=== PATIENT | female | born 1940 | race Caucasian/White ===

== ENCOUNTER → 2016-04-19 | Outpatient (CLI) | payer MEDICARE ==
--- NOTE | 2016-04-19 14:54 | CT ---
EXAMINATION TYPE: CT brain wo con DATE OF EXAM: 04/19/2016 2:41 PM COMPARISON: Previous study dated 11/28/2013 HISTORY: MCCULLOUGH, TIA CT DLP: 1085 mGycm Automated exposure control for dose reduction was used. FINDINGS: There is evidence of old, bilateral occipital infarct. The left occipital infarct extends i nto the posterior parietal region. Central structures are midline. There is no evidence of hydrocephalus. No acute focal lesion, mass ef fect or midline shift is seen. I do not see evidence of intracranial blood. Visualized portions of the paranasal sinuses and mastoids are clear. No depressed skull fracture is s een. IMPRESSION: 1. OLD, BILATERAL OCCIPITAL INFARCT. 2. NO ACUTE INTRACRANIAL ABNORMALITY.
--- NOTE | 2016-04-19 15:12 | US ---
EXAMINATION TYPE: US carotid duplex BILAT DATE OF EXAM: 04/19/2016 2:53 PM COMPARISON: NONE CLINICAL HISTORY: G45.9 tia. EXAM MEASUREMENTS: RIGHT: Peak Systolic Velocity (PSV) cm/sec ----- Right CCA: 67.7 ----- Right ICA: 72.1 ----- Right ECA: 99.1 ICA/CCA ratio: 1.1 RIGHT: End Diastole cm/sec ----- Right CCA: 11.9 ----- Right ICA: 30.2 ----- Right ECA: 0.0 LEFT: Peak Systolic Velocity (PSV) cm/sec ----- Left CCA: 69.4 ----- Left ICA: 79.9 ----- Left ECA: 106.9 ICA/CCA ratio: 1.2 LEFT: End Diastole cm/sec ----- Left CCA: 15.4 ----- Left ICA: 27.6 ----- Left ECA: 0.0 VERTEBRALS (direction of flow): Right Vertebral: Antegrade Left Vertebral: Antegrade TECHNOLOGIST IMPRESSION: No significant stenosis seen, no elevated velocities, bilateral plaque note d. Intimal thickening is present. There are some scattered small plaques present. IMPRESSION: 1. Atheromatous plaquing and intimal thickening without significant flow-limiting stenosis. Criteria for Assigning % of Stenosis / Diameter reduction (Estimation based on the indirect measurements of the internal carotid artery velocities (ICA PSV). 1. Normal (no stenosis)=ICA PSV < 125 cm/s: ratio < 2.0: ICA EDV<40 cm/s. 2. Less than 50% stenosis=ICA PSV < 125 cm/s: ratio < 2.0: ICA EDV<40 cm/s. 3. 50 to 69% stenosis=ICA PSV of 125 to 230 cm/s: ration 2.0 ? 4.0: ICA EDV 40-100 cm/s. 4. Greater than 70% stenosis to near occlusion= ICA PSV > 230 cm/s: ratio > 4.0: ICA EDV > 100 cm/s. 5. Near occlusion= ICA PSV velocities may be low or undetectable: variable ratio and ICA EDV. 6. Total occlusion=unable to detect flow.
--- NOTE | 2016-04-19 19:12 | ECHOF ---
Referral Reason:R01.1 heart murmur MEASUREMENTS -------- HEIGHT: 157.5 cm WEIGHT: 83.5 kg BP: 188/80 RVIDd: 2.8 cm (< 3.3) IVSd: 1.3 cm (0.6 - 1.1) LVIDd: 4.5 cm (3.9 - 5.3) LVPWd: 1.3 cm (0.6 - 1.1) IVSs: 1.9 cm LVIDs: 2.9 cm LVPWs: 1.8 cm LA Diam: 3.8 cm (2.7 - 3.8) LAESV Index (A-L): 31.58 ml/m Ao Diam: 3.4 cm (2.0 - 3.7) AV Cusp: 2.3 cm (1.5 - 2.6) MV EXCURSION: 12.039 mm (> 18.000) MV EF SLOPE: 37 mm/s (70 - 150) EPSS: 0.4 cm MV E Luis: 1.19 m/s MV DecT: 284 ms MV A Luis: 1.33 m/s MV E/A Ratio: 0.89 AR PHT: 1040 ms RAP: 5.00 mmHg RVSP: 28.31 mmHg FINDINGS -------- Sinus rhythm. This was a technically good study. The left ventricular size is normal. There is mild concentric left ventricular hypertrophy. Overall left ventricular systolic function is normal with, an EF between 55 - 60 %. The right ventricle is normal in size and function. LA is midly dilated 29-33ml/m2. The right atrium is normal in size. There is mild to moderate aortic valve sclerosis. There is mild aortic regurgitation. The mitral valve leaflets are mildly thickened. Mild mitral annular calcification present. Mild tricuspid regurgitation present. Right ventricular systolic pressure is normal at < 35 mmHg. Trace/mild (physiologic) pulmonic regurgitation. The aortic root size is normal. Normal inferior vena cava with normal inspiratory collapse consistent with estimated right atrial pressure of 5 mmHg. There is no pericardial effusion. CONCLUSIONS -------- 1. Sinus rhythm. 2. There is mild aortic regurgitation. 3. The mitral valve leaflets are mildly thickened. 4. Mild mitral annular calcification present. 5. Mild tricuspid regurgitation present. 6. Right ventricular systolic pressure is normal at < 35 mmHg. 7. Trace/mild (physiologic) pulmonic regurgitation. 8. The aortic root size is normal. 9. Normal inferior vena cava with normal inspiratory collapse consistent with estimated right atrial pressure of 5 mmHg. 10. There is no pericardial effusion. 11. This was a technically good study. 12. The left ventricular size is normal. 13. There is mild concentric left ventricular hypertrophy. 14. Overall left ventricular systolic function is normal with, an EF between 55 - 60 %. 15. The right ventricle is normal in size and function. 16. LA is midly dilated 29-33ml/m2. 17. The right atrium is normal in size. 18. There is mild to moderate aortic valve sclerosis. VACCINE CUSTOMER REPRESENTATIVE: Natividad Falcon RDCS
== END | disposition home or self-care (01) ==
LOC: RADECHMAIN 13:41
PROVIDERS: ATTEND Family Medicine
DX: G45.9 Transient cerebral ischemic attack, unspecified (principal); R01.1 Cardiac murmur, unspecified
CPT/HCPCS: 70450; 93306; 93880

== ENCOUNTER → 2016-09-26 | Outpatient (CLI) | payer MEDICARE ==
--- NOTE | 2016-09-26 14:25 | XR ---
EXAMINATION TYPE: XR foot complete LT DATE OF EXAM: 09/26/2016 CLINICAL HISTORY: pain TECHNIQUE: Frontal, lateral and oblique images of the left foot are obtained. COMPARISON: None. FINDINGS: There is no acute fracture/dislocation evident. Moderate hallux valgus deformity at the fi rst metatarsal phalangeal joint. The overlying soft tissue appears unremarkable. IMPRESSION: There is no acute fracture or dislocation. ICD 10 NO FRACTURE, INITIAL EVALUATION
== END ==
LOC: RADXRMAIN 13:48
PROVIDERS: ATTEND Family Medicine
DX: M79.675 Pain in left toe(s) (principal)

== ENCOUNTER → 2017-05-06 | Outpatient (CLI) | payer MEDICARE ==
--- NOTE | 2017-05-06 10:15 | XR ---
EXAMINATION TYPE: XR ankle complete LT DATE OF EXAM: 05/06/2017 CLINICAL HISTORY: Left ankle pain after twisting injury with swelling. TECHNIQUE: Frontal, lateral and oblique images of the left ankle are obtained. COMPARISON: None. FINDINGS: There is no acute fracture/dislocation evident in the left ankle. The ankle mortise appea rs within normal limits. There is moderate soft tissue swelling about the ankle joint. Atheromatous c alcifications are seen of the dorsalis pedis and posterior tibial arteries. Small plantar and moderat e Achilles enthesophytes are noted. IMPRESSION: Moderate soft tissue swelling of the ankle indicative of soft tissue injury. MR could be performed to further evaluate for ligamentous and tendinous injury. No evidence of fracture or disloc ation of the left ankle.
== END | disposition home or self-care (01) ==
LOC: RADXRMAIN 08:17
PROVIDERS: ATTEND Family Medicine
DX: M79.89 Other specified soft tissue disorders (principal); M25.572 Pain in left ankle and joints of left foot

== ENCOUNTER → 2017-11-05 | Outpatient (CLI) | payer MEDICARE ==
[2017-11-05 17:34] LABS: Potassium 4.3 mmol/L (3.5-5.1)
[2017-11-06 03:48] LABS: Hemoglobin A1C 7.6 % (4.0-6.0)
== END | disposition home or self-care (01) ==
LOC: LABWHC1 16:47
PROVIDERS: ATTEND Family Medicine
DX: E11.9 Type 2 diabetes mellitus without complications (principal); I10 Essential (primary) hypertension; Z79.899 Other long term (current) drug therapy
CPT/HCPCS: 36415; 80051; 82565; 83036; 83880; 84520

== ENCOUNTER → 2018-01-19 | Outpatient (CLI) | payer MEDICARE ==
[2018-01-19 10:49] LABS: Basophils % (A) 1 %; Eosinophils # (A) 0.2 k/uL (0-0.7); Eosinophils % (A) 3 %; HCT 37.6 % (34.0-46.0); HGB 12.4 gm/dL (11.4-16.0); Lymphocytes # (A) 2.2 k/uL (1.0-4.8); Lymphocytes % (A) 31 %; MCH 31.1 pg (25.0-35.0); MCV 94.1 fL (80.0-100.0); Mean Platelet Volume 7.6; Monocytes # (A) 0.5 k/uL (0-1.0); Monocytes % (A) 8 %; Neutrophils # (A) 3.9 k/uL (1.3-7.7); Neutrophils % (A) 56 %; Platelet Count 201 k/uL (150-450); RBC 3.99 m/uL (3.80-5.40); RDW 12.9 % (11.5-15.5)
[2018-01-19 18:07] LABS: Anion Gap 9.2 mmol/L (4.00-12.00); Carbon Dioxide 30.8 mmol/L (21.6-31.8); Potassium 4.3 mmol/L (3.5-5.5)
== END | disposition home or self-care (01) ==
LOC: LABWHC1 09:42
PROVIDERS: ATTEND Family Medicine
DX: I10 Essential (primary) hypertension (principal); B89 Unspecified parasitic disease; Z79.899 Other long term (current) drug therapy
CPT/HCPCS: 36415; 80051; 80061; 82565; 84443; 84520; 85025

== ENCOUNTER 2018-03-08 12:57 | Emergency (ER) | payer MEDICARE ==
[2018-03-08 13:24] VITALS: RESP 18
[2018-03-08] MEDS ORDERED: SODIUM CHLORIDE 0.9% 1,000 ML IV STA (13:53)
[2018-03-08 14:34] LABS: Basophils % (A) 0 %; Eosinophils # (A) 0.1 k/uL (0-0.7); Eosinophils % (A) 1 %; HCT 39.6 % (34.0-46.0); HGB 13.2 gm/dL (11.4-16.0); Lymphocytes # (A) 0.8 k/uL (1.0-4.8); Lymphocytes % (A) 5 %; MCH 30.9 pg (25.0-35.0); MCHC 33.3 g/dL (31.0-37.0); MCV 92.7 fL (80.0-100.0); Mean Platelet Volume 7.8; Monocytes # (A) 0.6 k/uL (0-1.0); Monocytes % (A) 4 %; Neutrophils # (A) 13.3 k/uL (1.3-7.7); Neutrophils % (A) 89 %; Platelet Count 205 k/uL (150-450); RBC 4.27 m/uL (3.80-5.40); RDW 12.9 % (11.5-15.5)
[2018-03-08 14:42] LABS: Albumin 4.2 g/dL (3.5-5.0); Calcium 9.7 mg/dL (8.4-10.2); Potassium 4.3 mmol/L (3.5-5.1); Total Bilirubin 0.5 mg/dL (0.2-1.3)
--- NOTE | 2018-03-08 15:26 | ED ---
Abdominal Pain HPI - General Chief Complaint: Urogenital Stated Complaint: Hematuria Time Seen by Provider: 03/08/18 13:52 Source: patient, RN notes reviewed, old records reviewed Mode of arrival: ambulatory Limitations: no limitations - History of Present Illness Initial Comments: This is a 78-year-old female the ER for evaluation. States she is presenting for evaluation regards to abdominal pain. Right flank pain. Patient also had hematuria symptoms episodic intermittent 3 days. No prior history of similar complaint no time is no urge incontinence no fever no burning with urination. No prior history of kidney stones currently. Patient denies any other complaints no current abdominal pain. No bowel issues MD Complaint: abdominal pain, flank pain (Right) -: days(s) (3) Location: suprapubic Radiation: RLQ, R flank Migration to: epigastric Severity: moderate Severity scale (1-10): 6 Quality: stabbing Consistency: constant Improves With: nothing Worsens With: nothing Associated Symptoms: denies other symptoms, nausea - Related Data Home Medications Medication Instructions Recorded Confirmed Aspirin 81 mg PO DAILY 11/29/13 03/08/18 Furosemide [Lasix] 40 mg PO DAILY 11/29/13 03/08/18 Simvastatin [Zocor] 80 mg PO HS 11/29/13 03/08/18 Carvedilol [Coreg] 6.25 mg PO BID 03/08/18 03/08/18 Cholecalciferol [Vitamin D3] 1,000 unit PO DAILY 03/08/18 03/08/18 Linagliptin [Tradjenta] 5 mg PO HS 03/08/18 03/08/18 Magnesium 200 mg PO DAILY 03/08/18 03/08/18 Multivitamins, Thera [Multivitamin 1 tab PO DAILY 03/08/18 03/08/18 (formulary)] Repaglinide 0.5 mg PO BID-W/MEALS 03/08/18 03/08/18 predniSONE 10 mg PO DAILY 03/08/18 03/08/18 Allergies Allergy/AdvReac Type Severity Reaction Status Date / Time No Known Allergies Allergy Verified 03/08/18 13:58 Review of Systems ROS Statement: Those systems with pertinent positive or pertinent negative responses have been documented in the HPI. ROS Other: All systems not noted in ROS Statement are negative. Past Medical History Past Medical History: Diabetes Mellitus, Hyperlipidemia, Hypertension History of Any Multi-Drug Resistant Organisms: None Reported Past Surgical History: Hysterectomy, Tonsillectomy Additional Past Surgical History / Comment(s): right leg brittney stripping Past Anesthesia/Blood Transfusion Reactions: No Reported Reaction Past Psychological History: No Psychological Hx Reported Smoking Status: Former smoker Past Alcohol Use History: None Reported Past Drug Use History: None Reported - Past Family History Father Family Medical History: No Reported History Mother Family Medical History: No Reported History General Exam Limitations: no limitations General appearance: alert, in no apparent distress Head exam: Present: atraumatic, normocephalic, normal inspection Eye exam: Present: normal appearance, PERRL, EOMI. Absent: scleral icterus, conjunctival injection, periorbital swelling ENT exam: Present: normal exam, mucous membranes moist Neck exam: Present: normal inspection. Absent: tenderness, meningismus, lymphadenopathy Respiratory exam: Present: normal lung sounds bilaterally. Absent: respiratory distress, wheezes, rales, rhonchi, stridor Cardiovascular Exam: Present: regular rate, normal rhythm, normal heart sounds. Absent: systolic murmur, diastolic murmur, rubs, gallop, clicks GI/Abdominal exam: Present: soft, normal bowel sounds. Absent: distended, tenderness, guarding, rebound, rigid Extremities exam: Present: normal inspection, full ROM, normal capillary refill. Absent: tenderness, pedal edema, joint swelling, calf tenderness Back exam: Present: normal inspection Neurological exam: Present: alert, oriented X3, CN II-XII intact Psychiatric exam: Present: normal affect, normal mood Skin exam: Present: warm, dry, intact, normal color. Absent: rash Course Vital Signs 03/08/18 13:22 Temperature 98.5 F Pulse Rate 97 Respiratory 18 Rate Blood Pressure 106/57 O2 Sat by Pulse 97 Oximetry - Reevaluation(s) Reevaluation #1: 03/08/18 17:43 Medical record is reviewed A she is without significant complaint able to urinate without difficulty, Reevaluation #2: 03/08/18 18:13 Patient did have prevoid greater than 500 post void less than 200 Medical Decision Making - Medical Decision Making 78 female the ER with flank pain that section recently passed kidney stone. No blood in the urine no urinary check infection we'll culture urine, patient can be discharged home - Lab Data Result diagrams: 03/08/18 14:15 12/30/18 14:15 Lab Results 03/08/18 03/08/18 03/08/18 Range/Units 14:15 14:15 15:20 WBC 15.0 H (3.8-10.6) k/uL RBC 4.27 (3.80-5.40) m/uL Hgb 13.2 (11.4-16.0) gm/dL Hct 39.6 (34.0-46.0) % MCV 92.7 (80.0-100.0) fL MCH 30.9 (25.0-35.0) pg MCHC 33.3 (31.0-37.0) g/dL RDW 12.9 (11.5-15.5) % Plt Count 205 (150-450) k/uL Neutrophils % 89 % Lymphocytes % 5 % Monocytes % 4 % Eosinophils % 1 % Basophils % 0 % Neutrophils # 13.3 H (1.3-7.7) k/uL Lymphocytes # 0.8 L (1.0-4.8) k/uL Monocytes # 0.6 (0-1.0) k/uL Eosinophils # 0.1 (0-0.7) k/uL Basophils # 0.0 (0-0.2) k/uL Sodium 144 (137-145) mmol/L Potassium 4.3 (3.5-5.1) mmol/L Chloride 106 (98-107) mmol/L Carbon Dioxide 30 (22-30) mmol/L Anion Gap 8 mmol/L BUN 33 H (7-17) mg/dL Creatinine 1.53 H (0.52-1.04) mg/dL Est GFR (CKD-EPI)AfAm 38 (>60 ml/min/1.73 sqM) Est GFR (CKD-EPI)NonAf 33 (>60 ml/min/1.73 sqM) Glucose 164 H (74-99) mg/dL Calcium 9.7 (8.4-10.2) mg/dL Total Bilirubin 0.5 (0.2-1.3) mg/dL AST 20 (14-36) U/L ALT 25 (9-52) U/L Alkaline Phosphatase 68 (38-126) U/L Total Protein 7.0 (6.3-8.2) g/dL Albumin 4.2 (3.5-5.0) g/dL Amylase 87 (30-110) U/L Lipase 434 H (23-300) U/L Urine Color Light Yellow Urine Appearance Clear (Clear) Urine pH 7.0 (5.0-8.0) Ur Specific [place] 1.005 (1.001-1.035) Urine Protein Negative (Negative) Urine Glucose (UA) Negative (Negative) Urine Ketones Negative (Negative) Urine Blood Negative (Negative) Urine Nitrite Negative (Negative) Urine Bilirubin Negative (Negative) Urine Urobilinogen <2.0 (<2.0) mg/dL Ur Leukocyte Esterase Negative (Negative) - Radiology Data Radiology results: report reviewed (CT head and pelvis is negative for significant acute disease), image reviewed Disposition Clinical Impression: Right flank pain Disposition: HOME SELF-CARE Condition: Good Instructions: Flank Pain (ED) Is patient prescribed a controlled substance at d/c from ED?: No Referrals: Tu Coon MD [Primary Care Provider] - 1-2 days
[2018-03-08 15:43] LABS: Appearance,Urine Clear (Clear); Bilirubin,Urine Negative (Negative); Blood,Urine Negative (Negative); Color,Urine Light Yellow; Glucose,Urine (UA) Negative (Negative); Ketones,Urine Negative (Negative); Leukocyte Esterase,Urine Negative (Negative); Nitrite,Urine Negative (Negative); Protein,Urine Negative (Negative); Specific Gravity,Urine 1.005 (1.001-1.035); Urobilinogen,Urine <2.0 mg/dL (<2.0)
--- NOTE | 2018-03-08 16:36 | CT ---
EXAMINATION TYPE: CT abdomen pelvis wo con DATE OF EXAM: 03/08/2018 COMPARISON: 03/04/2012 HISTORY: hematuria CT DLP: 692.5 mGycm Automated exposure control for dose reduction was used. TECHNIQUE: Helical acquisition of images was performed from the lung bases through the pelvis. FINDINGS: There is some mild atelectasis at the lung bases. There is no pleural effusion. Liver shows no focal defect. There are numerous calcified gallstones. Bile ducts are not dilated. There is no evidence of a pancreatic mass. Spleen has normal size and contour. There is no adrenal mass. There is slight prominence of the left ureter but no ureteral stones seen. Bladder distends smoothly. There is no free fluid in the pelvis. I see no renal calculus. There is va scular calcification. There is no retroperitoneal adenopathy. There is no ascites. There are a few sigmoid diverticula. There is no sign of diverticulitis. There i s no inguinal hernia. Appendix appears normal. There is no sign of a bowel obstruction. There are spo ndylotic changes in the lumbar spine. I see no focal bone destruction. There is no evidence of free a ir. IMPRESSION: THERE IS VERY MILD ENLARGEMENT OF THE LEFT URETER AND TO LESSER EXTENT THE RIGHT URETER COMPARED TO O LD EXAM WITHOUT A STONE SEEN. NO RENAL CALCULUS SEEN. I DO NOT SUSPECT RENAL OBSTRUCTION. THERE IS CLEARING OF THE INFLAMMATORY CHANGES OF THE DESCENDING COLON COMPARED TO OLD EXAM. THERE IS CLEARING OF THE DILATED SMALL BOWEL COMPARED TO OLD EXAM. NUMEROUS CALCIFIED GALLSTONES. I DO NOT SEE A CAUSE FOR HEMATURIA.
[2018-03-08 18:12] VITALS: BP 148/70; PULSE 95; TEMP 98.1
== END 2018-03-08 18:10 | disposition home or self-care (01) ==
LOC: EC 12:57
DX: R10.31 Right lower quadrant pain (principal); R10.13 Epigastric pain; R11.0 Nausea; E11.9 Type 2 diabetes mellitus without complications; E78.5 Hyperlipidemia, unspecified; I10 Essential (primary) hypertension; Z87.891 Personal history of nicotine dependence; Z79.82 Long term (current) use of aspirin; Z79.52 Long term (current) use of systemic steroids; Z79.899 Other long term (current) drug therapy
CPT/HCPCS: 36415; 74176; 80053; 81003; 82150; 83690; 85025; 96360; 99284

== ENCOUNTER → 2018-04-14 | Outpatient (CLI) | payer MEDICARE ==
[2018-04-14 16:44] LABS: Anion Gap 8.1 mmol/L (4.00-12.00); Carbon Dioxide 34.9 mmol/L (21.6-31.8); Potassium 4.3 mmol/L (3.5-5.5)
== END | disposition home or self-care (01) ==
LOC: LABWHC1 08:38
PROVIDERS: ATTEND Family Medicine
DX: I10 Essential (primary) hypertension (principal); E11.9 Type 2 diabetes mellitus without complications
CPT/HCPCS: 36415; 80051; 82150; 82565; 83690; 84520

== ENCOUNTER → 2018-06-22 | Outpatient (CLI) | payer MEDICARE ==
[2018-06-22 16:52] LABS: Anion Gap 9.1 mmol/L (4.00-12.00); Carbon Dioxide 30.9 mmol/L (21.6-31.8); LDL Cholesterol,Calculated 115.4 mg/dL (0.0-131.0); Potassium 4.2 mmol/L (3.5-5.5); VLDL Calculation 44.6 mg/dL (5.00-40.00)
[2018-06-22 20:23] LABS: Hemoglobin A1C 9.4 % (4.0-6.0)
== END | disposition home or self-care (01) ==
LOC: LABWHC1 08:44
PROVIDERS: ATTEND Family Medicine
DX: E11.9 Type 2 diabetes mellitus without complications (principal)
CPT/HCPCS: 36415; 80051; 80061; 82043; 82565; 82570; 83036; 84520

== ENCOUNTER → 2018-07-03 | Outpatient (CLI) | payer MEDICARE ==
[2018-07-03 13:15] LABS: Basophils % (A) 0 %; Eosinophils # (A) 0.2 k/uL (0-0.7); Eosinophils % (A) 1 %; HCT 39.4 % (34.0-46.0); HGB 13.2 gm/dL (11.4-16.0); Lymphocytes # (A) 1.3 k/uL (1.0-4.8); Lymphocytes % (A) 12 %; MCH 30.9 pg (25.0-35.0); MCHC 33.4 g/dL (31.0-37.0); MCV 92.7 fL (80.0-100.0); Mean Platelet Volume 8.3; Monocytes # (A) 0.4 k/uL (0-1.0); Monocytes % (A) 4 %; Neutrophils % (A) 81 %; Platelet Count 214 k/uL (150-450); RBC 4.25 m/uL (3.80-5.40); RDW 13.6 % (11.5-15.5); WBC 11.1 k/uL (3.8-10.6)
== END | disposition home or self-care (01) ==
LOC: LABWHC1 12:10
PROVIDERS: ATTEND Family Medicine
DX: B89 Unspecified parasitic disease (principal)
CPT/HCPCS: 36415; 85025

== ENCOUNTER 2018-08-12 10:03 | Emergency (ER) | payer MEDICARE ==
[2018-08-12 10:10] VITALS: RESP 18
[2018-08-12] MEDS ORDERED: SODIUM CHLORIDE 0.9% 500 ML 500 ML IV STA (10:34)
[2018-08-12] MEDS ORDERED: MECLIZINE 12.5 MG TAB PO STA (10:35)
--- NOTE | 2018-08-12 11:00 | ED ---
General Adult HPI - General Chief complaint: Dizziness Stated complaint: fall, dizziness Time Seen by Provider: 08/12/18 10:15 Source: patient, RN notes reviewed Mode of arrival: ambulatory Limitations: no limitations - History of Present Illness Initial comments: 78-year-old female with a past medical history of hyperlipidemia, hypertension, diabetes mellitus presents to the emergency department for a chief complaint of weakness. Patient states that she got up from her bed to urinate several times throughout the night and had no difficulties. However when she got up today she felt a little dizzy and had some generalized weakness. States her arms and legs bilaterally did not want to work properly. Patient does state that she has had this dizziness for years and it comes and goes. States she fell and hit her head against a china cabinet. Patient also fell on her right hip. States it is painful but she is able to ambulate on it. Patient denies loss of consciousness. She does admit to taking Plavix. Patient states she has a big "goose egg" on her head, denies any significant headaches. Denies any neck or back pain. Denies any fevers or chills. Denies cough or dysuria.Patient has no other complaints at this time including shortness of breath, chest pain, abdominal pain, nausea or vomiting, headache, or visual changes. - Related Data Home Medications Medication Instructions Recorded Confirmed Aspirin 81 mg PO DAILY 11/29/13 08/12/18 Furosemide [Lasix] 40 mg PO DAILY 11/29/13 08/12/18 Simvastatin [Zocor] 80 mg PO HS 11/29/13 08/12/18 Magnesium 200 mg PO DAILY 03/08/18 08/12/18 Multivitamins, Thera [Multivitamin 1 tab PO DAILY 03/08/18 08/12/18 (formulary)] Repaglinide 0.5 mg PO BID-W/MEALS 03/08/18 08/12/18 predniSONE 10 mg PO DAILY 03/08/18 08/12/18 Carvedilol [Coreg] 12.5 mg PO BID 08/12/18 08/12/18 Clopidogrel [Plavix] 75 mg PO DAILY 08/12/18 08/12/18 Ferrous Sulfate [Feosol] 325 mg PO DAILY 08/12/18 08/12/18 Previous Rx's Medication Instructions Recorded Cephalexin [Keflex] 500 mg PO Q6HR 7 Days cap 08/12/18 Allergies Allergy/AdvReac Type Severity Reaction Status Date / Time No Known Allergies Allergy Verified 08/12/18 10:15 Review of Systems ROS Statement: Those systems with pertinent positive or pertinent negative responses have been documented in the HPI. ROS Other: All systems not noted in ROS Statement are negative. Past Medical History Past Medical History: Diabetes Mellitus, Hyperlipidemia, Hypertension History of Any Multi-Drug Resistant Organisms: None Reported Past Surgical History: Hysterectomy, Tonsillectomy Additional Past Surgical History / Comment(s): right leg brittney stripping Past Anesthesia/Blood Transfusion Reactions: No Reported Reaction Past Psychological History: No Psychological Hx Reported Smoking Status: Former smoker Past Alcohol Use History: None Reported Past Drug Use History: None Reported - Past Family History Father Family Medical History: No Reported History Mother Family Medical History: No Reported History General Exam Limitations: no limitations General appearance: alert, in no apparent distress Head exam: Present: normocephalic. Absent: atraumatic (patient has a large 5 cm x 5 cm hematoma noted over the right parietal scalp) Eye exam: Present: normal appearance, PERRL, EOMI. Absent: scleral icterus, conjunctival injection, periorbital swelling, periorbital tenderness (neg raccoon sign) ENT exam: Present: normal exam, normal oropharynx, mucous membranes moist, TM's normal bilaterally (neg hemotympanum), normal external ear exam Neck exam: Present: normal inspection, full ROM. Absent: tenderness, meningismus, lymphadenopathy Respiratory exam: Present: normal lung sounds bilaterally. Absent: respiratory distress, wheezes, rales, rhonchi, stridor Cardiovascular Exam: Present: regular rate, normal rhythm, normal heart sounds. Absent: systolic murmur, diastolic murmur, rubs, gallop, clicks GI/Abdominal exam: Present: soft, normal bowel sounds. Absent: distended, tenderness, guarding, rebound, rigid Extremities exam: Present: full ROM (Full ROM of the right hip), normal capillary refill (Capillary refill less than 2 seconds, DP pulse 2+ in the right lower extremity). Absent: tenderness (No tenderness noted in the right hip), calf tenderness (Tenderness, negative Homans sign) Back exam: Absent: vertebral tenderness (No tenderness noted of the cervical thoracic or lumbar spine) Neurological exam: Present: alert, oriented X3, CN II-XII intact, other (GCS 15) Expanded Patient oriented to: Present: person, place, time Speech: Present: fluid speech Cranial nerves: EOM's Intact: Normal, Tongue Deviation: Normal, Nystagmus: Normal, Facial Sensation: Normal Cerebellar function: Finger to Nose: Normal Upper motor neuron: Pronator Drift: Normal Sensory exam: Upper Extremity Light Touch: Normal, Upper Extremity Pin Prick: Normal, Lower Extremity Light Touch: Normal, Lower Extremity Pin Prick: Normal Motor strength exam: RUE: 5, LUE: 5, RLE: 5, LLE: 5 Eye Response: (4) open spontaneously Motor Response: (6) obeys commands Verbal Response: (5) oriented Evaristo Total: 15 Psychiatric exam: Present: normal affect, normal mood Course Vital Signs 08/12/18 08/12/18 10:06 11:38 Temperature 97.8 F 98.3 F Pulse Rate 61 60 Respiratory 18 18 Rate Blood Pressure 165/77 178/84 O2 Sat by Pulse 98 95 Oximetry Medical Decision Making - Medical Decision Making 78-year-old female presents to the emergency department for a chief complaint of weakness. States that she got up from her bed to urinate several times at the night but had no difficulty. However when she got up today she felt a little dizzy and had some generalized weakness. States that she has had this dizziness for years and comes and goes. Denies dizziness at this time. On exam patient does not have any abdominal or CVA tenderness. She is well-appearing. Complaining of right hip pain. However is ambulatory with minimal assistance. Neurovasc status intact in the right lower leg. No thoracic or lumbar spine tenderness. CBC unremarkable. CMP does show a creatinine of 1.47, near patient's baseline. Troponin less than 0.012. CT brain shows no acute intracranial hemorrhage or midline shift. No significant change from prior. CT C-spine shows no acute fracture or dislocation. No acute fracture or dislocation noted in the right hip or pelvis. Chest x-ray shows cardiomegaly and chronic parenchymal changes without acute pulmonary process. No suspicious focal airspace opacity. High riding humeral head noted with possible rotator cuff tears bilaterally however patient denying any acute pain at this time. Patient does have an acute urinary tract infection noted. Likely cause of p atient's symptoms. Patient will be given Rocephin IV here in the emergency department. Discussed with family and they're comfortable taking patient home. Patient lives with daughter who can assist her. Patient ambulatory in the ER,feeling much better than this morning. Patient will be given Keflex outpatient. However did discuss following up with primary care in 1-2 days and returning here if patient has any worsening symptoms or develops fevers. - Lab Data Result diagrams: 08/12/18 11:20 08/12/18 11:20 Lab Results 08/12/18 08/12/18 08/12/18 Range/Units 11:20 11:20 11:20 WBC 11.5 H (3.8-10.6) k/uL RBC 4.10 (3.80-5.40) m/uL Hgb 12.3 (11.4-16.0) gm/dL Hct 36.6 (34.0-46.0) % MCV 89.2 (80.0-100.0) fL MCH 29.9 (25.0-35.0) pg MCHC 33.5 (31.0-37.0) g/dL RDW 13.8 (11.5-15.5) % Plt Count 278 (150-450) k/uL Neutrophils % 78 % Lymphocytes % 12 % Monocytes % 6 % Eosinophils % 2 % Basophils % 0 % Neutrophils # 8.9 H (1.3-7.7) k/uL Lymphocytes # 1.4 (1.0-4.8) k/uL Monocytes # 0.7 (0-1.0) k/uL Eosinophils # 0.3 (0-0.7) k/uL Basophils # 0.0 (0-0.2) k/uL PT (9.0-12.0) sec INR (<1.2) APTT (22.0-30.0) sec Sodium 144 (137-145) mmol/L Potassium 3.8 (3.5-5.1) mmol/L Chloride 104 (98-107) mmol/L Carbon Dioxide 32 H (22-30) mmol/L Anion Gap 8 mmol/L BUN 31 H (7-17) mg/dL Creatinine 1.47 H (0.52-1.04) mg/dL Est GFR (CKD-EPI)AfAm 39 (>60 ml/min/1.73 sqM) Est GFR (CKD-EPI)NonAf 34 (>60 ml/min/1.73 sqM) Glucose 65 L (74-99) mg/dL Calcium 9.3 (8.4-10.2) mg/dL Magnesium 2.5 H (1.6-2.3) mg/dL Total Bilirubin 0.6 (0.2-1.3) mg/dL AST 34 (14-36) U/L ALT 25 (9-52) U/L Alkaline Phosphatase 68 (38-126) U/L Troponin I (0.000-0.034) ng/mL NT-Pro-B Natriuret Pep 376 pg/mL Total Protein 6.6 (6.3-8.2) g/dL Albumin 4.1 (3.5-5.0) g/dL Urine Color Urine Appearance (Clear) Urine pH (5.0-8.0) Ur Specific [place] (1.001-1.035) Urine Protein (Negative) Urine Glucose (UA) (Negative) Urine Ketones (Negative) Urine Blood (Negative) Urine Nitrite (Negative) Urine Bilirubin (Negative) Urine Urobilinogen (<2.0) mg/dL Ur Leukocyte Esterase (Negative) Urine RBC (0-5) /hpf Urine WBC (0-5) /hpf Urine WBC Clumps (None) /hpf Ur Squamous Epith Cells (0-4) /hpf Urine Bacteria (None) /hpf 08/12/18 08/12/18 08/12/18 Range/Units 11:20 11:20 11:20 WBC (3.8-10.6) k/uL RBC (3.80-5.40) m/uL Hgb (11.4-16.0) gm/dL Hct (34.0-46.0) % MCV (80.0-100.0) fL MCH (25.0-35.0) pg MCHC (31.0-37.0) g/dL RDW (11.5-15.5) % Plt Count (150-450) k/uL Neutrophils % % Lymphocytes % % Monocytes % % Eosinophils % % Basophils % % Neutrophils # (1.3-7.7) k/uL Lymphocytes # (1.0-4.8) k/uL Monocytes # (0-1.0) k/uL Eosinophils # (0-0.7) k/uL Basophils # (0-0.2) k/uL PT 10.3 (9.0-12.0) sec INR 1.0 (<1.2) APTT 22.2 (22.0-30.0) sec Sodium (137-145) mmol/L Potassium (3.5-5.1) mmol/L Chloride (98-107) mmol/L Carbon Dioxide (22-30) mmol/L Anion Gap mmol/L BUN (7-17) mg/dL Creatinine (0.52-1.04) mg/dL Est GFR (CKD-EPI)AfAm (>60 ml/min/1.73 sqM) Est GFR (CKD-EPI)NonAf (>60 ml/min/1.73 sqM) Glucose (74-99) mg/dL Calcium (8.4-10.2) mg/dL Magnesium (1.6-2.3) mg/dL Total Bilirubin (0.2-1.3) mg/dL AST (14-36) U/L ALT (9-52) U/L Alkaline Phosphatase (38-126) U/L Troponin I <0.012 (0.000-0.034) ng/mL NT-Pro-B Natriuret Pep pg/mL Total Protein (6.3-8.2) g/dL Albumin (3.5-5.0) g/dL Urine Color Yellow Urine Appearance Cloudy H (Clear) Urine pH 7.5 (5.0-8.0) Ur Specific [place] 1.010 (1.001-1.035) Urine Protein Trace H (Negative) Urine Glucose (UA) Negative (Negative) Urine Ketones Negative (Negative) Urine Blood Moderate H (Negative) Urine Nitrite Positive H (Negative) Urine Bilirubin Negative (Negative) Urine Urobilinogen <2.0 (<2.0) mg/dL Ur Leukocyte Esterase Large H (Negative) Urine RBC 9 H (0-5) /hpf Urine WBC >182 H (0-5) /hpf Urine WBC Clumps Many H (None) /hpf Ur Squamous Epith Cells 1 (0-4) /hpf Urine Bacteria Rare H (None) /hpf Disposition Clinical Impression: Urinary tract infection, Fall, Head injury Disposition: HOME SELF-CARE Condition: Good Instructions (If sedation given, give patient instructions): Urinary Tract Infection in Women (ED), Head Injury (ED) Additional Instructions: Please take antibiotic as directed. Please follow-up with primary care in 1-2 days. If you're having any worsening symptoms such as fever or concern for additional falls return here to the emergency department. Prescriptions: Cephalexin [Keflex] 500 mg PO Q6HR 7 Days cap Is patient prescribed a controlled substance at d/c from ED?: No Referrals: Tu Coon MD [Primary Care Provider] - 1-2 days Time of Disposition: 12:39
--- NOTE | 2018-08-12 11:05 | CT ---
EXAMINATION TYPE: CT brain cspine wo con DATE OF EXAM: 08/12/2018 COMPARISON: CT brain April 19, 2016. HISTORY: headache and neck pain post fall with blow to head. CT DLP: 1294.3 mGycm. Automated Exposure Control for Dose Reduction was Utilized. TECHNIQUE: CT scan of the head and cervical spine are performed without contrast. FINDINGS: There is no acute intracranial hemorrhage or midline shift identified. There is ventricul ar and sulcal prominence. 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 The globe s are intact and the visualized sinuses are clear. The calvarium is intact. Moderate calcified plaque distal internal carotid arteries is present bilaterally. Cervical spine is visualized in its entirety from C1 through upper thoracic levels and demonstrates s atisfactory alignment without evidence of acute fracture or dislocation. Prevertebral soft tissue ap pears within normal limits. The C1-C2 articulation is within normal limits on the coronal images. V ertebral body heights are maintained. There is moderate multilevel disc space narrowing and spurring C3-C4 through C5-C6 levels. Posterior spur disc complexes are effacing anterior thecal sac at C4-C5 a nd C5-C6 levels on sagittal images. Review of axial images shows multilevel uncovertebral facet degen erative changes contributing to multilevel bilateral neural foraminal narrowing. Left thyroid lobe is small in size. Visualized lung apices show emphysematous change and moderate pleural/parenchymal sca rring posteriorly. There is mild to moderate calcified plaque centered near bilateral carotid bulbs. IMPRESSION: 1. There is no acute fracture or dislocation evident in the cervical spine. 2. No acute intracranial hemorrhage or midline shift is seen. No significant change from prior.
--- NOTE | 2018-08-12 11:06 | XR ---
EXAMINATION TYPE: XR chest 2V DATE OF EXAM: 08/12/2018 COMPARISON: Chest x-ray November 28, 2013 HISTORY: History of COPD with weakness. TECHNIQUE: Frontal and lateral views of the chest are obtained. FINDINGS: There is chronic emphysematous change without suspicious focal air space opacity, pleural effusion, or pneumothorax seen. The cardiac silhouette size remains enlarged with atherosclerotic ch keeley in the aortic knob. Multilevel spurring in the thoracic spine is present. High riding humeral he ads suggest chronic rotator cuff tears bilaterally IMPRESSION: Cardiomegaly and chronic parenchymal change without acute pulmonary process.
--- NOTE | 2018-08-12 11:11 | XR ---
EXAMINATION TYPE: XR Hip RT and AP Pelvis DATE OF EXAM: 08/12/2018 COMPARISON: CT abdomen pelvis March 08, 2018. HISTORY: Pelvic and right hip pain after falling tree today. TECHNIQUE: A single AP view of the pelvis is obtained. Two views of the right hip are obtained. FINDINGS: There is no acute fracture/dislocation evident in the pelvis. The sacroiliac joints appea r symmetric and unremarkable. Mild to moderate axial joint space loss and acetabular spurring in bot h hips is redemonstrated. Vascular calcification bilateral groin region is seen. Two views of right hip show no acute fracture or dislocation. There is redemonstration of well-define d ossific fragment from the greater trochanter superior aspect. No focal lytic or sclerotic lesion se en in the proximal right femur. Right groin vascular calcification noted. IMPRESSION: There is no acute fracture or dislocation in the pelvis or right hip.
[2018-08-12 11:34] LABS: Basophils % (A) 0 %; Eosinophils # (A) 0.3 k/uL (0-0.7); Eosinophils % (A) 2 %; HCT 36.6 % (34.0-46.0); HGB 12.3 gm/dL (11.4-16.0); Lymphocytes # (A) 1.4 k/uL (1.0-4.8); Lymphocytes % (A) 12 %; MCH 29.9 pg (25.0-35.0); MCHC 33.5 g/dL (31.0-37.0); MCV 89.2 fL (80.0-100.0); Mean Platelet Volume 7.7; Monocytes # (A) 0.7 k/uL (0-1.0); Monocytes % (A) 6 %; Neutrophils # (A) 8.9 k/uL (1.3-7.7); Neutrophils % (A) 78 %; Platelet Count 278 k/uL (150-450); RDW 13.8 % (11.5-15.5); WBC 11.5 k/uL (3.8-10.6)
[2018-08-12 11:42] VITALS: TEMP 98.3
[2018-08-12 11:42] LABS: Albumin 4.1 g/dL (3.5-5.0); Calcium 9.3 mg/dL (8.4-10.2); Magnesium 2.5 mg/dL (1.6-2.3); Potassium 3.8 mmol/L (3.5-5.1); Total Bilirubin 0.6 mg/dL (0.2-1.3); Total Protein 6.6 g/dL (6.3-8.2)
[2018-08-12 11:49] LABS: Partial Thromboplastin Time 22.2 sec (22.0-30.0); Prothrombin Time 10.3 sec (9.0-12.0)
[2018-08-12 11:51] LABS: Appearance,Urine Cloudy (Clear); Bacteria,Urine Rare /hpf; Bilirubin,Urine Negative (Negative); Blood,Urine Moderate (Negative); Color,Urine Yellow; Glucose,Urine (UA) Negative (Negative); Ketones,Urine Negative (Negative); Leukocyte Esterase,Urine Large (Negative); Nitrite,Urine Positive (Negative); PH, Urine 7.5 (5.0-8.0); Protein,Urine Trace (Negative); RBC,Urine 9 /hpf (0-5); Squamous Epithelial Cell,Urine 1 /hpf (0-4); Urobilinogen,Urine <2.0 mg/dL (<2.0); WBC,Urine >182 /hpf (0-5)
[2018-08-12] MEDS ORDERED: cefTRIAXone IN SWFI 1,000 MG/10 ML SYRINGE IVP STA (12:01)
[2018-08-12 12:51] VITALS: BP 165/78; PULSE 78
== END 2018-08-12 13:00 | disposition home or self-care (01) ==
LOC: EC 10:03
DX: S09.90XA Unspecified injury of head, initial encounter (principal); N39.0 Urinary tract infection, site not specified; M25.551 Pain in right hip; I51.7 Cardiomegaly; E11.9 Type 2 diabetes mellitus without complications; I10 Essential (primary) hypertension; E78.5 Hyperlipidemia, unspecified; Z79.02 Long term (current) use of antithrombotics/antiplatelets; Z79.82 Long term (current) use of aspirin; Z79.84 Long term (current) use of oral hypoglycemic drugs; Z79.51 Long term (current) use of inhaled steroids; Z79.899 Other long term (current) drug therapy; Z87.891 Personal history of nicotine dependence; W18.09XA Striking against other object with subsequent fall, initial encounter; Y92.009 Unspecified place in unspecified non-institutional (private) residence as the place of occurrence of the external cause
CPT/HCPCS: 36415; 93005; 83880; 80053; 83735; 84484; 85025; 85610; 85730; 81001; 87040; 87086; 73502; 71046; 72125; 70450; 99284; 96374; 96361; J0696

== ENCOUNTER → 2018-11-02 | Outpatient (CLI) | payer MEDICARE ==
[2018-11-02 18:43] LABS: African American GFR (CKD) 38.5 (60.0-200.0); Anion Gap 9.9 mmol/L (4.00-12.00); Carbon Dioxide 32.1 mmol/L (21.6-31.8); Magnesium 2.4 mg/dL (1.5-2.4); Potassium 4.3 mmol/L (3.5-5.5)
== END | disposition home or self-care (01) ==
LOC: LABWHC1 08:46
PROVIDERS: ATTEND Family Medicine
DX: I10 Essential (primary) hypertension (principal); E11.9 Type 2 diabetes mellitus without complications; Z79.899 Other long term (current) drug therapy
CPT/HCPCS: 36415; 80051; 82565; 82607; 83735; 84520

== ENCOUNTER 2018-12-01 16:05 | Inpatient (IN) | payer MEDICARE ==
[2018-12-01 16:53] VITALS: BMI 73.0
[2018-12-01 17:31] LABS: Glucose,Whole Blood 184 mg/dL (75-99)
[2018-12-01 18:17] LABS: Basophils % (A) 0 %; Eosinophils # (A) 0.1 k/uL (0-0.7); Eosinophils % (A) 1 %; HCT 36.1 % (34.0-46.0); HGB 11.9 gm/dL (11.4-16.0); Lymphocytes # (A) 1.2 k/uL (1.0-4.8); Lymphocytes % (A) 13 %; MCH 30.7 pg (25.0-35.0); MCHC 32.9 g/dL (31.0-37.0); MCV 93.3 fL (80.0-100.0); Mean Platelet Volume 8.4; Monocytes # (A) 0.4 k/uL (0-1.0); Monocytes % (A) 5 %; Neutrophils # (A) 7.1 k/uL (1.3-7.7); Neutrophils % (A) 80 %; Platelet Count 193 k/uL (150-450); RBC 3.87 m/uL (3.80-5.40); RDW 13.1 % (11.5-15.5); WBC 8.8 k/uL (3.8-10.6)
[2018-12-01 18:24] LABS: Calcium 9.1 mg/dL (8.4-10.2); Potassium 3.4 mmol/L (3.5-5.1)
[2018-12-01 19:54] LABS: Amorphous Sediment,Urine Rare /hpf; Appearance,Urine Clear (Clear); Bacteria,Urine Occasional /hpf; Bilirubin,Urine Negative (Negative); Blood,Urine Negative (Negative); Color,Urine Light Yellow; Glucose,Urine (UA) Negative (Negative); Ketones,Urine Negative (Negative); Leukocyte Esterase,Urine Trace (Negative); Nitrite,Urine Negative (Negative); PH, Urine 7.5 (5.0-8.0); Protein,Urine Negative (Negative); RBC,Urine <1 /hpf (0-5); Specific Gravity,Urine 1.009 (1.001-1.035); Squamous Epithelial Cell,Urine 1 /hpf (0-4); Urobilinogen,Urine <2.0 mg/dL (<2.0); WBC,Urine 6 /hpf (0-5)
[2018-12-01] MEDS: GABAPENTIN 400 MG CAP PO SCH (21:46)
[2018-12-01] MEDS: ATORVASTATIN 40 MG TAB PO SCH (21:47)
[2018-12-01] MEDS: MAGNESIUM OXIDE 400 MG TAB PO SCH (21:52)
[2018-12-01] MEDS: FUROSEMIDE 10 MG/ML 2 ML VIAL IV SCH (22:12)
--- NOTE | 2018-12-01 22:21 | XR ---
EXAMINATION: XR chest 2V DATE AND TIME: 12/01/2018 6:09 PM CLINICAL INDICATION: PHH; SOB TECHNIQUE: Departmental protocol COMPARISON: 08/12/2018 FINDINGS: EKG leads. The lungs are clear. The pleural spaces are negative. The moderately-enlarged cardiac silhouette is redemonstrated. The skeletal structures and soft tissues are negative for acute findings. IMPRESSION: NO DEFINITE ACUTE PROCESS.
[2018-12-01 22:55] LABS: Glucose,Whole Blood 201 mg/dL (75-99)
[2018-12-01] MEDS ORDERED: INSULIN ASPART (NovoLOG) 100 UNIT/ML VIAL SQ SCH (23:06)
[2018-12-01] MEDS: INSULIN ASPART (NovoLOG) 100 UNIT/ML VIAL SQ SCH (23:17)
[2018-12-02 06:58] LABS: Glucose,Whole Blood 101 mg/dL (75-99)
[2018-12-02] MEDS: INSULIN ASPART (NovoLOG) 100 UNIT/ML VIAL SQ SCH ×4 (07:06→22:13)
[2018-12-02] MEDS ORDERED: INSULIN ASPART (NovoLOG) 100 UNIT/ML VIAL SQ SCH (07:30)
[2018-12-02] MEDS: predniSONE 10 MG TAB PO SCH (07:54)
[2018-12-02] MEDS: ASPIRIN 81 MG PO SCH (07:54)
[2018-12-02] MEDS: GABAPENTIN 400 MG CAP PO SCH ×3 (07:54→22:13)
[2018-12-02] MEDS: CHOLECALCIFEROL 400 UNIT TAB PO SCH (07:54)
[2018-12-02] MEDS: REPAGLINIDE 1 MG TAB PO SCH ×2 (07:54→18:25)
[2018-12-02] MEDS: CARVEDILOL 12.5 MG TAB PO SCH ×2 (07:54→18:15)
[2018-12-02] MEDS: MULTIVITAMINS, THERA 1 EACH TAB PO SCH (07:54)
[2018-12-02] MEDS: FUROSEMIDE 10 MG/ML 2 ML VIAL IV SCH ×2 (07:55→22:13)
[2018-12-02] MEDS: MAGNESIUM OXIDE 400 MG TAB PO SCH ×2 (07:55→22:13)
--- NOTE | 2018-12-02 08:29 | HP ---
HISTORY AND PHYSICAL CHIEF COMPLAINT: A 78-year-old white female with acute diastolic CHF with shortness of breath with any exertion, severe leg edema and swelling and some altered mental status changes. She cannot feel anything in bilateral legs at this time. She has severe pain in her legs and neuropathy all the way from her lower calf bone down to her legs and severe swelling in her lower extremities. She is admitted for IV Lasix and for possible lumbar epidural and neurologic workup for possible altered mental status. MEDICATIONS: Please see list. SURGERY: See list. She is a diabetic, COPD, diastolic heart failure, dyslipidemia, 7 disk disease and neuropathy. PHYSICAL EXAMINATION: Temp 97.8, pulse is 50 to 54, blood pressure is 100/50s to 60s, she is 94% on room air. CARDIOVASCULAR: S1, S2. LUNGS: Show mild wheeze x4. NEUROLOGIC: She is giving appropriate answers. Alert and oriented x2. GI: Distended, obesity. HEMATOLOGIC: Shows 3+ pedal edema bilaterally. Pulses 1+ dorsalis pedis, posterior radial pulse. Positive straight leg raising test. ASSESSMENT: Lumbar neuritis, lymphedema type changes, suspect diastolic congestive heart failure. IV Lasix will be given. Epidural shot will be given in the lumbar spine. Lyrica will be discontinued for possible edema in the legs. Neurontin will be started PT, OT. Further orders. Possibly Cardiology consult for an echo and for bradycardia. MMODL / IJN: [id number] /
[2018-12-02] MEDS ORDERED: CLOPIDOGREL 75 MG TAB PO SCH (09:00)
--- NOTE | 2018-12-02 09:52 | US ---
EXAMINATION TYPE: US venous doppler duplex LE DATE OF EXAM: 12/02/2018 7:56 AM COMPARISON: NONE CLINICAL HISTORY: edema. Bilateral leg pain and edema SIDE PERFORMED: Bilateral TECHNIQUE: The lower extremity deep venous system is examined utilizing real time linear array sonog julia with graded compression, doppler sonography and color-flow sonography. VESSELS IMAGED: External Iliac Vein (EIV) Common Femoral Vein Deep Femoral Vein Greater Saphenous Vein * Femoral Vein Popliteal Vein Small Saphenous Vein * Proximal Calf Veins (* superficial vessels) There is normal flow, compressibility, vascular waveforms. Right Leg: Appears negative for DVT Left Leg: Appears negative for DVT IMPRESSION: No evident deep venous arthrosis at or above the knees.
--- NOTE | 2018-12-02 10:27 | CT ---
EXAMINATION TYPE: CT lumbar spine wo con DATE OF EXAM: 12/02/2018 COMPARISON: CT abdomen 03/08/2018 HISTORY: neuropathy CT DLP: 1348 mGycm Automated exposure control for dose reduction was used. An unenhanced CT of the lumbar spine was performed. Bone and soft tissue window settings are submitt ed as well as coronal and sagittal reconstructions. FINDINGS: Alignment is stable, patient had listhesis grade 1 L4-5. Loss of disc height at the intervertebral le vels present especially at L4-5 with associated multilevel spondylosis compatible degenerative disc d isease. There is calcification along the disc at L5-S1, L2-3, L1-2 as on prior. Lumbar vertebral bodi es show preserved height and bone mineralization. L1-L2: Posterior broad-based disc bulge causes mild anterior mass effect on the thecal sac. There is facet arthropathy change. No significant central stenosis or foraminal encroachment. L2-L3: Circumferential posterior disc bulge contacts anterior thecal sac. There is facet arthropathy change. No significant central stenosis or foraminal encroachment. L3-L4: Circumferential posterior disc bulge causes mild anterior mass effect on the thecal sac. Facet arthropathy with hypertrophy ligamentum flavum causes some posterior lateral mass effect on the thec al sac. There is moderate central stenosis. Circumferential extension endplate disc complex results i n some bilateral foraminal encroachment. L4-L5: Marked central stenosis is present due to patient's hypertrophic facet arthropathy change, the listhesis contributes to cause a trefoil appearance of the thecal sac, circumferential extension of disc and the listhesis contributes to bilateral foraminal encroachment. L5-S1: Posterior extension of endplate disc complex is present causing anterior mass effect on the th ecal sac somewhat eccentric towards the left, hypertrophic facet change encroaches somewhat on the la teral recesses, circumferential extension of endplate disc complex results in bilateral foraminal enc roachment. No significant central stenosis. IMPRESSION: Spinal stenosis greatest at L4-5 similar to prior exam. Marked facet arthropathy, degenerative disc d isease, multilevel foraminal encroachment, additional findings above.
--- NOTE | 2018-12-02 10:37 | P.CNNES ---
History of Present Illness Consult date: 12/02/18 Requesting physician: Tu Coon Reason for Consult: BLE numbness Chief complaint: Legs painful and numb History of Present Illness: This is a 78 RH female h/o peripheral neuropathy attributed to DM. Patient states that her BS had been under good control under 100 in general, but lately it has gone up to the 200s. Her pain is in the feet but shoots all the way up to the tailbones. Denies saddle anesthesia or bowel/bladder incontinence. She would like to be more physically active, but her pain limits her mobility. She walks with a cane. Her PCP noted significant BLE edema on Lyrica, so switched her to gabapentin instead. She has had CT L-spine and venous dopplers of the BLE, and neurology was asked to evaluate her BLE numbness. Review of Systems I have performed a 14-point organ ROS with patient; pertinents are as per HPI. Past Medical History Past Medical History: Diabetes Mellitus, Hyperlipidemia, Hypertension, Memory Impairment History of Any Multi-Drug Resistant Organisms: None Reported Past Surgical History: Hysterectomy, Tonsillectomy Additional Past Surgical History / Comment(s): right leg vein stripping Past Anesthesia/Blood Transfusion Reactions: No Reported Reaction Past Psychological History: No Psychological Hx Reported Smoking Status: Former smoker Past Alcohol Use History: None Reported Past Drug Use History: None Reported - Past Family History Father Family Medical History: No Reported History Mother Family Medical History: No Reported History Medications and Allergies Home Medications Medication Instructions Recorded Confirmed Type Aspirin 81 mg PO DAILY 11/29/13 12/01/18 History Furosemide [Lasix] 40 mg PO DAILY 11/29/13 12/01/18 History Simvastatin [Zocor] 80 mg PO HS 11/29/13 12/01/18 History Magnesium 200 mg PO BID 03/08/18 12/01/18 History Multivitamins, Thera [Multivitamin 1 tab PO DAILY 03/08/18 12/01/18 History (formulary)] Repaglinide 0.5 mg PO BID-W/MEALS 03/08/18 12/01/18 History predniSONE 10 mg PO DAILY 03/08/18 12/01/18 History Carvedilol [Coreg] 12.5 mg PO BID 08/12/18 12/01/18 History Clopidogrel [Plavix] 75 mg PO DAILY 08/12/18 12/01/18 History Cholecalciferol [Vitamin D3] 400 unit PO DAILY 12/01/18 12/01/18 History Furosemide [Lasix] 20 mg PO HS 12/01/18 12/01/18 History Allergies Allergy/AdvReac Type Severity Reaction Status Date / Time No Known Allergies Allergy Verified 12/01/18 19:35 Physical Examination - Vital Signs Vital Signs: Vital Signs Temp Pulse Resp BP Pulse Ox 12/02/18 07:00 97.7 F 52 L 16 131/65 91 L 12/02/18 01:42 98.0 F 50 L 18 118/63 94 L 12/01/18 21:20 97.8 F 54 L 14 104/54 92 L Intake and Output 12/01/18 12/02/18 12/02/18 22:59 06:59 14:59 Output Total 400 Balance -400 Output: Urine 400 Other: Voiding Method Toilet Toilet Weight 82.1 kg Gen NAD Pleasant and cooperative HEENT NCAT Sclera without icterus O/P clear Neck Supple No carotid bruit Cor RRR no m/r/g Lungs CTAB Abd Soft NTND +BS Ext Warm to touch No edema Neuro MS A+Ox4 Normal fluency Able to follow all commands CN PERRL VFF no APD EOMI no nystagmus or SANDRA No facial asymmetry Masseter's sy mmetric Hearing intact to normal voice bilaterally Speech not dysarthric Equal elevation of palate Tongue midline Sym shrug and SCM bilaterally Motor Normal bulk/tone No pronator or tremors Strength 5/5 sym throughout Sens Diminished to temp up to mid-tillman in BLE Coord No dysmetria on FTN bilaterally She has a sensory ataxia in the BLE on HTS DTRs 2+/4 sym in BUE 1+/4 in bilateral patella and 0/4 in bilateral achilles Toes downgoing bilaterally No clonus at achilles Gait Wide-based with cane Results - Laboratory Findings CBC and BMP: 12/01/18 17:57 12/01/18 17:57 Abnormal Lab Findings: Abnormal Labs 12/01/18 12/01/18 12/01/18 17:09 17:57 19:40 Potassium 3.4 L Carbon Dioxide 34 H BUN 36 H Creatinine 1.45 H Glucose 168 H POC Glucose (mg/dL) 184 H Ur Leukocyte Esterase Trace H Urine WBC 6 H Amorphous Sediment Rare H Urine Bacteria Occasional H 12/01/18 12/02/18 22:53 06:53 Potassium Carbon Dioxide BUN Creatinine Glucose POC Glucose (mg/dL) 201 H 101 H Ur Leukocyte Esterase Urine WBC Amorphous Sediment Urine Bacteria - Diagnostic Findings Additional findings: CT L-spine wo rafy 12/02/18. Spinal stenosis greatest at L4 to L5, stable. Mar ket facet arthropathy, degenerative disc disease, multilevel foraminal encroachment at L3-L4, L4-L5 and L5-S1. I have reviewed neuroimages myself. Assessment and Plan Assessment: BLE numbness and pain- she likely does have a peripheral neuropathy, but her BLE sensory symptoms may also be confounded by lumbar radiculopathies and stenosis. The most common etiology of PN is DM, will send additional PN labs as well Plan: -TSH normal. Send B12, TPPA, SPEP, EMELYN, RF -Discussed different neuropathic pain meds. PCP has switched her Lyrica to gabapentin, which can also cause leg swelling. TCAs are used but would need to be careful in the elderly. Oxcarbazepine is another option. Would recommend outpatient neuro follow-up. -Would recommend outpatient EMG/NCS to delineate PN and r/o lumbar radiculopathy, if not already done (patient does not recall) -d/w patient in detail. All questions answered. -No further inpatient neuro recs at this time. Will revisit patient prn. Please call with new ?. Thank you for this consultation. Time with Patient: Greater than 30 (Time spent in direct patient care, greater than 50% of which was spent in [id number] counseling and coordination of care: 70 minutes)
--- NOTE | 2018-12-02 10:40 | ECHOF ---
Referral Reason:diastolic chf MEASUREMENTS -------- HEIGHT: 157.5 cm WEIGHT: 82.1 kg BP: 118/63 RVIDd: 2.9 cm (< 3.3) IVSd: 1.5 cm (0.6 - 1.1) LVIDd: 4.5 cm (3.9 - 5.3) LVPWd: 1.2 cm (0.6 - 1.1) IVSs: 2.4 cm LVIDs: 2.9 cm LVPWs: 1.7 cm LAESV Index (A-L): 42.89 ml/m Ao Diam: 2.9 cm (2.0 - 3.7) AV Cusp: 2.1 cm (1.5 - 2.6) LA Diam: 3.9 cm (2.7 - 3.8) EPSS: 0.3 cm MV E Luis: 1.28 m/s MV DecT: 338 ms MV A Luis: 1.23 m/s MV E/A Ratio: 1.04 AR PHT: 575 ms RAP: 5.00 mmHg RVSP: 36.09 mmHg MV EF SLOPE: 84.56 mm/s (70 - 150) MV EXCURSION: 2.02 cm (> 18.000) FINDINGS -------- Sinus rhythm. This was a technically adequate study. The left ventricular size is normal. There is moderate concentric left ventricular hypertrophy. O verall left ventricular systolic function is normal with, an EF between 55 - 60 %. The right ventricle is normal in size. Left atrium is severely dilated by volume. The right atrial size is normal. Interatrial and interventricular septum intact. There is moderate aortic valve sclerosis. There is mild aortic regurgitation. Mild mitral annular calcification present. Mild mitral regurgitation is present. Mild tricuspid regurgitation present. There is mild pulmonary hypertension. The right ventricular systolic pressure, as measured by Doppler, is 36.09mmHg. There is no pulmonic regurgitation present. The aortic root size is normal. The inferior vena cava was not well visualized. There is no pericardial effusion. CONCLUSIONS -------- 1. Sinus rhythm. 2. The left ventricular size is normal. 3. There is moderate concentric left ventricular hypertrophy. 4. Overall left ventricular systolic function is normal with, an EF between 55 - 60 %. 5. 6. Left atrium is severely dilated by volume. 7. There is moderate aortic valve sclerosis. 8. There is mild aortic regurgitation. 9. Mild mitral annular calcification present. 10. Mild mitral regurgitation is present. 11. Mild tricuspid regurgitation present. 12. There is mild pulmonary hypertension. 13. There is no pulmonic regurgitation present. 14. The aortic root size is normal. 15. The inferior vena cava was not well visualized. 16. There is no pericardial effusion. RN BIRTHING: Bibi De RDCS
--- NOTE | 2018-12-02 11:16 | P.CRDCN ---
History of Present Illness History of present illness: This is a pleasant 78-year-old female past medical history significant for hypertension, dyslipidemia, diabetes mellitus, CVA and former nicotine dependence. She denies history of coronary artery disease and does not follow with a bleach maker for any reason. We have been asked to see her in consultation secondary to lower extremity edema and bradycardia. The patient presented to the hospital with symptoms of bilateral lower extremity discomfort that has been ongoing for the previous 3 months. She states the pain radiates from her buttocks and lower back down both legs. Approximately one week ago she noticed lower extremity edema. She denies symptoms of shortness of breath, exertional dyspnea, chest pain, palpitations or dizziness. EKG obtained on admission revealed sinus bradycardia heart rate of 49, repeat today again showed sinus bradycardia heart rate in the 50s. Chest x-ray is negative for an acute cardiopulmonary process. Lower extremity Doppler is negative for DVT. Echocardiogram reveals preserved LV systolic function with ejection fraction 55-60%, mild mitral regurgitation, moderate aortic sclerosis, mild aortic regurgitation, mild tricuspid regurgitation and mild pulmonary hypertension with an RVSP of [address] reveals spinal stenosis at L4 and L5, market facet atrophy, degenerative disc disease, multilevel foraminal encroac hment. Laboratory data reviewed, CBC unremarkable, sodium 143, potassium 3.4, creatinine 1.45 with a GFR 35, cardiac enzymes negative 1, proBNP 685 and TSH 0.531. Current cardiac medications include aspirin 81 mg daily, Plavix 75 mg daily secondary to CVA, carvedilol 12.5 mg twice a day, Lasix 40 mg in the morning and 20 mg at bedtime and simvastatin 80 mg daily. At the time of my exam: CONSTITUTIONAL: Denies fever. Denies chills. EYES: Denies blurred vision. Denies vision changes. Denies eye pain. EARS, NOSE, MOUTH & THROAT: Denies headache. Denies sore throat. Denies ear pain. CARDIOVASCULAR: Denies chest pain. Denies shortness of breath. Denies orthopnea. Denies PND. Denies palpitations. RESPIRATORY: Denies cough. GASTROINTESTINAL: Denies abdominal pain. Denies diarrhea. Denies constipation. Denies nausea. Denies vomiting. MUSCULOSKELETAL: Complains of bilateral lower extremity pain radiating from the buttock and lower back. INTEGUMENTARY: Denies pruitis. Denies rash. NEUROLOGIC: Denies numbness. Denies tingling. Denies weakness. PSYCHIATRIC: Denies anxiety. Denies depression. ENDOCRINE: Denies fatigue. Denies weight change. Denies polydipsia. Denies polyurina. GENITOURINARY: Denies burning, hematuria or urgency with micturation. HEMATOLOGIC: Denies history of anemia. Denies bleeding. Blood pressure 131/65 heart rate 52 afebrile maintaining oxygen saturation on room air GENERAL: This is a 78-year-old occasion female in no apparent distress at the time of my examination. HEENT: Head is atraumatic, normocephalic. Pupils are equal, round. Sclerae anicteric. Conjunctivae are clear. Mucous membranes of the mouth are moist. Neck is supple. There is no jugular venous distention. No carotid bruit is heard. LUNGS: Clear to auscultation no wheezes, rales or rhonchi. No chest wall tenderness is noted on palpation or with deep breathing. HEART: Regular rate and rhythm with systolic ejection murmur at the left sternal border, no rubs or gallops. S1 and S2 heard. ABDOMEN: Soft, nontender. Bowel sounds are heard. No organomegaly noted. EXTREMITIES: Trace bilateral lower extremity nonpitting edema and no calf tenderness noted. VASCULAR: Radial and dorsalis pedis pulses palpated, no evidence of clubbing. NEUROLOGIC: Patient is awake, alert and oriented x3. ASSESSMENT Bilateral lower extremity pain radiating from the lower back suggestive of possible radiculopathy Sinus bradycardia, asymptomatic Hypertension Dyslipidemia Diabetes mellitus History of CVA Former nicotine dependence, quit 6 years ago PLAN Clinically the patient is euvolemic with no evidence to suggest heart failure, systolic or diastolic. Lower extremity edema of unclear etiology however not related to heart failure. Likely secondary to becoming more sedentary recently due to the lower extremity pain. Recommend HARRY linares. Discontinuation of Plavix considering her CVA was/years ago. Related to bradycardia this is a sinus bradycardia that is asymptomatic. The patient is currently on beta balwinder secondary to hypertension and if she does become symptomatic they should be weaned appropriately. Ongoing medical management and evaluation per neurology service and primary care team. We will continue to follow as needed. Thank you kindly for this consultation. Nurse Practitioner note has been reviewed, I agree with a documented findings and plan of care. Patient was seen and examined. Past Medical History Past Medical History: Diabetes Mellitus, Hyperlipidemia, Hypertension, Memory Impairment History of Any Multi-Drug Resistant Organisms: None Reported Past Surgical History: Hysterectomy, Tonsillectomy Additional Past Surgical History / Comment(s): right leg vein stripping Past Anesthesia/Blood Transfusion Reactions: No Reported Reaction Past Psychological History: No Psychological Hx Reported Smoking Status: Former smoker Past Alcohol Use History: None Reported Past Drug Use History: None Reported - Past Family History Father Family Medical History: No Reported History Mother Family Medical History: No Reported History Medications and Allergies Home Medications Medication Instructions Recorded Confirmed Type Aspirin 81 mg PO DAILY 11/29/13 12/01/18 History Furosemide [Lasix] 40 mg PO DAILY 11/29/13 12/01/18 History Simvastatin [Zocor] 80 mg PO HS 11/29/13 12/01/18 History Magnesium 200 mg PO BID 03/08/18 12/01/18 History Multivitamins, Thera [Multivitamin 1 tab PO DAILY 03/08/18 12/01/18 History (formulary)] Repaglinide 0.5 mg PO BID-W/MEALS 03/08/18 12/01/18 History predniSONE 10 mg PO DAILY 03/08/18 12/01/18 History Carvedilol [Coreg] 12.5 mg PO BID 08/12/18 12/01/18 History Clopidogrel [Plavix] 75 mg PO DAILY 08/12/18 12/01/18 History Cholecalciferol [Vitamin D3] 400 unit PO DAILY 12/01/18 12/01/18 History Furosemide [Lasix] 20 mg PO HS 12/01/18 12/01/18 History Allergies Allergy/AdvReac Type Severity Reaction Status Date / Time No Known Allergies Allergy Verified 12/01/18 19:35 Physical Exam Vitals: Vital Signs Temp Pulse Resp BP Pulse Ox 12/02/18 07:00 97.7 F 52 L 16 131/65 91 L 12/02/18 01:42 98.0 F 50 L 18 118/63 94 L 12/01/18 21:20 97.8 F 54 L 14 104/54 92 L Intake and Output 12/01/18 12/02/18 12/02/18 22:59 06:59 14:59 Output Total 400 Balance -400 Output: Urine 400 Other: Voiding Method Toilet Toilet Weight 82.1 kg Results 12/01/18 17:57 12/01/18 17:57 Cardiac Enzymes 12/01/18 Range/Units 17:57 Troponin I <0.012 (0.000-0.034) ng/mL CBC 12/01/18 Range/Units 17:57 WBC 8.8 (3.8-10.6) k/uL RBC 3.87 (3.80-5.40) m/uL Hgb 11.9 (11.4-16.0) gm/dL Hct 36.1 (34.0-46.0) % Plt Count 193 (150-450) k/uL Comprehensive Metabolic Panel 12/01/18 Range/Units 17:57 Sodium 143 (137-145) mmol/L Potassium 3.4 L (3.5-5.1) mmol/L Chloride 102 (98-107) mmol/L Carbon Dioxide 34 H (22-30) mmol/L BUN 36 H (7-17) mg/dL Creatinine 1.45 H (0.52-1.04) mg/dL Glucose 168 H (74-99) mg/dL Calcium 9.1 (8.4-10.2) mg/dL Current Medications Generic Name Dose Route Start Last Admin Trade Name Freq PRN Reason Stop Dose Admin Aspirin 81 mg 12/02/18 09:00 12/02/18 07:54 Aspirin PO 81 mg DAILY JENNY Administration Atorvastatin Calcium 40 mg 12/01/18 21:30 12/01/18 21:47 Lipitor PO 40 mg HS JENNY Administration Carvedilol 12.5 mg 12/02/18 07:30 12/02/18 07:54 Coreg PO 12.5 mg BID-W/MEALS JENNY Administration Cholecalciferol 400 unit 12/02/18 09:00 12/02/18 07:54 Vitamin D3 PO 400 unit DAILY JENNY Administration Clopidogrel Bisulfate 75 mg 12/02/18 09:00 12/02/18 07:54 Plavix PO 75 mg DAILY JENNY Administration Furosemide 20 mg 12/01/18 21:00 12/02/18 07:55 Lasix IV 20 mg Q12HR JENNY Administration Gabapentin 800 mg 12/01/18 22:00 12/02/18 07:54 Neurontin PO 800 mg TID JENNY Administration Insulin Aspart 0 unit 12/01/18 23:15 12/02/18 07:06 Novolog SQ Not Given ACHS JENNY Protocol Magnesium Oxide 200 mg 12/01/18 21:30 12/02/18 07:55 Mag-Ox PO 200 mg BID JENNY Administration Multivitamins 1 each 12/02/18 09:00 12/02/18 07:54 Theragran PO 1 each DAILY JENNY Administration Prednisone 10 mg 12/02/18 09:00 12/02/18 07:54 PO 10 mg DAILY EJNNY Administration Repaglinide 0.5 mg 12/02/18 07:30 12/02/18 07:54 Prandin PO 0.5 mg BID-W/MEALS JENNY Administration Intake and Output 12/01/18 12/02/18 12/02/18 22:59 06:59 14:59 Output Total 400 Balance -400 Output: Urine 400 Other: Voiding Method Toilet Toilet Weight 82.1 kg 12/01/18 17:57 12/01/18 17:57
[2018-12-02 11:54] LABS: Glucose,Whole Blood 249 mg/dL (75-99)
--- NOTE | 2018-12-02 15:00 | P.PAINCN ---
History of Present Illness - Reason for Consult Consult date: 12/02/18 Requesting physician: Tu Coon - Chief Complaint Bilateral lower extremity pain - History of Present Illness This is a 78-year-old patient referred by Dr. Coon for chronic pain in lower back radiating to bilateral lower extremities. She states that her pain began 3 months ago, after a fall. She reports pain from her tailbone to bilateral lower extremities, in a non-radicular fashion. She does endorse bilateral stocking- like lower extremity numbness. She endorses subjective weakness in bilateral lower extremities as well. Patient has been taking medications from primary care physician including Lyrica and was recently switched to gabapentin. She was admitted to the hospital for memory loss/altered mental status. Of note she is on Plavix for history of stroke, last dose was yesterday, 12/01/2018. Pain management was consulted to see if it was possible to do a lumbar epidural steroid injection. In addition to above, 13-point review of systems is also negative for chest pain, shortness of breath, changes in vision, changes in hearing, new onset weakness, abdominal pain, diarrhea, extreme fatigue, malaise, fever, skin ch anges, homicidal or suicidal ideation, or bowel or bladder incontinence. Past Medical History Past Medical History: Diabetes Mellitus, Hyperlipidemia, Hypertension, Memory Impairment History of Any Multi-Drug Resistant Organisms: None Reported Past Surgical History: Hysterectomy, Tonsillectomy Additional Past Surgical History / Comment(s): right leg vein stripping Past Anesthesia/Blood Transfusion Reactions: No Reported Reaction Past Psychological History: No Psychological Hx Reported Smoking Status: Former smoker Past Alcohol Use History: None Reported Past Drug Use History: None Reported - Past Family History Father Family Medical History: No Reported History Mother Family Medical History: No Reported History Medications and Allergies Home Medications Medication Instructions Recorded Confirmed Type Aspirin 81 mg PO DAILY 11/29/13 12/01/18 History Furosemide [Lasix] 40 mg PO DAILY 11/29/13 12/01/18 History Simvastatin [Zocor] 80 mg PO HS 11/29/13 12/01/18 History Magnesium 200 mg PO BID 03/08/18 12/01/18 History Multivitamins, Thera [Multivitamin 1 tab PO DAILY 03/08/18 12/01/18 History (formulary)] Repaglinide 0.5 mg PO BID-W/MEALS 03/08/18 12/01/18 History predniSONE 10 mg PO DAILY 03/08/18 12/01/18 History Carvedilol [Coreg] 12.5 mg PO BID 08/12/18 12/01/18 History Clopidogrel [Plavix] 75 mg PO DAILY 08/12/18 12/01/18 History Cholecalciferol [Vitamin D3] 400 unit PO DAILY 12/01/18 12/01/18 History Furosemide [Lasix] 20 mg PO HS 12/01/18 12/01/18 History Allergies Allergy/AdvReac Type Severity Reaction Status Date / Time No Known Allergies Allergy Verified 12/01/18 19:35 Physical Exam Vitals: Vital Signs Temp Pulse Resp BP Pulse Ox 12/02/18 07:00 97.7 F 52 L 16 131/65 91 L 12/02/18 01:42 98.0 F 50 L 18 118/63 94 L 12/01/18 21:20 97.8 F 54 L 14 104/54 92 L Intake and Output 12/01/18 12/02/18 12/02/18 22:59 06:59 14:59 Output Total 400 Balance -400 Output: Urine 400 Other: Voiding Method Toilet Toilet Weight 82.1 kg Physical exam: Vital Signs: Reviewed in EMR GENERAL: Well appearing, in no acute distress PSYCH: Mood and affect is appropriate. Awake, alert, and oriented SKIN: Skin color, texture, turgor normal, no rashes or lesions HEENT: Normocephalic, atraumatic. EOM intact CV: 1+ bilateral pedal edema RESP: Respirations are unlabored, no audible wheezing GI: Abdomen non-distended MUSCULOSKELETAL: Bilateral lower extremity strength is grossly 4 out of 5 symmetric. No atrophy or tone abnormalities are noted. Lumbar spine: Straight leg raising in the sitting position is negative for radicular pain. Tenderness to palpation over the lumbar spine and paraspinous muscles bilaterally. Extremities: Peripheral joint ROM is full and pain free without obvious instability or laxity in all four extremities. No edema or skin discolorations n oted. NEUR: Bilateral lower extremity coordination and muscle stretch reflexes are physiologic and symmetric. Negative clonus. Reduced sensation in bilateral lower extremities noted in a stocking distribution. Cranial nerves are grossly intact. Results Results: MRI lumbar spine done at [facility] on 12/02/2018 shows spinal stenosis greatest at L4-5 with multilevel degenerative disc disease, foraminal encroach ment. CBC & Chem 7: 12/01/18 17:57 12/01/18 17:57 Labs: Abnormal Lab Results - Last 24 Hours (Table) 12/01/18 12/01/18 12/01/18 Range/Units 17:09 17:57 19:40 Potassium 3.4 L (3.5-5.1) mmol/L Carbon Dioxide 34 H (22-30) mmol/L BUN 36 H (7-17) mg/dL Creatinine 1.45 H (0.52-1.04) mg/dL Glucose 168 H (74-99) mg/dL POC Glucose (mg/dL) 184 H (75-99) mg/dL Ur Leukocyte Esterase Trace H (Negative) Urine WBC 6 H (0-5) /hpf Amorphous Sediment Rare H (None) /hpf Urine Bacteria Occasional H (None) /hpf 12/01/18 12/02/18 Range/Units 22:53 06:53 Potassium (3.5-5.1) mmol/L Carbon Dioxide (22-30) mmol/L BUN (7-17) mg/dL Creatinine (0.52-1.04) mg/dL Glucose (74-99) mg/dL POC Glucose (mg/dL) 201 H 101 H (75-99) mg/dL Ur Leukocyte Esterase (Negative) Urine WBC (0-5) /hpf Amorphous Sediment (None) /hpf Urine Bacteria (None) /hpf Microbiology - Last 24 Hours (Table) 12/01/18 19:40 Urine Culture - Preliminary Urine,Voided Assessment and Plan Plan: Assessment: 1. Lumbar radiculopathy 2. Lumbar spondylosis 3. Lumbar degenerative disc disease Plan: 1. Procedures: Unfortunately, patient is not a candidate for lumbar epidural steroid injection at this time as she is on Plavix, last dose yesterday. In the future, if patient can be off Plavix for 5-7 days, she would likely benefit from a lumbar epidural steroid injection. Encouraged patient to discuss referral to [facility] pain clinic with the primary care physician. We can see her as outpatient. 2. Investigations: MRI lumbar spine reviewed 3. Medications: Per primary team 8. Disposition: At pain clinic following discharge to discuss possible procedures PQRS Measure Charge Sheet PQRS Narrative: Smoking Status Former smoker Do You Want the Pneumonia Vaccine Up to Date Vaccine AT THIS TIME? Blood Pressure [Left Arm] 131/65 Pain Intensity [Bilateral Leg] 5 Scale Used Numeric (1 - 10) Home Medications: Ambulatory Orders Aspirin 81 mg PO DAILY 11/29/13 Furosemide [Lasix] 40 mg PO DAILY 11/29/13 Simvastatin [Zocor] 80 mg PO HS 11/29/13 Magnesium 200 mg PO BID 03/08/18 Multivitamins, Thera [Multivitamin (formulary)] 1 tab PO DAILY 03/08/18 Repaglinide 0.5 mg PO BID-W/MEALS 03/08/18 predniSONE 10 mg PO DAILY 03/08/18 Carvedilol [Coreg] 12.5 mg PO BID 08/12/18 Clopidogrel [Plavix] 75 mg PO DAILY 08/12/18 Cholecalciferol [Vitamin D3] 400 unit PO DAILY 12/01/18 Furosemide [Lasix] 20 mg PO HS 12/01/18
[2018-12-02 16:56] LABS: Glucose,Whole Blood 289 mg/dL (75-99)
[2018-12-02 19:57] LABS: Glucose,Whole Blood 297 mg/dL (75-99)
[2018-12-02] MEDS ORDERED: INSULIN DETEMIR (LEVEMIR) 100 UNIT/ML SYR SQ ONE (20:30)
[2018-12-02 22:08] LABS: Glucose,Whole Blood 210 mg/dL (75-99)
[2018-12-02] MEDS: ATORVASTATIN 40 MG TAB PO SCH (22:13)
[2018-12-02 23:28] LABS: Rheumatoid Factor 5 IU/mL (0-15)
[2018-12-03 06:49] LABS: Glucose,Whole Blood 90 mg/dL (75-99)
[2018-12-03 08:22] VITALS: RESP 15
[2018-12-03] MEDS: CARVEDILOL 12.5 MG TAB PO SCH (09:03)
[2018-12-03] MEDS: INSULIN ASPART (NovoLOG) 100 UNIT/ML VIAL SQ SCH ×2 (09:03→12:24)
[2018-12-03] MEDS: REPAGLINIDE 1 MG TAB PO SCH (09:03)
[2018-12-03] MEDS: predniSONE 10 MG TAB PO SCH (09:04)
[2018-12-03] MEDS: MULTIVITAMINS, THERA 1 EACH TAB PO SCH (09:04)
[2018-12-03] MEDS: MAGNESIUM OXIDE 400 MG TAB PO SCH (09:04)
[2018-12-03] MEDS: FUROSEMIDE 10 MG/ML 2 ML VIAL IV SCH (09:04)
[2018-12-03] MEDS: ASPIRIN 81 MG PO SCH (09:04)
[2018-12-03] MEDS: CHOLECALCIFEROL 400 UNIT TAB PO SCH (09:04)
[2018-12-03] MEDS: GABAPENTIN 400 MG CAP PO SCH (09:04)
[2018-12-03 10:51] LABS: Protein, Total 5.8 g/dL (6.2-8.2)
[2018-12-03 11:48] LABS: Glucose,Whole Blood 122 mg/dL (75-99)
[2018-12-03 12:45] LABS: Gamma Globulin 0.56 g/dL (0.70-1.50)
[2018-12-03 14:47] VITALS: BP 136/81; PULSE 80; TEMP 97.6
[2018-12-03 17:10] LABS: Hemoglobin A1C 7.7 % (4.0-6.0)
--- NOTE | 2018-12-03 20:35 | P.DS ---
Providers Date of admission: 12/01/18 16:14 Expected date of discharge: 12/03/18 Attending physician: Tu Coon Consults: 12/02/18 07:48 Consult Physician Routine Consulting Provider: Vadim Beltran Consult Reason/Comments: lumbar epidural Do you want consulting provider notified?: Yes 12/02/18 07:56 Consult Physician Routine Consulting Provider: Myles Miller Consult Reason/Comments: diastolic chf/bradycardia Do you want consulting provider notified?: Yes 12/02/18 07:58 Consult Physician Routine Consulting Provider: Xavier Burkett Consult Reason/Comments: leg numbness Do you want consulting provider notified?: Yes Primary care physician: [facility] Course: Final Diagnoses: -Lower extremity edema-etiology unclear .Acute diastolic CHF ruled out as per cardiology, possibly medication induced, sedentary lifestyle. Lyrica switched to gabapentin. CT spine reporting stable stenosis greatest at L4 to L5, market facet arthropathy, degenerative disc disease, multilevel foraminal encroachment at L3-L4, L4-L5 and L5-S1. and venous Dopplers of the bilateral lower extremities reported negative for DVTs. -Peripheral neuropathy, lumbar radiculopathy, lumbar spondylosis, lumbar degenerative disc disease -Sinus bradycardia, asymptomatic -Acute metabolic encephalopathy, multifactorial, secondary to the above, resolved. Sensorium improved -History of nicotine dependence -Diabetes mellitus, uncontrolled, hyperglycemic, now controlled -Hypertension -Hyperlipidemia -History of CVA years ago, Plavix discontinued as per cardiology. -Gait dysfunction, uses a cane -Pulmonary hypertension -Moderate aortic valve sclerosis This is a 78-year-old female admitted with acute diastolic CHF, and multiple other medical issues. Lyrica discontinued, Neurontin initiated secondary to leg edema. Diuresed well on Lasix IV push. Echo reported normal LV function, EF 55-60%, moderate concentric left ventricular hypertrophy, severely dilated LA , moderate aortic cell sclerosis, mild pulmonary hypertension .Evaluated by pain management services, patient is not a candidate for epidural injection at this time secondary to being on anticoagulation. Evaluated by both cardiology and neurology. Neurology workup completed with outpatient EMG/NCS recommended. Significant clinical improvement. Cleared by all consults for discharge. Patient is being discharged home in a stable condition with guarded prognosis. EXAM: GENERAL: Alert and oriented 3, no acute distress CARDIOVASCULAR: S1, S2 regular. Positive systolic murmur. RESPIRATION: Breath sounds diminished in the bases. No rhonchi or crackles. No bronchial breathing. ABDOMEN: Soft, nontender . No guarding. no masses palpable. Bowel sounds heard. NERVOUS SYSTEM: No focal deficits. The impression and plan of care has been dictated as directed. : I performed a history and examination of this patient, discussed the same with the dictator. I agree with the dictator's note ,documented as a scribe. Any additional findings or plans will be noted. Patient Condition at Discharge: Stable Plan - Discharge Summary Discharge Rx Participant: Yes New Discharge Prescriptions: New Gabapentin [Neurontin] 800 mg PO TID #18 cap Continue Furosemide [Lasix] 40 mg PO DAILY Simvastatin [Zocor] 80 mg PO HS Aspirin 81 mg PO DAILY Multivitamins, Thera [Multivitamin (formulary)] 1 tab PO DAILY Repaglinide 0.5 mg PO BID-W/MEALS Magnesium 200 mg PO BID predniSONE 10 mg PO DAILY Carvedilol [Coreg] 12.5 mg PO BID Cholecalciferol [Vitamin D3] 400 unit PO DAILY Furosemide [Lasix] 20 mg PO HS Discharge Medication List Aspirin 81 mg PO DAILY 11/29/13 [History] Furosemide [Lasix] 40 mg PO DAILY 11/29/13 [History] Simvastatin [Zocor] 80 mg PO HS 11/29/13 [History] Magnesium 200 mg PO BID 03/08/18 [History] Multivitamins, Thera [Multivitamin (formulary)] 1 tab PO DAILY 03/08/18 [History] Repaglinide 0.5 mg PO BID-W/MEALS 03/08/18 [History] predniSONE 10 mg PO DAILY 03/08/18 [History] Carvedilol [Coreg] 12.5 mg PO BID 08/12/18 [History] Cholecalciferol [Vitamin D3] 400 unit PO DAILY 12/01/18 [History] Furosemide [Lasix] 20 mg PO HS 12/01/18 [History] Gabapentin [Neurontin] 800 mg PO TID #18 cap 12/03/18 [Rx] Follow up Appointment(s)/Referral(s): [facility], [NON-STAFF] - 1-2 Days Jazmyn Lerma MD [STAFF PHYSICIAN] - 12/17/18 8:45 am Dustin Stroud MD [STAFF PHYSICIAN] - 1 Week Tu Coon MD [Primary Care Provider] - 12/08/18 1:00 pm Nel Cesar MD [STAFF PHYSICIAN] - 1 Week (Pain clinic outpatient to discuss options) Activity/Diet/Wound Care/Special Instructions: Confirm cardiology follow-up appointment prior to discharge. Your insurance required you to go through [facility] for your blood sugar testing supplies, including the glucometer, they can be reached at Discharge Disposition: HOME SELF-CARE
== END 2018-12-03 16:44 | disposition home or self-care (01) | DRG 947 ==
LOC: 4SSUR 16:14
PROVIDERS: ADMIT Family Medicine; ATTEND Family Medicine
DX: R60.0 Localized edema (principal); G93.41 Metabolic encephalopathy; I50.30 Unspecified diastolic (congestive) heart failure; T42.6X5A Adverse effect of other antiepileptic and sedative-hypnotic drugs, initial encounter; E11.42 Type 2 diabetes mellitus with diabetic polyneuropathy; E11.65 Type 2 diabetes mellitus with hyperglycemia; E78.5 Hyperlipidemia, unspecified; I11.0 Hypertensive heart disease with heart failure; I27.20 Pulmonary hypertension, unspecified; Z86.73 Personal history of transient ischemic attack (TIA), and cerebral infarction without residual deficits; I10 Essential (primary) hypertension; I08.3 Combined rheumatic disorders of mitral, aortic and tricuspid valves; I89.0 Lymphedema, not elsewhere classified; M47.26 Other spondylosis with radiculopathy, lumbar region; M48.061 Spinal stenosis, lumbar region without neurogenic claudication; M51.16 Intervertebral disc disorders with radiculopathy, lumbar region; Z79.02 Long term (current) use of antithrombotics/antiplatelets; Z79.82 Long term (current) use of aspirin; Z79.899 Other long term (current) drug therapy; Z87.891 Personal history of nicotine dependence; Z90.710 Acquired absence of both cervix and uterus; Z72.3 Lack of physical exercise; R26.9 Unspecified abnormalities of gait and mobility
CPT/HCPCS: 71046; 72131; 80048; 81001; 82607; 83036; 83880; 84165; 84443; 84484; 85025; 86038; 86431; 86780; 87077; 87086; 87186; 93005; 93306; 93970

== ENCOUNTER → 2019-05-11 | Outpatient (CLI) | payer MEDICARE ==
[2019-05-11 17:31] LABS: HCT 38.8 % (34.0-46.0); HGB 12.6 gm/dL (11.4-16.0); MCH 30.2 pg (25.0-35.0); MCHC 32.5 g/dL (31.0-37.0); Mean Platelet Volume 8.7; Platelet Count 212 k/uL (150-450); RBC 4.17 m/uL (3.80-5.40); RDW 12.6 % (11.5-15.5); WBC 10.6 k/uL (3.8-10.6)
[2019-05-11 23:20] LABS: African American GFR (CKD) 35.4 (60.0-200.0); Albumin 4.3 g/dL (3.80-4.90); Albumin/Globulin Ratio 2.26 (1.60-3.17); Anion Gap 11.2 mmol/L (4.00-12.00); BUN/Creat Ratio 24.38 Ratio (12.00-20.00); Calcium 9.4 mg/dL (8.7-10.3); Carbon Dioxide 32.8 mmol/L (21.6-31.8); Globulin 1.9 g/dL (1.6-3.3); Non-African American GFR(CKD) 30.5 (60.0-200.0); Potassium 4.2 mmol/L (3.5-5.5); Total Bilirubin 0.3 mg/dL (0.3-1.2); Total Protein 6.2 g/dL (6.2-8.2)
[2019-05-12 02:00] LABS: Hemoglobin A1C 9.6 % (4.0-6.0)
== END | disposition home or self-care (01) ==
LOC: LABWHC1 16:38
PROVIDERS: ATTEND Family Medicine
DX: I25.10 Atherosclerotic heart disease of native coronary artery without angina pectoris (principal)
CPT/HCPCS: 36415; 80053; 83036; 83880; 84443; 85027

== ENCOUNTER 2019-09-02 19:42 | Inpatient (IN) | payer MEDICARE ==
--- NOTE | 2019-09-02 20:38 | ED ---
General Adult HPI - General Source: patient, family, RN notes reviewed Mode of arrival: ambulatory Limitations: no limitations <Luis Miguel Ansari - Last Filed: 09/02/19 21:01> <Rick Marrero - Last Filed: 09/06/19 15:20> - General Chief complaint: Extremity Problem,Nontraumatic Stated complaint: Leg Pain Time Seen by Provider: 09/02/19 20:02 - History of Present Illness Initial comments: 79-year-old female with a past medical history of hyperlipidemia, hypertension, diabetes mellitus presents to the emergency department for left hip pain. Patient states that she has had left hip pain for the past year. Patient states it radiates down to the left foot at times. States movement seems to worsen this pain. States she has seen her doctor for this and had an injection in her back but it did not seem to help. She denies any numbness or tingling of the left leg. Does state both her feet sometimes feel prickly but this has been an ongoing issue for quite some time. Denies any weakness of the lower extrem ities.Patient has no other complaints at this time including shortness of breath, chest pain, abdominal pain, nausea or vomiting, headache, or visual changes. (Luis Miguel Ansari) - Related Data Home Medications Medication Instructions Recorded Confirmed Simvastatin [Zocor] 80 mg PO HS 11/29/13 09/02/19 predniSONE 10 mg PO DAILY 03/08/18 09/02/19 Carvedilol [Coreg] 12.5 mg PO BID 08/12/18 09/02/19 Cholecalciferol [Vitamin D3] 400 unit PO DAILY 12/01/18 09/02/19 Furosemide [Lasix] 40 mg PO BID 12/01/18 09/02/19 Dulaglutide [Trulicity] 1.5 mg SQ TH 09/02/19 09/02/19 Gabapentin [Neurontin] 400 mg PO TID 09/02/19 09/02/19 Pioglitazone [Actos] 15 mg PO DAILY 09/02/19 09/02/19 Repaglinide [Prandin] 1 mg PO AC-TID 09/02/19 09/02/19 Allergies Allergy/AdvReac Type Severity Reaction Status Date / Time No Known Allergies Allergy Verified 09/02/19 22:33 Review of Systems ROS Other: All systems not noted in ROS Statement are negative. <CotyLuis Miguel noel Jacob - Last Filed: 09/02/19 21:01> ROS Other: All systems not noted in ROS Statement are negative. <Rick Marrero - Last Filed: 09/06/19 15:20> ROS Statement: Those systems with pertinent positive or pertinent negative responses have been documented in the HPI. Past Medical History Past Medical History: Diabetes Mellitus, Hyperlipidemia, Hypertension, Memory Impairment, Pneumonia History of Any Multi-Drug Resistant Organisms: None Reported Past Surgical History: Hysterectomy, Tonsillectomy Additional Past Surgical History / Comment(s): right leg vein stripping Past Anesthesia/Blood Transfusion Reactions: No Reported Reaction Past Psychological History: No Psychological Hx Reported Smoking Status: Former smoker Past Alcohol Use History: None Reported Past Drug Use History: None Reported - Past Family History Father Family Medical History: No Reported History Mother Family Medical History: No Reported History <CotyLuis Miguel P - Last Filed: 09/02/19 21:01> General Exam Limitations: no limitations General appearance: alert, in no apparent distress Head exam: Present: atraumatic, normocephalic, normal inspection Eye exam: Present: normal appearance, PERRL, EOMI. Absent: scleral icterus, conjunctival injection, periorbital swelling ENT exam: Present: normal exam, mucous membranes moist Neck exam: Present: normal inspection, full ROM. Absent: tenderness, meningismus, lymphadenopathy Respiratory exam: Present: normal lung sounds bilaterally. Absent: respiratory distress, wheezes, rales, rhonchi, stridor Cardiovascular Exam: Present: regular rate, normal rhythm, normal heart sounds. Absent: systolic murmur, diastolic murmur, rubs, gallop, clicks GI/Abdominal exam: Present: soft, normal bowel sounds. Absent: distended, tenderness, guarding, rebound, rigid Extremities exam: Present: normal capillary refill (Capillary refill less than 2 seconds in the left lower extremity and equal in the right lower extremity. DP and PT signals evident on Doppler.), other (skin exam is normal in the left lower extremity). Absent: full ROM (Patient has left hip flexion to 90 but has pain with flexion past this. Patient has pain with external rotation of the left hip as well.), tenderness (No tenderness of the left leg.), pedal edema, joint swelling, calf tenderness (no calf tenderness noted. Negative Homans sign.) <Luis Miguel Ansari - Last Filed: 09/02/19 21:01> Course <Rick Marrero - Last Filed: 09/06/19 15:20> Vital Signs 09/02/19 09/02/19 09/02/19 19:56 21:08 22:52 Temperature 98.3 F 98.9 F Pulse Rate 91 72 71 Pulse Rate [ Right] Respiratory 18 17 18 Rate Blood Pressure 165/71 147/72 147/61 Blood Pressure [Left Arm] O2 Sat by Pulse 97 95 96 Oximetry 09/03/19 09/03/19 09/03/19 01:44 05:17 08:00 Temperature 97.1 F L 97.7 F Pulse Rate 69 69 Pulse Rate [ 72 Right] Respiratory 19 15 12 Rate Blood Pressure 141/82 147/73 Blood Pressure 131/64 [Left Arm] O2 Sat by Pulse 98 98 Oximetry 09/03/19 09/03/19 09/03/19 12:00 14:32 14:40 Temperature 97.8 F 98 F Pulse Rate Pulse Rate [ 68 77 Right] Respiratory 12 10 L 12 Rate Blood Pressure Blood Pressure 128/68 133/72 [Left Arm] O2 Sat by Pulse 96 96 Oximetry 09/03/19 14:43 Temperature Pulse Rate Pulse Rate [ 72 Right] Respiratory 14 Rate Blood Pressure Blood Pressure 134/55 [Left Arm] O2 Sat by Pulse 90 L Oximetry - Reevaluation(s) Reevaluation #1: 09/02/19 22:21 PA supervision: I did proceed evaluate this case patient presented with complaints of leg pain specifically in the left going on for some time. This seems be getting worse no improvement is become difficult to ambulate. The presentation is consistent with sciatica. Case was discussed with Dr. Coon patient will be admitted with pain control/pain management from anesthesia. (Rick Marrero) Medical Decision Making <Luis Miguel Ansari - Last Filed: 09/02/19 21:01> - Lab Data Result diagrams: 09/04/19 05:59 09/04/19 05:59 <Rick Marrero - Last Filed: 09/06/19 15:20> - Medical Decision Making HPI physical exam is documented. Neurovascular status intact in the left lower extremity. X-ray of the pelvis shows no acute abnormality. No change. Given the state of this ongoing for a year and is a shooting pain down the left leg I think it is best patient follows up with orthopedics. This could be related to bulging disc and she could benefit from MRI and additional evaluation. She'll be given a Tylenol 3. Patient is ambulatory without difficulty. She will return here for any worsening symptoms. (Luis Miguel Ansari) - Lab Data Lab Results 09/02/19 09/02/19 09/03/19 Range/Units 23:30 23:30 07:03 WBC 9.7 (3.8-10.6) k/uL RBC 4.23 (3.80-5.40) m/uL Hgb 12.8 (11.4-16.0) gm/dL Hct 39.3 (34.0-46.0) % MCV 92.9 (80.0-100.0) fL MCH 30.3 (25.0-35.0) pg MCHC 32.6 (31.0-37.0) g/dL RDW 13.1 (11.5-15.5) % Plt Count 192 (150-450) k/uL Neutrophils % 70 % Lymphocytes % 20 % Monocytes % 7 % Eosinophils % 1 % Basophils % 1 % Neutrophils # 6.8 (1.3-7.7) k/uL Lymphocytes # 1.9 (1.0-4.8) k/uL Monocytes # 0.7 (0-1.0) k/uL Eosinophils # 0.1 (0-0.7) k/uL Basophils # 0.1 (0-0.2) k/uL PT (9.0-12.0) sec INR (<1.2) Sodium 138 (137-145) mmol/L Potassium 3.8 (3.5-5.1) mmol/L Chloride 101 (98-107) mmol/L Carbon Dioxide 30 (22-30) mmol/L Anion Gap 7 mmol/L BUN 41 H (7-17) mg/dL Creatinine 1.34 H (0.52-1.04) mg/dL Est GFR (CKD-EPI)AfAm 44 (>60 ml/min/1.73 sqM) Est GFR (CKD-EPI)NonAf 38 (>60 ml/min/1.73 sqM) Glucose 72 L (74-99) mg/dL POC Glucose (mg/dL) (75-99) mg/dL POC Glu Pest Control Technician ID Calcium 9.4 (8.4-10.2) mg/dL Total Bilirubin 0.7 (0.2-1.3) mg/dL AST 30 (14-36) U/L ALT 27 (4-34) U/L Alkaline Phosphatase 53 (38-126) U/L Total Protein 6.9 (6.3-8.2) g/dL Albumin 4.1 (3.5-5.0) g/dL Coronavirus (PCR) Not Detected (Not Detected) 09/03/19 09/03/19 09/03/19 Range/Units 11:02 12:32 16:45 WBC (3.8-10.6) k/uL RBC (3.80-5.40) m/uL Hgb (11.4-16.0) gm/dL Hct (34.0-46.0) % MCV (80.0-100.0) fL MCH (25.0-35.0) pg MCHC (31.0-37.0) g/dL RDW (11.5-15.5) % Plt Count (150-450) k/uL Neutrophils % % Lymphocytes % % Monocytes % % Eosinophils % % Basophils % % Neutrophils # (1.3-7.7) k/uL Lymphocytes # (1.0-4.8) k/uL Monocytes # (0-1.0) k/uL Eosinophils # (0-0.7) k/uL Basophils # (0-0.2) k/uL PT 10.6 (9.0-12.0) sec INR 1.0 (<1.2) Sodium (137-145) mmol/L Potassium (3.5-5.1) mmol/L Chloride (98-107) mmol/L Carbon Dioxide (22-30) mmol/L Anion Gap mmol/L BUN (7-17) mg/dL Creatinine (0.52-1.04) mg/dL Est GFR (CKD-EPI)AfAm (>60 ml/min/1.73 sqM) Est GFR (CKD-EPI)NonAf (>60 ml/min/1.73 sqM) Glucose (74-99) mg/dL POC Glucose (mg/dL) 86 118 H (75-99) mg/dL POC Glu Pest Control Technician Maria Guadalupe Brasher Yolanda Calcium (8.4-10.2) mg/dL Total Bilirubin (0.2-1.3) mg/dL AST (14-36) U/L ALT (4-34) U/L Alkaline Phosphatase (38-126) U/L Total Protein (6.3-8.2) g/dL Albumin (3.5-5.0) g/dL Coronavirus (PCR) (Not Detected) 09/03/19 09/04/19 09/04/19 Range/Units 21:11 05:59 05:59 WBC 12.1 H (3.8-10.6) k/uL RBC 4.38 (3.80-5.40) m/uL Hgb 13.1 (11.4-16.0) gm/dL Hct 41.8 (34.0-46.0) % MCV 95.5 (80.0-100.0) fL MCH 30.0 (25.0-35.0) pg MCHC 31.4 (31.0-37.0) g/dL RDW 13.2 (11.5-15.5) % Plt Count 176 (150-450) k/uL Neutrophils % 93 % Lymphocytes % 5 % Monocytes % 2 % Eosinophils % 1 % Basophils % 0 % Neutrophils # 11.2 H (1.3-7.7) k/uL Lymphocytes # 0.6 L (1.0-4.8) k/uL Monocytes # 0.2 (0-1.0) k/uL Eosinophils # 0.1 (0-0.7) k/uL Basophils # 0.0 (0-0.2) k/uL PT (9.0-12.0) sec INR (<1.2) Sodium 143 (137-145) mmol/L Potassium 4.6 (3.5-5.1) mmol/L Chloride 108 H (98-107) mmol/L Carbon Dioxide 29 (22-30) mmol/L Anion Gap 6 mmol/L BUN 32 H (7-17) mg/dL Creatinine 1.28 H (0.52-1.04) mg/dL Est GFR (CKD-EPI)AfAm 47 (>60 ml/min/1.73 sqM) Est GFR (CKD-EPI)NonAf 40 (>60 ml/min/1.73 sqM) Glucose 132 H (74-99) mg/dL POC Glucose (mg/dL) 193 H (75-99) mg/dL POC Glu Pest Control Technician ID Joanie Keller Calcium 8.7 (8.4-10.2) mg/dL Total Bilirubin (0.2-1.3) mg/dL AST (14-36) U/L ALT (4-34) U/L Alkaline Phosphatase (38-126) U/L Total Protein (6.3-8.2) g/dL Albumin (3.5-5.0) g/dL Coronavirus (PCR) (Not Detected) 09/04/19 09/04/19 Range/Units 06:29 12:05 WBC (3.8-10.6) k/uL RBC (3.80-5.40) m/uL Hgb (11.4-16.0) gm/dL Hct (34.0-46.0) % MCV (80.0-100.0) fL MCH (25.0-35.0) pg MCHC (31.0-37.0) g/dL RDW (11.5-15.5) % Plt Count (150-450) k/uL Neutrophils % % Lymphocytes % % Monocytes % % Eosinophils % % Basophils % % Neutrophils # (1.3-7.7) k/uL Lymphocytes # (1.0-4.8) k/uL Monocytes # (0-1.0) k/uL Eosinophils # (0-0.7) k/uL Basophils # (0-0.2) k/uL PT (9.0-12.0) sec INR (<1.2) Sodium (137-145) mmol/L Potassium (3.5-5.1) mmol/L Chloride (98-107) mmol/L Carbon Dioxide (22-30) mmol/L Anion Gap mmol/L BUN (7-17) mg/dL Creatinine (0.52-1.04) mg/dL Est GFR (CKD-EPI)AfAm (>60 ml/min/1.73 sqM) Est GFR (CKD-EPI)NonAf (>60 ml/min/1.73 sqM) Glucose (74-99) mg/dL POC Glucose (mg/dL) 162 H 287 H (75-99) mg/dL POC Glu Pest Control Technician ID Kely Kellerfatimah Jane Lydia Calcium (8.4-10.2) mg/dL Total Bilirubin (0.2-1.3) mg/dL AST (14-36) U/L ALT (4-34) U/L Alkaline Phosphatase (38-126) U/L Total Protein (6.3-8.2) g/dL Albumin (3.5-5.0) g/dL Coronavirus (PCR) (Not Detected) Disposition Is patient prescribed a controlled substance at d/c from ED?: No Time of Disposition: 21:02 <Luis Miguel Ansari - Last Filed: 09/02/19 21:01> Is patient prescribed a controlled substance at d/c from ED?: No <Rick Marrero - Last Filed: 09/06/19 15:20> Clinical Impression: Leg pain, left Disposition: HOME SELF-CARE Condition: Good
--- NOTE | 2019-09-02 20:58 | XR ---
EXAMINATION TYPE: XR Hip LT and AP Pelvis DATE OF EXAM: 09/02/2019 COMPARISON: 08/12/2018 HISTORY: Left hip pain. Fall. TECHNIQUE: 3 views FINDINGS: Pelvic ring is intact. Proximal left femur and hip joint are intact. There is no sign of a fracture. Sacroiliac joints are intact. There is atherosclerotic vascular calcification. There is mil d narrowing of the right hip joint space. IMPRESSION: No acute abnormality of the pelvis and left hip. No change.
[2019-09-02] MEDS: ACET/COD 300 MG/30 MG STARTER PACK 6 TAB BTL PO STA (21:07)
[2019-09-02] MEDS ORDERED: NALOXONE 0.4 MG/ML 1 ML VIAL IV PRN (22:17)
[2019-09-02] MEDS ORDERED: MORPHINE SULFATE 4 MG/ML SYRINGE IV PRN (22:17)
[2019-09-03 00:03] LABS: Basophils # (A) 0.1 k/uL (0-0.2); Basophils % (A) 1 %; Eosinophils # (A) 0.1 k/uL (0-0.7); Eosinophils % (A) 1 %; HCT 39.3 % (34.0-46.0); HGB 12.8 gm/dL (11.4-16.0); Lymphocytes # (A) 1.9 k/uL (1.0-4.8); Lymphocytes % (A) 20 %; MCH 30.3 pg (25.0-35.0); MCHC 32.6 g/dL (31.0-37.0); MCV 92.9 fL (80.0-100.0); Mean Platelet Volume 8.5; Monocytes # (A) 0.7 k/uL (0-1.0); Monocytes % (A) 7 %; Neutrophils # (A) 6.8 k/uL (1.3-7.7); Neutrophils % (A) 70 %; Platelet Count 192 k/uL (150-450); RBC 4.23 m/uL (3.80-5.40); RDW 13.1 % (11.5-15.5); WBC 9.7 k/uL (3.8-10.6)
[2019-09-03 00:12] LABS: Albumin 4.1 g/dL (3.5-5.0); Calcium 9.4 mg/dL (8.4-10.2); Potassium 3.8 mmol/L (3.5-5.1); Total Bilirubin 0.7 mg/dL (0.2-1.3); Total Protein 6.9 g/dL (6.3-8.2)
[2019-09-03] MEDS: ACET/COD 300 MG/30 MG STARTER PACK 6 TAB BTL PO STA (01:26)
[2019-09-03] MEDS: HYDROmorphone 0.5 MG/0.5 ML SYRINGE IVP PRN ×3 (01:54→14:07)
[2019-09-03] MEDS: SODIUM CHLORIDE 0.9% 1,000 ML IV SCH ×2 (01:54→13:43)
[2019-09-03] MEDS ORDERED: predniSONE 10 MG TAB PO SCH (10:45)
[2019-09-03] MEDS: GABAPENTIN 400 MG CAP PO SCH ×3 (11:31→21:26)
[2019-09-03] MEDS: PANTOPRAZOLE 40 MG/10 ML VIAL IVP SCH (11:31)
[2019-09-03] MEDS: CARVEDILOL 12.5 MG TAB PO SCH ×2 (11:31→15:16)
[2019-09-03 11:51] LABS: Prothrombin Time 10.6 sec (9.0-12.0)
[2019-09-03 12:44] LABS: Glucose,Whole Blood 86 mg/dL (75-99)
[2019-09-03] MEDS: INSULIN ASPART (NovoLOG) 100 UNIT/ML VIAL SQ SCH ×3 (12:49→21:24)
--- NOTE | 2019-09-03 13:20 | HP ---
HISTORY AND PHYSICAL CHIEF COMPLAINT: 79-year-old white female, dyslipidemia, hypertension, diabetes mellitus, presents with left hip pain over the past year radiates to the left foot, worsening, unable to walk on it. Her leg was numb. She is unable to ambulate. She wants an epidural injection as she is unable to live with this pain and inability to ambulate. Denies any nausea, vomiting, headache, visual changes, abdominal pain. MEDICATIONS: Lasix 40 daily, aspirin 81 mg daily. Simvastatin 80 daily, magnesium 200 b.i.d., multivitamin daily, Requip 0.5 b.i.d., prednisone 10 mg daily, Coreg 12.5 b.i.d., Vitamin D3 400 units daily. Lasix 20 daily. ALLERGIES: Negative. 14-point review of systems negative except for mentioned in HPI. PAST MEDICAL HISTORY: Diabetes mellitus, dyslipidemia, hypertension, memory impairment. SOCIAL HISTORY: Former smoker. FAMILY HISTORY: Father negative. Mother negative. PHYSICAL EXAM: Vital signs stable. Afebrile. Well developed, well nourished white female in no acute distress. Pupils equal, round, reactive. NECK: Supple. No mass. RESPIRATORY: Normal lung sounds. Decreased breath sounds. CARDIAC: Regular rate and rhythm, S1, S2. GI soft, nontender. Extremities: Straight leg raising test left leg. Dorsalis pedis, posterior tibials are normal. Difficulties with range of motion of hip and lifting her left leg off the bed. ASSESSMENT AND PLAN: 1. Acute lumbar disc herniation. 2. Lumbar neuritis. 3. She will need an epidural injection. 4. History of diabetes and diabetic neuropathy. 5. Diastolic congestive heart failure. PLAN: Admit the patient. Anesthesia to give epidural shot. MRI of the lumbar spine is pending. Please see further orders and try to get an epidural prior to discharge. MMODL / IJN: [id number] /
[2019-09-03] MEDS: CHOLECALCIFEROL 400 UNIT TAB PO SCH (13:43)
[2019-09-03] MEDS: PIOGLITAZONE 15 MG TAB PO SCH (13:43)
[2019-09-03] MEDS: REPAGLINIDE 1 MG TAB PO SCH ×2 (14:17→16:49)
[2019-09-03] MEDS ORDERED: ONDANSETRON 4 MG/2 ML VIAL IVP PRN (14:35)
[2019-09-03] MEDS: methylPREDNISolone SOD SUCCI 40 MG/ML 1 ML VIAL IV SCH (15:15)
[2019-09-03 16:47] LABS: Glucose,Whole Blood 118 mg/dL (75-99)
--- NOTE | 2019-09-03 19:10 | MR ---
EXAMINATION TYPE: MR lumbar spine wo con DATE OF EXAM: 09/03/2019 COMPARISON: None HISTORY: Severe lower Back Pain Multiplanar multiecho imaging of the lumbar spine was performed with no contrast. There is mild narrowing of the disc spaces throughout the lumbar spine. There is 5 mm anterior sublux ation of L4 in relation L5. There is hypertrophic facet arthropathy and resultant severe spinal steno sis at L4-5. There is no compression fracture. There is no lumbar paraspinal mass. The visualized sac roiliac joints appear intact. I see no focal bone destruction. There is small posterior disc bulge at L5-S1 without compromise of the spinal canal. There is small posterior disc herniation at L1 2 elevating in the posterior longitudinal ligament on the posterior aspect of the L2 vertebral body. There is developmentally adequate canal at this level and no spinal stenosis. IMPRESSION: Degenerative first-degree L4-5 spondylolisthesis with severe L4-5 bony spinal stenosis related to fac et arthropathy and subluxation deformity. No fracture.
[2019-09-03 21:17] LABS: Glucose,Whole Blood 193 mg/dL (75-99)
[2019-09-03] MEDS: ATORVASTATIN 40 MG TAB PO SCH (21:26)
[2019-09-04] MEDS: methylPREDNISolone SOD SUCCI 40 MG/ML 1 ML VIAL IV SCH ×3 (00:31→16:22)
[2019-09-04] MEDS: SODIUM CHLORIDE 0.9% 1,000 ML IV SCH ×2 (01:29→18:20)
[2019-09-04 06:10] LABS: Basophils % (A) 0 %; Eosinophils # (A) 0.1 k/uL (0-0.7); Eosinophils % (A) 1 %; HCT 41.8 % (34.0-46.0); HGB 13.1 gm/dL (11.4-16.0); Lymphocytes # (A) 0.6 k/uL (1.0-4.8); Lymphocytes % (A) 5 %; MCHC 31.4 g/dL (31.0-37.0); MCV 95.5 fL (80.0-100.0); Mean Platelet Volume 8.3; Monocytes # (A) 0.2 k/uL (0-1.0); Monocytes % (A) 2 %; Neutrophils # (A) 11.2 k/uL (1.3-7.7); Neutrophils % (A) 93 %; Platelet Count 176 k/uL (150-450); RBC 4.38 m/uL (3.80-5.40); RDW 13.2 % (11.5-15.5); WBC 12.1 k/uL (3.8-10.6)
[2019-09-04 06:29] LABS: Calcium 8.7 mg/dL (8.4-10.2); Potassium 4.6 mmol/L (3.5-5.1)
[2019-09-04 06:31] LABS: Glucose,Whole Blood 162 mg/dL (75-99)
[2019-09-04] MEDS: PANTOPRAZOLE 40 MG/10 ML VIAL IVP SCH (08:30)
[2019-09-04] MEDS: GABAPENTIN 400 MG CAP PO SCH ×3 (08:30→21:54)
[2019-09-04] MEDS: CARVEDILOL 12.5 MG TAB PO SCH ×2 (08:30→18:18)
[2019-09-04] MEDS: INSULIN ASPART (NovoLOG) 100 UNIT/ML VIAL SQ SCH ×4 (08:37→21:55)
[2019-09-04] MEDS: REPAGLINIDE 1 MG TAB PO SCH ×3 (08:38→18:18)
[2019-09-04] MEDS: CHOLECALCIFEROL 400 UNIT TAB PO SCH (08:38)
[2019-09-04] MEDS: PIOGLITAZONE 15 MG TAB PO SCH (08:38)
[2019-09-04 12:06] LABS: Glucose,Whole Blood 287 mg/dL (75-99)
[2019-09-04 18:04] LABS: Glucose,Whole Blood 232 mg/dL (75-99)
[2019-09-04 21:20] LABS: Glucose,Whole Blood 254 mg/dL (75-99)
[2019-09-04] MEDS: ATORVASTATIN 40 MG TAB PO SCH (21:54)
[2019-09-05] MEDS: methylPREDNISolone SOD SUCCI 40 MG/ML 1 ML VIAL IV SCH ×3 (00:15→16:35)
[2019-09-05] MEDS: SODIUM CHLORIDE 0.9% 1,000 ML IV SCH ×2 (04:45→21:57)
[2019-09-05 06:44] LABS: Glucose,Whole Blood 235 mg/dL (75-99)
--- NOTE | 2019-09-05 07:54 | PN ---
PROGRESS NOTE DATE OF SERVICE: 09/04/2019 79-year-old white female with irretractable left leg pain. MRI shows severe lumbar stenosis. Due to difficulty with ambulation, she will stay on IV steroids over the weekend until epidural can be done on Friday. Cardiovascular S1-S2. Lungs clear. GI soft. Musculoskeletal limited motion of the left leg. ASSESSMENT: Acute lumbar disc herniation with severe spinal stenosis. Lumbar epidural on Friday by [facility]. Continue with IV steroids. Prognosis is guarded. She does not want surgery. There is no neuro surgery people available on the weekend. Will have to wait for pain management on Friday. Continue current treatments. MMODL / IJN: [id number] /
[2019-09-05] MEDS: REPAGLINIDE 1 MG TAB PO SCH ×3 (08:04→18:05)
[2019-09-05] MEDS: PIOGLITAZONE 15 MG TAB PO SCH (08:05)
[2019-09-05] MEDS: GABAPENTIN 400 MG CAP PO SCH ×3 (08:05→21:58)
[2019-09-05] MEDS: CARVEDILOL 12.5 MG TAB PO SCH ×2 (08:05→18:05)
[2019-09-05] MEDS: PANTOPRAZOLE 40 MG/10 ML VIAL IVP SCH (08:05)
[2019-09-05] MEDS: INSULIN ASPART (NovoLOG) 100 UNIT/ML VIAL SQ SCH ×4 (08:05→21:58)
[2019-09-05] MEDS: CHOLECALCIFEROL 400 UNIT TAB PO SCH (08:05)
[2019-09-05 11:55] LABS: Glucose,Whole Blood 244 mg/dL (75-99)
--- NOTE | 2019-09-05 14:42 | PN ---
PROGRESS NOTE 79-year-old white female with acute lumbar radiculopathy of the left leg. MRI shows severe lumbar stenosis, degenerative disc disease. She did have epidural scheduled for tomorrow for pain clinic physician. Cardiovascular S1-S2. Lungs clear. GI soft. Hematology negative Homans. ASSESSMENT: 1. Acute lumbar disc disease. 2. Irretractable lumbar pain. Continue with IV steroids. Possible discharge home. Possible outpatient epidural shot. Please see further orders. Accu-Chek protocol due to steroids and hyperglycemia secondary to steroids. Please see further orders. MMODL / IJN: [id number] /
[2019-09-05 17:12] LABS: Glucose,Whole Blood 267 mg/dL (75-99)
[2019-09-05 21:25] LABS: Glucose,Whole Blood 285 mg/dL (75-99)
[2019-09-05] MEDS: ATORVASTATIN 40 MG TAB PO SCH (21:58)
[2019-09-06] MEDS: methylPREDNISolone SOD SUCCI 40 MG/ML 1 ML VIAL IV SCH ×3 (00:05→15:52)
[2019-09-06 07:07] LABS: Glucose,Whole Blood 226 mg/dL (75-99)
[2019-09-06] MEDS: SODIUM CHLORIDE 0.9% 1,000 ML IV SCH ×2 (07:36→20:43)
[2019-09-06] MEDS: GABAPENTIN 400 MG CAP PO SCH ×3 (09:46→20:43)
[2019-09-06] MEDS: PANTOPRAZOLE 40 MG TABLET PO SCH (09:47)
[2019-09-06] MEDS: CARVEDILOL 12.5 MG TAB PO SCH ×2 (09:47→17:47)
[2019-09-06] MEDS: INSULIN ASPART (NovoLOG) 100 UNIT/ML VIAL SQ SCH ×4 (09:47→21:21)
[2019-09-06] MEDS: PIOGLITAZONE 15 MG TAB PO SCH (09:48)
[2019-09-06] MEDS: REPAGLINIDE 1 MG TAB PO SCH ×3 (09:48→17:47)
[2019-09-06] MEDS: CHOLECALCIFEROL 400 UNIT TAB PO SCH (09:48)
[2019-09-06 11:34] LABS: Glucose,Whole Blood 299 mg/dL (75-99)
--- NOTE | 2019-09-06 11:43 | P.CONS ---
History of Present Illness - Reason for Consult Consult date: 09/06/19 - Chief Complaint Lower back and left leg pain - History of Present Illness This is a 79-year-old lady with history of chronic lower back pain with radiation to the left lower extremity down to the toes with occasional numbness and tingling in the first toe. Patient's pain gets worse with activity but she denies any weakness in the lower extremities or any bowel or bladder dysfunction. MRI of the lumbar spine showed lumbar spondylolisthesis and severe stenosis at the L4 5 level. It also showed widespread degenerative disc disease. Past Medical History Past Medical History: Diabetes Mellitus, Hyperlipidemia, Hypertension, Memory Impairment, Pneumonia History of Any Multi-Drug Resistant Organisms: None Reported Past Surgical History: Hysterectomy, Tonsillectomy Additional Past Surgical History / Comment(s): right leg vein stripping Past Anesthesia/Blood Transfusion Reactions: No Reported Reaction Past Psychological History: No Psychological Hx Reported Smoking Status: Former smoker Past Alcohol Use History: None Reported Past Drug Use History: None Reported - Past Family History Father Family Medical History: No Reported History Mother Family Medical History: No Reported History Medications and Allergies Home Medications Medication Instructions Recorded Confirmed Type Simvastatin [Zocor] 80 mg PO HS 11/29/13 09/02/19 History predniSONE 10 mg PO DAILY 03/08/18 09/02/19 History Carvedilol [Coreg] 12.5 mg PO BID 08/12/18 09/02/19 History Cholecalciferol [Vitamin D3] 400 unit PO DAILY 12/01/18 09/02/19 History Furosemide [Lasix] 40 mg PO BID 12/01/18 09/02/19 History Dulaglutide [Trulicity] 1.5 mg SQ TH 09/02/19 09/02/19 History Gabapentin [Neurontin] 400 mg PO TID 09/02/19 09/02/19 History Pioglitazone [Actos] 15 mg PO DAILY 09/02/19 09/02/19 History Repaglinide [Prandin] 1 mg PO AC-TID 09/02/19 09/02/19 History Allergies Allergy/AdvReac Type Severity Reaction Status Date / Time No Known Allergies Allergy Verified 09/02/19 22:33 Physical Exam Vitals: Vital Signs Temp Pulse Pulse Resp BP Pulse Ox 09/06/19 07:56 97.8 F 80 18 151/71 96 09/06/19 04:00 60 16 09/06/19 00:00 97.5 F L 53 L 53 L 18 163/73 94 L 09/05/19 20:00 97.6 F 62 62 17 165/72 97 09/05/19 16:51 16 09/05/19 16:32 96.8 F L 61 16 157/67 90 L 09/05/19 12:57 97 F L 09/05/19 12:54 59 L 14 123/77 95 Intake and Output 09/05/19 09/06/19 09/06/19 22:59 06:59 14:59 Intake Total 930 300 480 Balance 930 300 480 Intake: Oral 930 300 480 Other: Voiding Method Toilet Toilet Toilet # Voids 2 1 1 - Constitutional General appearance: obese - Neurologic Neuro exam of the lower extremities showed normal and symmetrical muscle streng th bilaterally. Straight leg raising test mildly positive on the left side. The patient has very mild tenderness in the lumbar paravertebral area. Neurologic: CNII-XII intact - Psychiatric Psychiatric: A&O x's 3, appropriate affect, intact judgment & insight Results CBC & Chem 7: 09/04/19 05:59 09/04/19 05:59 Labs: Abnormal Lab Results - Last 24 Hours (Table) 09/05/19 09/05/19 09/05/19 Range/Units 11:54 17:10 21:22 POC Glucose (mg/dL) 244 H 267 H 285 H (75-99) mg/dL 09/06/19 09/06/19 Range/Units 07:05 11:32 POC Glucose (mg/dL) 226 H 299 H (75-99) mg/dL Assessment and Plan Plan: This is a 79-year-old lady with severe lumbar stenosis and spondylolisthesis at the L4 5 level and left lumbar radiculopathy. The patient may benefit from getting lumbar epidural steroid injection in the left paramedian approach under fluoroscopic guidance. The procedure was explained to the patient and her questions were answered. We will make the patient nothing by mouth after midnight. The patient denies being on any anticoagulant treatment but she does have history of diabetes mellitus. I thank you for the consultation
[2019-09-06 17:05] LABS: Glucose,Whole Blood 273 mg/dL (75-99)
[2019-09-06 20:43] LABS: Glucose,Whole Blood 307 mg/dL (75-99)
[2019-09-06] MEDS: ATORVASTATIN 40 MG TAB PO SCH (20:43)
--- NOTE | 2019-09-06 22:30 | PN ---
PROGRESS NOTE This patient is a 79-year-old white female who is on IV Solu-Medrol 40 q.8 hours. Waiting for epidural shot tomorrow [facility]. Once she has epidural, she will possibly be able to be discharged home. She has severe stenosis at L4-L5, degenerative disc disease. Numbness and tingling in that leg, chronic, which is worse than normal; unable to have any improvement or able to walk. ASSESSMENT: 1. Preoperative lumbar epidural steroid injection in the left paramedian approach under fluoroscopy tomorrow. 2. Diabetes mellitus, controlled. 3. Hypertension. 4. Chronic obstructive pulmonary disease. treatment epidural then go home. MMODL / IJN: [id number] /
[2019-09-07] MEDS: methylPREDNISolone SOD SUCCI 40 MG/ML 1 ML VIAL IV SCH ×2 (00:27→07:52)
[2019-09-07 06:12] LABS: Glucose,Whole Blood 159 mg/dL (75-99)
[2019-09-07] MEDS: INSULIN ASPART (NovoLOG) 100 UNIT/ML VIAL SQ SCH ×2 (07:44→12:37)
[2019-09-07] MEDS: CARVEDILOL 12.5 MG TAB PO SCH (07:52)
[2019-09-07] MEDS: CHOLECALCIFEROL 400 UNIT TAB PO SCH (07:52)
[2019-09-07] MEDS: PANTOPRAZOLE 40 MG TABLET PO SCH (07:52)
[2019-09-07] MEDS: REPAGLINIDE 1 MG TAB PO SCH ×2 (07:52→10:42)
[2019-09-07] MEDS: GABAPENTIN 400 MG CAP PO SCH ×2 (07:52→15:38)
[2019-09-07] MEDS: PIOGLITAZONE 15 MG TAB PO SCH ×2 (07:53→10:42)
[2019-09-07] MEDS ORDERED: IV FLUID CONTINUATION 1,000 ML IV ONE (09:42)
[2019-09-07 09:51] LABS: Glucose,Whole Blood 116 mg/dL (75-99)
[2019-09-07] MEDS ORDERED: IOPAMIDOL M200 10 ML VIAL ONE (09:56)
[2019-09-07] MEDS ORDERED: methylPREDNISolone ACETATE 40 MG/ML 1 ML VIAL ONE (09:56)
--- NOTE | 2019-09-07 10:10 | P.PCN ---
Date of Procedure: 09/07/19 Procedure(s) Performed: PREOPERATIVE DIAGNOSIS: 1- Lumbar radiculopathy, Lumbar Degenerative Disc Diseases 2-Lumbar spondylosis with Facet arthropathy without myelopathy POSTOPERATIVE DIAGNOSIS: 1-Lumber Degenerative Disc Diseases 2-Lumbar spondylosis with Facet arthropathy without myelopathy PROCEDURE 1. Lumbar epidural steroid injection under fluoroscopic guidance at the L4-5 level using a left paramedian approach 2. Lumbar epidurogram. ANESTHESIA: Local with 1% lidocaine 3 ml, no IV sedation was used Fluoroscopy was used for the procedure and images were saved in the radiology portion of the chart. EBL: Minimal PROCEDURE INDICATION: The patient with low back pain and radiculitis symptoms unresponsive to conservative treatment. Fluoroscopy was used to optimize visualization of the needle placement and to maximize safety. PROCEDURE DESCRIPTION / TECHNIQUE: The patient was seen and identified in the preoperative area. Risks, benefits, complications including but not limited to infections ,bleeding ,allergic reaction to the medications ,nerve damage and incomplete pain releif , and alternatives were discussed with the patient. The patient agreed to proceed with the procedure and signed the consent. IV was started, and vital signs were stable. Patient was taken to the OR and time out was completed. The patient was placed in the prone position on procedure table and a pillow was placed under the abdomen to reduce lumbar lordosis. The lumbosacral area was prepped and draped in the usual sterile fashion. Vitals were closely monitored during the procedure. Using anterior-posterior fluoroscopy, the L4-5 interlaminar space was identified and the skin over this site was marked and then infiltrated with 1% lidocaine subcutaneously. Subsequently, a 20-gauge 3.5" Tuohy epidural needle was inserted and advanced toward the epidural space using the loss of resistance technique and guided by AP and lateral/ oblique fluoroscopy. The correct needle position in the epidural space was verified with the injection of 2 mL of the water soluble contrast dye Isovue 200 contrast under live fluoroscopy, observing an excellent epidurogram. Then, after negative aspiration for blood and CSF and in the absence of paresthesias, a 5 ml mixture containing 40 mg of Depo-medrol , 3 ml of preservative free Normal Saline, and 1 ml of preservative free lidocaine 1% solution was injected and a washout epidurogram was seen. Needle was withdrawn intact, skin was cleansed, and bandages were applied. COMPLICATIONS: None DISPOSITION / PLANS: The patient was placed in a supine position and transferred to the recovery area in a stable condition for observation. There was no evidence of lower extremity motor or sensory deficit after the procedure. Patient was discharged from the recovery room after meeting discharge criteria. Home discharge instructions were given to the patient by the staff. The patient will schedule a follow up in the clinic in 2-4 weeks.
[2019-09-07 10:38] VITALS: BP 148/66; PULSE 53; RESP 12; TEMP 98.4
[2019-09-07] MEDS: SODIUM CHLORIDE 0.9% 1,000 ML IV SCH (10:42)
--- NOTE | 2019-09-07 10:42 | P.DS ---
Providers Date of admission: 09/04/19 12:40 Expected date of discharge: 09/07/19 Attending physician: Tu Coon [facility]: Final diagnoses Lumbar radiculopathy, lumbar degenerative disc disease in a patient with history of stenosis greatest at L4 to L5, market facet arthropathy, degenerative disc disease, multilevel foraminal encroachment at L3-L4, L4-L5 and L5-S1 as per prior CT. Current MRI findings as below. -Peripheral neuropathy, lumbar radiculopathy, lumbar spondylosis, lumbar degenerative disc disease -History of nicotine dependence -Diabetes mellitus, uncontrolled, hyperglycemic, now controlled -Hypertension -Hyperlipidemia -History of CVA -Gait dysfunction, uses a cane -Pulmonary hypertension -Moderate aortic valve sclerosis Hospital course this a 79-year-old female admitted with acute lumbar disc disease, intractable lumbar pain. Hip and pelvis x-ray reported no acute abnormality, no fracture, no change. Lumbar spine MRI reported degenerative first-degree L4-5 spinal lithiasis with severe L4 to L5 bony spinal stenosis related to facet arthropathy and subluxation deformity, no fracture Evaluated by pain management services, underwent lumbar epidural steroid injection, lumbar epiduprogram. Tolerated procedure well. Patient will be discharged home today in stable condition pending follow-up blood pressure. The impression and plan of care has been dictated as directed. : I performed a history and examination of this patient, discussed the same with the dictator. I agree with the dictator's note ,documented as a scribe. Any additional findings or plans will be noted. Patient Condition at Discharge: Stable Plan - Discharge Summary Discharge Rx Participant: No New Discharge Prescriptions: Continue Simvastatin [Zocor] 80 mg PO HS predniSONE 10 mg PO DAILY Carvedilol [Coreg] 12.5 mg PO BID Cholecalciferol [Vitamin D3] 400 unit PO DAILY Pioglitazone [Actos] 15 mg PO DAILY Repaglinide [Prandin] 1 mg PO AC-TID Dulaglutide [Trulicity] 1.5 mg SQ TH Gabapentin [Neurontin] 400 mg PO TID Changed Furosemide [Lasix] 40 mg PO DAILY #0 Discharge Medication List Simvastatin [Zocor] 80 mg PO HS 11/29/13 [History] predniSONE 10 mg PO DAILY 03/08/18 [History] Carvedilol [Coreg] 12.5 mg PO BID 08/12/18 [History] Cholecalciferol [Vitamin D3] 400 unit PO DAILY 12/01/18 [History] Dulaglutide [Trulicity] 1.5 mg SQ TH 09/02/19 [History] Gabapentin [Neurontin] 400 mg PO TID 09/02/19 [History] Pioglitazone [Actos] 15 mg PO DAILY 09/02/19 [History] Repaglinide [Prandin] 1 mg PO AC-TID 09/02/19 [History] Furosemide [Lasix] 40 mg PO DAILY #0 09/07/19 [Rx] Follow up Appointment(s)/Referral(s): [facility], [NON-STAFF] - Niru Kellogg DO [Doctor of Osteopathic Medicine] - 1-2 days Tu Coon MD [Primary Care Provider] - 3 Days Ambulatory/Diagnostic Orders: Basic Metabolic Panel [LAB.AMB] Time Frame: 3 Days, Location: None Selected Patient Instructions/Handouts: Leg Pain (ED) Activity/Diet/Wound Care/Special Instructions: Please follow up with primary care in 1-2 days. Please Tylenol 3 for pain but be careful not to fall while taking this. Follow up with orthopedics as well. Return to the emergency room for any worsening symptoms. Follow up with the Pain Clinic in 2 weeks per their recommendations. They will call to schedule a follow up appointment. Renal function improving, decreased home dose Lasix.
[2019-09-07 11:51] LABS: Glucose,Whole Blood 153 mg/dL (75-99)
[2019-09-07] MEDS ORDERED: traMADol 50 MG TAB PO PRN (13:19)
--- NOTE | 2019-09-07 15:05 | FL ---
Fluoroscopy History: Pain 6 seconds of fluoroscopic time and 3 films are submitted.
[2019-09-09] MEDS ORDERED: PATIENT'S OWN MED (Dulaglutide [Trulicity] 1.5 MG) SQ SCH (12:00)
== END 2019-09-07 16:06 | disposition home or self-care (01) | DRG 552 ==
LOC: EC 19:42 → 1SOBS 22:21 → OBSVTOIN 09-04 12:40
PROVIDERS: ADMIT Family Medicine; ATTEND Family Medicine
PROC: 3E0R33Z Introduction of Anti-inflammatory into Spinal Canal, Percutaneous Approach (ICD-10-PCS; principal; 2019-09-07 12:30)
PROC: 3E0R3BZ Introduction of Anesthetic Agent into Spinal Canal, Percutaneous Approach (ICD-10-PCS; principal; 2019-09-07 12:30)
DX: M51.16 Intervertebral disc disorders with radiculopathy, lumbar region (principal); I50.30 Unspecified diastolic (congestive) heart failure; E11.40 Type 2 diabetes mellitus with diabetic neuropathy, unspecified; E11.65 Type 2 diabetes mellitus with hyperglycemia; E78.5 Hyperlipidemia, unspecified; I11.0 Hypertensive heart disease with heart failure; I27.20 Pulmonary hypertension, unspecified; I35.8 Other nonrheumatic aortic valve disorders; J44.9 Chronic obstructive pulmonary disease, unspecified; M43.16 Spondylolisthesis, lumbar region; M47.26 Other spondylosis with radiculopathy, lumbar region; M48.061 Spinal stenosis, lumbar region without neurogenic claudication; Z11.59 Encounter for screening for other viral diseases; T38.0X5A Adverse effect of glucocorticoids and synthetic analogues, initial encounter; Z79.84 Long term (current) use of oral hypoglycemic drugs; Z79.899 Other long term (current) drug therapy; Z86.73 Personal history of transient ischemic attack (TIA), and cerebral infarction without residual deficits; Z87.891 Personal history of nicotine dependence; Z90.710 Acquired absence of both cervix and uterus; Z79.52 Long term (current) use of systemic steroids
CPT/HCPCS: 62323; 72148; 73502; 80048; 80053; 85025; 85610; 99284

== ENCOUNTER → 2019-10-05 | Outpatient (CLI) | payer MEDICARE ==
[2019-10-05 12:31] VITALS: BP 121/76; PULSE 106; RESP 18
--- NOTE | 2019-10-05 13:09 | P.PAINPG ---
Subjective Progress Note Date: 10/05/19 This is a follow-up visit for this 79-year-old female patient who presents with a chief complaint of left low back pain radiating to left knee which began after a fall. She has been diagnosed with lumbar degenerative disc disease, lumbar radicular pain, lumbar spinal canal stenosis, lumbar spondylosis. She was seen while an inpatient on 09/06/2019. She underwent lumbar epidural steroid injection at L4-5 left paramedian approach on 09/07/2019. She reports today for follow-up. She states the procedure helped her pain by 30% or so. Her pain complaint today is located in the left low back, rated as 8/10. Pain is worse with activity, standing, walking and better with medications. Pain is described as constant. Review of systems is negative for chest pain, shortness of breath, new onset weakness, numbness/tingling, abdominal pain, malaise, fever, night sweats, chills, homicidal or suicidal ideation, or bowel or bladder incontinence. Physical exam: Vitals: Reviewed in EMR GENERAL: Well appearing, in no acute distress, cane by her side PSYCH: Mood and affect is appropriate. Awake, alert, and oriented SKIN: Skin color, texture, turgor normal, no rashes or lesions HEENT: Normocephalic, atraumatic. EOM intact CV: No pedal edema RESP: Respirations are unlabored, no audible wheezing GI: Abdomen non-distended MUSCULOSKELETAL: Bilateral lower extremity strength is normal and symmetric. No atrophy or tone abnormalities are noted. Lumbar spine: Straight leg raising in the sitting position is positive on the left side for radicular pain. Mild pain to palpation over the lumbar spine and paraspinous muscles, left greater than right. Buttocks: Tenderness to palpation over the left PSIS, left Madisyn test positive, left sacral thrust positive, left Gaenslen's test positive Extremities: Peripheral joint ROM is full and pain free without obvious instability or laxity in all four extremities. No edema or skin discolorations noted. Gait: Gait is slow, antalgic, walks with a cane NEUR: Bilateral lower extremity coordination and muscle stretch reflexes are physiologic and symmetric. Negative clonus bilaterally. No loss of sensation is noted. Imaging: MRI lumbar spine done at [facility] in 6/2020shows stage 1 spondylolisthesis at L4-5 and severe spinal canal stenosis due to facet hypertrophy and subluxation deformity at L4-5 Assessment: 1. Lumbar degenerative disc disease, lumbar spondylosis, lumbar radicular pain 2. Lumbar spinal canal stenosis 3. Left SI joint dysfunction Plan: 1. We will schedule left SI joint injection 2. Medications: Managed per primary care physician. Of note, she is on prednisone 10 mg daily. In the future, if she were to have further steroid injections, we will have to have a discussion with Dr. Coon regarding prednisone 3. Follow up: For above-mentioned procedure PQRS measures: 1-Patient's medications are documented in the chart. 2-Tobacco use is negative, counseling given 3-Patient has had a pneumococcal vaccine. 4-Advanced care planning discussed, patient not eligible. 5-Opioid contract not signed with the patient. 6-Pain positive, follow-up visit or procedure scheduled 7-patient blood pressure measured and documented, and is within normal limits 8-Patient's weight was measured, and body mass index ABOVE the normal limits, and counseling was done. Patient instructed to follow up with PCP. 9-Patient WAS NOT identified as an unhealthy alcohol user. Objective - Vital Signs Vital signs: Vital Signs Temp Pulse 106 H 10/05/19 12:25 Resp 18 10/05/19 12:25 BP 121/76 10/05/19 12:25 Pulse Ox 96 10/05/19 12:25 PQRS Measure Charge Sheet PQRS Narrative: Smoking Status Former smoker Blood Pressure 121/76 Pain Intensity [Left Hip] 8 Scale Used Numeric (1 - 10) Hx Alcohol Use (MH) No Home Medications: Ambulatory Orders Simvastatin [Zocor] 80 mg PO HS 11/29/13 predniSONE 10 mg PO DAILY 03/08/18 Carvedilol [Coreg] 12.5 mg PO BID 08/12/18 Cholecalciferol [Vitamin D3] 400 unit PO DAILY 12/01/18 Dulaglutide [Trulicity] 1.5 mg SQ TH 09/02/19 Gabapentin [Neurontin] 400 mg PO TID 09/02/19 Pioglitazone [Actos] 15 mg PO DAILY 09/02/19 Repaglinide [Prandin] 1 mg PO AC-TID 09/02/19 Furosemide [Lasix] 40 mg PO DAILY #0 06/30/20 traMADol HCL [Ultram] 50 mg PO TID 3 Days #9 tab 09/07/19 Controlled Substance Measures - Controlled Substance Measures Is patient prescribed a controlled substance at discharge?: No
== END | disposition home or self-care (01) ==
LOC: PNWHC3 12:14
PROVIDERS: ATTEND Anesthesiology
DX: M48.061 Spinal stenosis, lumbar region without neurogenic claudication (principal); M51.16 Intervertebral disc disorders with radiculopathy, lumbar region; M53.3 Sacrococcygeal disorders, not elsewhere classified; M47.26 Other spondylosis with radiculopathy, lumbar region; Z87.891 Personal history of nicotine dependence; Z79.899 Other long term (current) drug therapy; Z79.84 Long term (current) use of oral hypoglycemic drugs; Z79.891 Long term (current) use of opiate analgesic; Z79.52 Long term (current) use of systemic steroids
CPT/HCPCS: 99211

== ENCOUNTER 2019-10-12 11:48 | Observation (INO) | payer MEDICARE ==
[2019-10-12] MEDS ORDERED: PIPERACILLIN-TAZOBACTAM 3.375 GM in SODIUM CHLORIDE 0.9% 100 ML IVPB ONE (16:00)
[2019-10-12 16:13] LABS: Basophils % (A) 1 %; Eosinophils # (A) 0.3 k/uL (0-0.7); Eosinophils % (A) 4 %; HCT 36.1 % (34.0-46.0); HGB 11.6 gm/dL (11.4-16.0); Lymphocytes # (A) 1.1 k/uL (1.0-4.8); Lymphocytes % (A) 13 %; MCH 29.8 pg (25.0-35.0); MCV 93.1 fL (80.0-100.0); Mean Platelet Volume 7.9; Monocytes # (A) 0.6 k/uL (0-1.0); Monocytes % (A) 7 %; Neutrophils # (A) 6.3 k/uL (1.3-7.7); Neutrophils % (A) 74 %; Platelet Count 274 k/uL (150-450); RBC 3.88 m/uL (3.80-5.40); RDW 13.1 % (11.5-15.5); WBC 8.4 k/uL (3.8-10.6)
[2019-10-12 16:41] LABS: Albumin 3.6 g/dL (3.5-5.0); Calcium 9.7 mg/dL (8.4-10.2); Potassium 4.1 mmol/L (3.5-5.1); Total Protein 6.5 g/dL (6.3-8.2)
[2019-10-12] MEDS: carvediloL 12.5 MG TAB PO SCH (16:46)
[2019-10-12] MEDS: GABAPENTIN 400 MG CAP PO SCH ×2 (16:46→22:02)
[2019-10-12] MEDS: REPAGLINIDE 1 MG TAB PO SCH (16:46)
[2019-10-12] MEDS: SODIUM CHLORIDE 0.9% 1,000 ML IV SCH (16:47)
[2019-10-12] MEDS: FUROSEMIDE 40 MG TAB PO SCH (16:47)
[2019-10-12 16:58] LABS: Erythrocyte Sedimentation Rate 101 mm/hr (0-20)
[2019-10-12 17:02] LABS: C Reactive Protein 145.6 mg/L (<10.0)
--- NOTE | 2019-10-12 17:10 | XR ---
EXAMINATION TYPE: XR foot complete LT DATE OF EXAM: 10/12/2019 COMPARISON: 09/26/2016 HISTORY: Big toe cellulitis TECHNIQUE: 3 views FINDINGS: There is narrowing of the first MP joint with hallux valgus and hypertrophic spurring. Ther e are plantar and Achilles calcaneal spurs. There is soft tissue swelling of the forefoot. The metata rsals appear intact. There is some calcification at the nailbed of the big toe. I see no focal bone d estruction. IMPRESSION: Soft tissue swelling. This would be consistent with cellulitis. Hallux valgus and osteoar thritis. No evidence of inflammatory arthritis. No specific sign of osteomyelitis. Soft tissue swelli ng is new compared to old exam.
[2019-10-12 17:40] LABS: Appearance,Urine Clear (Clear); Bacteria,Urine Rare /hpf; Bilirubin,Urine Negative (Negative); Blood,Urine Negative (Negative); Color,Urine Light Yellow; Glucose,Urine (UA) Trace (Negative); Ketones,Urine Negative (Negative); Leukocyte Esterase,Urine Moderate (Negative); Mucus,Urine Rare /hpf; Nitrite,Urine Negative (Negative); Protein,Urine Negative (Negative); RBC,Urine 1 /hpf (0-5); Specific Gravity,Urine 1.012 (1.001-1.035); Squamous Epithelial Cell,Urine 1 /hpf (0-4); Urobilinogen,Urine <2.0 mg/dL (<2.0); WBC,Urine 22 /hpf (0-5)
--- NOTE | 2019-10-12 18:51 | CT ---
EXAMINATION TYPE: CT abdomen pelvis wo con DATE OF EXAM: 10/12/2019 COMPARISON: 03/08/2018 HISTORY: Abdominal pain CT DLP: 662.8 mGycm Automated exposure control for dose reduction was used. Multiple axial sections were obtained from the diaphragm to the floor the pelvis without contrast. There is some mild atelectasis at the lung bases. Heart is enlarged. There is coronary artery calcifi cation. There is calcification of the mitral annulus. Thoracic aorta is atheromatous. There is no ple ural effusion. Liver spleen stomach appear normal. Pancreas appears normal. There are multiple calcified gallstones. Bile ducts are not dilated. There is no adrenal mass. Kidneys have fairly normal size and contour. There is no hydronephrosis. Ur eters are not dilated. There is no retroperitoneal adenopathy. Bladder distends smoothly. There is no inguinal hernia. Appendix is posterior and appears normal. There is atherosclerotic vascular calcifi cation in the abdominal aorta and its branches. There is no mesenteric edema. There is no ascites or free air. There is no sign of a bowel obstruction. There is a degenerative first-degree L4-5 spondylolisthesis. There is no lumbar compression fracture. There is multilevel degenerative disc space narrowing. There is spurring of the endplates. The bony pelvis appears intact. IMPRESSION: Mild cardiomegaly. Atherosclerotic vascular disease. Mild scarring and atelectasis at the lung bases. Cholelithiasis. Normal appendix. No acute abnormality within the abdomen and pelvis. There is overall no adverse change compared to old exam.
--- NOTE | 2019-10-12 19:01 | HP ---
HISTORY AND PHYSICAL This patient is a 79-year-old white female with cellulitis of the right great toe after toenail extraction in the office. The toe is actually better than yesterday, but she still continues to have redness around the toe. X-ray shows no signs of osteomyelitis. She is admitted for some IV antibiotics and she is having abdominal pain in the left lower quadrant, right upper quadrant. She has missed her medicines for 2 days. She feels weak and fatigued, lethargic; unclear etiology. She has CRP of 137. A consult with Dr. Metz is pending as well as a CT scan of the abdomen and pelvis and a urine culture. We will restart her home medications and rehydrate her. She has elevated BUN and creatinine some dehydration. HOME MEDICATIONS: Home medications include: 1. Prednisone 10 mg daily. 2. Zocor 80 daily. 3. Prandin 1 mg before meals t.i.d. 4. Actos 15 daily. 5. [place] 5/325 q.8. 6. Neurontin 400 t.i.d. 7. Lasix 40 b.i.d. 8. Trulicity 1.5 mg subcutaneously once a week. 9. Vitamin D3 400 units daily. 10.Coreg 12.5 b.i.d. 11.She has been on Augmentin 875 mg one b.i.d. for the past one day. REVIEW OF SYSTEMS: Fourteen-point review of systems negative except for mentioned in HPI. Abdominal pain, weakness, fatigue. Her toe, as mentioned, still hurts to ambulate, but she is ambulating better. She is able to move it. The toe looks less red than yesterday. PHYSICAL EXAMINATION: Temperature is 98.8, pulse 85 to 92, respiratory rate 18 to 16, blood pressure 150s over 70s to 80s. Oxygenation is 95% to 98% on room air. CARDIOVASCULAR: S1, S2. LUNGS: Clear. GI: Some tenderness to palpation, right upper quadrant. Mild guarding in left lower quadrant. Abdomen is distended. INTEGUMENT: Right great toe is red, black. Silver nitrate over the great toe base. No pus or discharge. Redness is decreasing since yesterday. She is able to move it a little bit better than yesterday. CT abdomen and pelvis is pending. Urine culture is pending. ASSESSMENT: Cellulitis of the right great toe, diabetic cellulitis of the foot, acute abdominal pain. Do CT scan of the abdomen and pelvis. Urine culture. Infectious Disease consult. Continue home medications. Do baseline EKG and troponin. Please see further orders. MMODL / IJN: [id number] /
[2019-10-12 21:04] LABS: Glucose,Whole Blood 115 mg/dL (75-99)
[2019-10-12] MEDS: ATORVASTATIN 40 MG TAB PO SCH (22:02)
[2019-10-13] MEDS: PIPERACILLIN-TAZOBACTAM 3.375 GM in SODIUM CHLORIDE 0.9% 100 ML IVPB SCH ×2 (00:01→08:46)
[2019-10-13] MEDS: HYDROcodone/APAP 5-325MG 1 EACH TAB PO PRN (00:01)
[2019-10-13 06:25] LABS: Glucose,Whole Blood 132 mg/dL (75-99)
[2019-10-13 07:18] LABS: Basophils # (A) 0.1 k/uL (0-0.2); Basophils % (A) 1 %; Eosinophils # (A) 0.2 k/uL (0-0.7); Eosinophils % (A) 3 %; HCT 34.3 % (34.0-46.0); HGB 11.1 gm/dL (11.4-16.0); Lymphocytes % (A) 15 %; MCH 30.3 pg (25.0-35.0); MCHC 32.2 g/dL (31.0-37.0); Mean Platelet Volume 7.7; Monocytes # (A) 0.6 k/uL (0-1.0); Monocytes % (A) 8 %; Neutrophils # (A) 4.6 k/uL (1.3-7.7); Neutrophils % (A) 70 %; Platelet Count 278 k/uL (150-450); RBC 3.65 m/uL (3.80-5.40); RDW 13.2 % (11.5-15.5); WBC 6.7 k/uL (3.8-10.6)
[2019-10-13 07:28] LABS: Albumin 3.1 g/dL (3.5-5.0); Calcium 8.9 mg/dL (8.4-10.2); Potassium 3.5 mmol/L (3.5-5.1); Total Protein 5.6 g/dL (6.3-8.2)
[2019-10-13] MEDS: predniSONE 10 MG TAB PO SCH (08:46)
[2019-10-13] MEDS: FUROSEMIDE 40 MG TAB PO SCH ×2 (08:46→15:48)
[2019-10-13] MEDS: carvediloL 12.5 MG TAB PO SCH ×2 (08:46→17:13)
[2019-10-13] MEDS: GABAPENTIN 400 MG CAP PO SCH ×3 (08:46→21:04)
[2019-10-13] MEDS: REPAGLINIDE 1 MG TAB PO SCH ×3 (08:48→17:13)
[2019-10-13] MEDS: PIOGLITAZONE 15 MG TAB PO SCH (08:48)
[2019-10-13 11:36] LABS: Glucose,Whole Blood 244 mg/dL (75-99)
[2019-10-13] MEDS ORDERED: AMPICILLIN-SULBACTAM 3 GM in SODIUM CHLORIDE 0.9% 100 ML IVPB SCH (12:15)
[2019-10-13] MEDS: SODIUM CHLORIDE 0.9% 1,000 ML IV SCH (12:15)
--- NOTE | 2019-10-13 13:50 | P.GSCN ---
History of Present Illness Consult date: 10/13/19 Reason for Consult: Dr. Coon History of present illness: CHIEF COMPLAINT: Right upper quadrant pain HISTORY OF PRESENT ILLNESS: This is a 79-year-old female with a known history of diabetes, hyperlipidemia and hypertension. Patient has evidence of a right great toe cellulitis after toenail extraction in her PCPs office. And was brought into the hospital for IV antibiotics for her right great toe cellulitis. Yesterday she was complaining also of intermittent right upper quadrant abdominal pain. The pain is worse after eating. She denies any nausea or vomiting or change in bowel movements. She denies any fevers. Patient is no longer having any abdominal pain. PAST MEDICAL HISTORY: See list. PAST SURGICAL HISTORY: See list. MEDICATIONS: See list. ALLERGIES: See list. SOCIAL HISTORY: No illicit drug use. REVIEW OF SYSTEMS: CONSTITUTIONAL: Denies fever or chills. HEENT: Denies blurred vision, vision changes, or eye pain. Denies hemoptysis ENDOCRINE: Denies heat or cold intolerance. CARDIOVASCULAR: Denies chest pain or pressure. RESPIRATORY: No shortness of breath. GASTROINTESTINAL: Denies abdominal pain. Denies nausea or vomiting. NEURO: Denies history of seizures. PSYCH: No depression or suicidal ideation HEMATOLOGIC: Denies bleeding disorders. GENITOURINARY: Denies any blood in urine or increased urinary frequency. SKIN: Denies pruitis. Denies rash. PHYSICAL EXAM: VITAL SIGNS: Reviewed GENERAL: Well-developed in no acute distress. HEENT: No sclera icterus. Extraocular movements grossly intact. Moist buccal mucosa. Head is atraumatic, normocephalic. Hears conversational speech. No nasal drainage. ABDOMEN: Soft. Nondistended. Tenderness in right upper quadrant NEUROLOGIC: No focal or lateralizing signs. Cranial nerves II through XII grossly intact. LABORATORY DATA: LFTs within normal limits IMAGING: Computed tomography scan the abdomen and pelvis without contrast showing cholelithiasis. Normal appendix. No acute abnormality within the abdomen and pelvis. There is no overall adverse change compared to old exam ASSESSMENT: 1. Abdominal pain likely secondary to chronic cholecystitis. Pain has now improved. Patient is tolerating diet PLAN: No surgical intervention planned during this hospitalization. Patient will follow-up with Dr. Dr. Mariano for outpatient cholecystectomy once patient's toe cellulitis has improved. Thank you for this consultation. We will continue to follow along during patient's hospitalization. Physician Steward/Stewardess Wine note has been reviewed by physician. Signing provider agrees with the documented findings, assessment, and plan of care. Past Medical History Past Medical History: Diabetes Mellitus, Hyperlipidemia, Hypertension, Memory Impairment, Pneumonia History of Any Multi-Drug Resistant Organisms: None Reported Past Surgical History: Hysterectomy, Tonsillectomy Additional Past Surgical History / Comment(s): right leg vein stripping Past Anesthesia/Blood Transfusion Reactions: No Reported Reaction Past Psychological History: No Psychological Hx Reported Smoking Status: Former smoker Past Alcohol Use History: None Reported Additional Past Alcohol Use History / Comment(s): Quit smoking 7-8 yrs ago. Past Drug Use History: None Reported - Past Family History Father Family Medical History: No Reported History Mother Family Medical History: No Reported History Medications and Allergies Home Medications Medication Instructions Recorded Confirmed Type Simvastatin [Zocor] 80 mg PO HS 11/29/13 10/12/19 History predniSONE 10 mg PO DAILY 03/08/18 10/12/19 History Carvedilol [Coreg] 12.5 mg PO BID 08/12/18 10/12/19 History Cholecalciferol [Vitamin D3] 400 unit PO DAILY 12/01/18 10/12/19 History Dulaglutide [Trulicity] 1.5 mg SQ TH 09/02/19 10/12/19 History Gabapentin [Neurontin] 400 mg PO TID 09/02/19 10/12/19 History Pioglitazone [Actos] 15 mg PO DAILY 09/02/19 10/12/19 History Repaglinide [Prandin] 1 mg PO AC-TID 09/02/19 10/12/19 History Amoxic-Pot Clav 875-125Mg 1 tab PO Q12HR 10/12/19 10/12/19 History [Augmentin 875-125] Furosemide [Lasix] 40 mg PO BID 10/12/19 10/12/19 History HYDROcodone/APAP 5-325MG [[place] 1 tab PO Q8H PRN 10/12/19 10/12/19 History 5-325] Allergies Allergy/AdvReac Type Severity Reaction Status Date / Time No Known Allergies Allergy Verified 10/05/19 12:23 Surgical - Exam Vital Signs Temp Pulse Resp BP Pulse Ox 98.8 F 88 18 151/78 95 10/12/19 14:45 10/12/19 14:45 10/12/19 14:45 10/12/19 14:45 10/12/19 14:45 Results - Labs 10/13/19 06:31 10/13/19 06:28 Abnormal Lab Results - Last 24 Hours (Table) 10/12/19 10/12/19 10/12/19 Range/Units 15:56 15:56 17:23 RBC (3.80-5.40) m/uL Hgb (11.4-16.0) gm/dL ESR 101 H (0-20) mm/hr Carbon Dioxide (22-30) mmol/L BUN 32 H (7-17) mg/dL Creatinine 1.10 H (0.52-1.04) mg/dL Glucose 174 H (74-99) mg/dL POC Glucose (mg/dL) (75-99) mg/dL C-Reactive Protein 145.6 H (<10.0) mg/L Total Protein (6.3-8.2) g/dL Albumin (3.5-5.0) g/dL Urine Glucose (UA) Trace H (Negative) Ur Leukocyte Esterase Moderate H (Negative) Urine WBC 22 H (0-5) /hpf Urine Bacteria Rare H (None) /hpf Urine Mucus Rare H (None) /hpf 10/12/19 10/13/19 10/13/19 Range/Units 21:03 06:23 06:28 RBC (3.80-5.40) m/uL Hgb (11.4-16.0) gm/dL ESR (0-20) mm/hr Carbon Dioxide 31 H (22-30) mmol/L BUN 28 H (7-17) mg/dL Creatinine 1.45 H (0.52-1.04) mg/dL Glucose 128 H (74-99) mg/dL POC Glucose (mg/dL) 115 H 132 H (75-99) mg/dL C-Reactive Protein (<10.0) mg/L Total Protein 5.6 L (6.3-8.2) g/dL Albumin 3.1 L (3.5-5.0) g/dL Urine Glucose (UA) (Negative) Ur Leukocyte Esterase (Negative) Urine WBC (0-5) /hpf Urine Bacteria (None) /hpf Urine Mucus (None) /hpf 10/13/19 10/13/19 Range/Units 06:31 11:34 RBC 3.65 L (3.80-5.40) m/uL Hgb 11.1 L (11.4-16.0) gm/dL ESR (0-20) mm/hr Carbon Dioxide (22-30) mmol/L BUN (7-17) mg/dL Creatinine (0.52-1.04) mg/dL Glucose (74-99) mg/dL POC Glucose (mg/dL) 244 H (75-99) mg/dL C-Reactive Protein (<10.0) mg/L Total Protein (6.3-8.2) g/dL Albumin (3.5-5.0) g/dL Urine Glucose (UA) (Negative) Ur Leukocyte Esterase (Negative) Urine WBC (0-5) /hpf Urine Bacteria (None) /hpf Urine Mucus (None) /hpf Microbiology - Last 24 Hours (Table) 10/12/19 17:23 Urine Culture - Preliminary Urine,Voided Diabetes panel 10/12/19 10/13/19 Range/Units 15:56 06:28 Sodium 139 143 (137-145) mmol/L Potassium 4.1 3.5 (3.5-5.1) mmol/L Chloride 103 106 (98-107) mmol/L Carbon Dioxide 27 31 H (22-30) mmol/L BUN 32 H 28 H (7-17) mg/dL Creatinine 1.10 H 1.45 H (0.52-1.04) mg/dL Glucose 174 H 128 H (74-99) mg/dL Calcium 9.7 8.9 (8.4-10.2) mg/dL AST 36 22 (14-36) U/L ALT 18 14 (4-34) U/L Alkaline Phosphatase 64 69 (38-126) U/L Total Protein 6.5 5.6 L (6.3-8.2) g/dL Albumin 3.6 3.1 L (3.5-5.0) g/dL Calcium panel 10/12/19 10/13/19 Range/Units 15:56 06:28 Calcium 9.7 8.9 (8.4-10.2) mg/dL Albumin 3.6 3.1 L (3.5-5.0) g/dL Pituitary panel 10/12/19 10/13/19 Range/Units 15:56 06:28 Sodium 139 143 (137-145) mmol/L Potassium 4.1 3.5 (3.5-5.1) mmol/L Chloride 103 106 (98-107) mmol/L Carbon Dioxide 27 31 H (22-30) mmol/L BUN 32 H 28 H (7-17) mg/dL Creatinine 1.10 H 1.45 H (0.52-1.04) mg/dL Glucose 174 H 128 H (74-99) mg/dL Calcium 9.7 8.9 (8.4-10.2) mg/dL Adrenal panel 10/12/19 10/13/19 Range/Units 15:56 06:28 Sodium 139 143 (137-145) mmol/L Potassium 4.1 3.5 (3.5-5.1) mmol/L Chloride 103 106 (98-107) mmol/L Carbon Dioxide 27 31 H (22-30) mmol/L BUN 32 H 28 H (7-17) mg/dL Creatinine 1.10 H 1.45 H (0.52-1.04) mg/dL Glucose 174 H 128 H (74-99) mg/dL Calcium 9.7 8.9 (8.4-10.2) mg/dL Total Bilirubin 1.0 1.0 (0.2-1.3) mg/dL AST 36 22 (14-36) U/L ALT 18 14 (4-34) U/L Alkaline Phosphatase 64 69 (38-126) U/L Total Protein 6.5 5.6 L (6.3-8.2) g/dL Albumin 3.6 3.1 L (3.5-5.0) g/dL
[2019-10-13] MEDS ORDERED: ACETAMINOPHEN TAB 500 MG TAB PO PRN (15:35)
[2019-10-13 16:45] LABS: Glucose,Whole Blood 431 mg/dL (75-99)
[2019-10-13] MEDS: AMPICILLIN-SULBACTAM 3 GM in SODIUM CHLORIDE 0.9% 100 ML IVPB SCH (17:13)
[2019-10-13] MEDS: INSULIN ASPART (NovoLOG) 100 UNIT/ML VIAL SQ SCH ×2 (17:14→21:04)
[2019-10-13 20:48] LABS: Glucose,Whole Blood 241 mg/dL (75-99)
[2019-10-13] MEDS: ATORVASTATIN 40 MG TAB PO SCH (21:04)
--- NOTE | 2019-10-13 21:27 | P.CONS ---
History of Present Illness - Reason for Consult Consult date: 10/13/19 Right big toe cellulitis Requesting physician: Tu Coon - Chief Complaint Right big toe pain swelling redness x few days - History of Present Illness Patient is a 79-year-old female presented in outpatient setting for ingrowing toenail and the patient did have a extraction of the right big toenail, patient subsequently developing pain swelling and redness to the right big toe that has been going on for the last few days. Complaining of pain right big toe to be throbbing intensity 6-7 out of 10 and no radiation with associated swelling redness no significant purulent drainage patient did have some chills and did spike a fever of 101F in the hospital, patient did have x-rays of the right foot which did not show any bony sclerosis of ostial myelitis also complaining of some intermittent upper abdominal pain for the patient did have CT of abdominal pelvis did not show any acute abnormality patient was started on Zosyn she was admitted to the hospital for IV antibiotic therapy and infectious disease was consulted for further management of antibiotics Review of Systems Positive point has been mentioned in the HPI rest of the systems are negative Past Medical History Past Medical History: Diabetes Mellitus, Hyperlipidemia, Hypertension, Memory Impairment, Pneumonia History of Any Multi-Drug Resistant Organisms: None Reported Past Surgical History: Hysterectomy, Tonsillectomy Additional Past Surgical History / Comment(s): right leg vein stripping Past Anesthesia/Blood Transfusion Reactions: No Reported Reaction Past Psychological History: No Psychological Hx Reported Smoking Status: Former smoker Past Alcohol Use History: None Reported Additional Past Alcohol Use History / Comment(s): Quit smoking 7-8 yrs ago. Past Drug Use History: None Reported - Past Family History Father Family Medical History: No Reported History Mother Family Medical History: No Reported History Medications and Allergies Home Medications Medication Instructions Recorded Confirmed Type Simvastatin [Zocor] 80 mg PO HS 11/29/13 10/12/19 History predniSONE 10 mg PO DAILY 03/08/18 10/12/19 History Carvedilol [Coreg] 12.5 mg PO BID 08/12/18 10/12/19 History Cholecalciferol [Vitamin D3] 400 unit PO DAILY 12/01/18 10/12/19 History Dulaglutide [Trulicity] 1.5 mg SQ TH 09/02/19 10/12/19 History Gabapentin [Neurontin] 400 mg PO TID 09/02/19 10/12/19 History Pioglitazone [Actos] 15 mg PO DAILY 09/02/19 10/12/19 History Repaglinide [Prandin] 1 mg PO AC-TID 09/02/19 10/12/19 History Amoxic-Pot Clav 875-125Mg 1 tab PO Q12HR 10/12/19 10/12/19 History [Augmentin 875-125] Furosemide [Lasix] 40 mg PO BID 10/12/19 10/12/19 History HYDROcodone/APAP 5-325MG [[place] 1 tab PO Q8H PRN 10/12/19 10/12/19 History 5-325] Allergies Allergy/AdvReac Type Severity Reaction Status Date / Time No Known Allergies Allergy Verified 10/05/19 12:23 Physical Exam Vitals: Vital Signs Temp Pulse Pulse Resp BP Pulse Ox 10/13/19 08:59 98.7 F 64 14 180/80 90 L 10/13/19 03:00 98.2 F 87 18 141/56 93 L 10/12/19 21:00 98.2 F 100 20 156/78 94 L 10/12/19 15:00 98.0 F 85 18 152/86 98 10/12/19 14:45 98.8 F 88 18 151/78 95 Intake and Output 10/12/19 10/13/19 10/13/19 22:59 06:59 14:59 Other: Voiding Method Bedside Commode Bedside Commode Diaper Diaper # Voids 1 2 GENERAL DESCRIPTION: An elderly female lying in bed, no distress. No tachypnea or accessory muscle of respiration use. HEENT: Shows Pallor , no scleral icterus. Oral mucous membrane is dry. No pharyngeal erythema or thrush NECK: Trachea central, no thyromegaly. LUNGS: Unlabored breathing. Clear to auscultation anteriorly. No wheeze or crackle. HEART: S1, S2, regular rate and rhythm. No loud murmur ABDOMEN: Soft, no tenderness , guarding or rigidity, no organomegaly EXTREMITIES: No edema of feet. Right big toe diffuse swelling and redness minimal drainage on the dressing no foul-smelling SKIN: No rash, no masses palpable. NEUROLOGICAL: The patient is awake, alert, oriented x3, mood and affect normal. Results CBC & Chem 7: 10/13/19 06:31 10/13/19 06:28 Labs: Abnormal Lab Results - Last 24 Hours (Table) 10/12/19 10/12/19 10/12/19 Range/Units 15:56 15:56 17:23 RBC (3.80-5.40) m/uL Hgb (11.4-16.0) gm/dL ESR 101 H (0-20) mm/hr Carbon Dioxide (22-30) mmol/L BUN 32 H (7-17) mg/dL Creatinine 1.10 H (0.52-1.04) mg/dL Glucose 174 H (74-99) mg/dL POC Glucose (mg/dL) (75-99) mg/dL C-Reactive Protein 145.6 H (<10.0) mg/L Total Protein (6.3-8.2) g/dL Albumin (3.5-5.0) g/dL Urine Glucose (UA) Trace H (Negative) Ur Leukocyte Esterase Moderate H (Negative) Urine WBC 22 H (0-5) /hpf Urine Bacteria Rare H (None) /hpf Urine Mucus Rare H (None) /hpf 10/12/19 10/13/19 10/13/19 Range/Units 21:03 06:23 06:28 RBC (3.80-5.40) m/uL Hgb (11.4-16.0) gm/dL ESR (0-20) mm/hr Carbon Dioxide 31 H (22-30) mmol/L BUN 28 H (7-17) mg/dL Creatinine 1.45 H (0.52-1.04) mg/dL Glucose 128 H (74-99) mg/dL POC Glucose (mg/dL) 115 H 132 H (75-99) mg/dL C-Reactive Protein (<10.0) mg/L Total Protein 5.6 L (6.3-8.2) g/dL Albumin 3.1 L (3.5-5.0) g/dL Urine Glucose (UA) (Negative) Ur Leukocyte Esterase (Negative) Urine WBC (0-5) /hpf Urine Bacteria (None) /hpf Urine Mucus (None) /hpf 10/13/19 10/13/19 Range/Units 06:31 11:34 RBC 3.65 L (3.80-5.40) m/uL Hgb 11.1 L (11.4-16.0) gm/dL ESR (0-20) mm/hr Carbon Dioxide (22-30) mmol/L BUN (7-17) mg/dL Creatinine (0.52-1.04) mg/dL Glucose (74-99) mg/dL POC Glucose (mg/dL) 244 H (75-99) mg/dL C-Reactive Protein (<10.0) mg/L Total Protein (6.3-8.2) g/dL Albumin (3.5-5.0) g/dL Urine Glucose (UA) (Negative) Ur Leukocyte Esterase (Negative) Urine WBC (0-5) /hpf Urine Bacteria (None) /hpf Urine Mucus (None) /hpf Microbiology - Last 24 Hours (Table) 10/12/19 17:23 Urine Culture - Preliminary Urine,Voided Assessment and Plan Assessment: 1- patient with right big toe cellulitis in this patient who recently did have a right big toe nail extraction now with open wound and secondary cellulitis likely from gram-positive skin ana paula underlying pulmonary infection less likely would not entirely excluded (1) Cellulitis of right toe Current Visit: Yes Status: Acute Code(s): L03.031 - CELLULITIS OF RIGHT TOE SNOMED Code(s): 67941653 Plan: 1- discontinue Zosyn 2- start the patient Unasyn 3 g every 6 hours 3- local wound care to the right big toe wound with a dry Aquacel silver dressing followed by Kerlix changed every 48 hour We will follow on clinical condition and cultures to further adjust medication if needed Thank you for this consultation will follow this patient with you Time with Patient: Greater than 30
--- NOTE | 2019-10-13 23:05 | PN ---
PROGRESS NOTE This patient is a white female who was admitted with cellulitis of the great toe. Improving with IV antibiotics. She is able to move her toe more. Less redness. No fevers, no chills. X-ray of the foot showed no cellulitis. She just had some postoperative cellulitis around the foot. She has gallstones, right upper quadrant abdominal pain and a possible UTI. She is feeling better than when she was admitted. CARDIOVASCULAR: S1, S2. Lungs clear. GI soft. Hematology: Negative Homans. Integument: Right great toe swelling, redness, minimal drainage. Not foul-smelling. ASSESSMENT: 1. Right toe cellulitis. 2. Possible urinary tract infection. Continue with Unasyn. Possible discharge home tomorrow, as she is greatly improved. Urine culture -- waiting for that report. She is greatly improved. She will probably be able to be discharged home tomorrow if cleared by surgeon as far as gallbladder issues. MMODL / IJN: [id number] /
[2019-10-14] MEDS: HYDROcodone/APAP 5-325MG 1 EACH TAB PO PRN ×2 (03:37→21:18)
[2019-10-14] MEDS: AMPICILLIN-SULBACTAM 3 GM in SODIUM CHLORIDE 0.9% 100 ML IVPB SCH ×2 (05:56→17:10)
[2019-10-14 06:22] LABS: Glucose,Whole Blood 111 mg/dL (75-99)
[2019-10-14 07:18] LABS: Basophils % (A) 0 %; Eosinophils # (A) 0.2 k/uL (0-0.7); Eosinophils % (A) 2 %; HCT 31.3 % (34.0-46.0); HGB 9.9 gm/dL (11.4-16.0); Lymphocytes # (A) 1.2 k/uL (1.0-4.8); Lymphocytes % (A) 16 %; MCHC 31.6 g/dL (31.0-37.0); Mean Platelet Volume 7.5; Monocytes # (A) 0.6 k/uL (0-1.0); Monocytes % (A) 7 %; Neutrophils # (A) 5.7 k/uL (1.3-7.7); Neutrophils % (A) 73 %; Platelet Count 251 k/uL (150-450); RBC 3.29 m/uL (3.80-5.40); RDW 13.2 % (11.5-15.5); WBC 7.8 k/uL (3.8-10.6)
[2019-10-14 07:29] LABS: Albumin 2.7 g/dL (3.5-5.0); Calcium 8.3 mg/dL (8.4-10.2); Potassium 3.2 mmol/L (3.5-5.1); Total Bilirubin 0.6 mg/dL (0.2-1.3)
[2019-10-14] MEDS: INSULIN ASPART (NovoLOG) 100 UNIT/ML VIAL SQ SCH ×4 (08:56→22:07)
[2019-10-14] MEDS: REPAGLINIDE 1 MG TAB PO SCH ×3 (08:58→17:11)
[2019-10-14] MEDS: predniSONE 10 MG TAB PO SCH (08:59)
[2019-10-14] MEDS: GABAPENTIN 400 MG CAP PO SCH ×3 (08:59→21:19)
[2019-10-14] MEDS: FUROSEMIDE 40 MG TAB PO SCH ×2 (08:59→17:11)
[2019-10-14] MEDS: SODIUM CHLORIDE 0.9% 1,000 ML IV SCH (08:59)
[2019-10-14] MEDS: carvediloL 12.5 MG TAB PO SCH ×2 (08:59→17:11)
[2019-10-14] MEDS: PIOGLITAZONE 15 MG TAB PO SCH (09:00)
[2019-10-14] MEDS ORDERED: AMOXIC-POT CLAV 875-125MG 1 EACH TAB PO SCH (09:00)
[2019-10-14] MEDS ORDERED: Potassium Replacement Protocol 1 EACH MISC MISCELLANE PRN (09:12)
[2019-10-14] MEDS: POTASSIUM CHLORIDE ER 20 MEQ TAB.ER PO SCH ×2 (11:05→12:26)
--- NOTE | 2019-10-14 11:23 | P.PN ---
Subjective Progress Note Date: 10/14/19 CHIEF COMPLAINT: Right upper quadrant abdominal pain HISTORY OF PRESENT ILLNESS: Patient seen and examined with Dr. Mariano. She denies any abdominal pain. Denies any nausea or vomiting. Tolerating diet. She is afebrile. White count 7.8 PHYSICAL EXAM: VITAL SIGNS: Reviewed. GENERAL: Well-developed in no acute distress. HEENT: No sclera icterus. Extraocular movements grossly intact. Moist buccal mucosa. Head is atraumatic, normocephalic. ABDOMEN: Soft. Nondistended. Nontender. NEUROLOGIC: Alert and oriented. Cranial nerves II through XII grossly intact. ASSESSMENT: 1. Abdominal pain likely secondary to chronic cholecystitis. Pain has now improved. Patient is tolerating diet PLAN: No surgical intervention planned during this hospitalization. Patient will follow-up with Dr. Mariano for outpatient cholecystectomy once patient's toe cellulitis has improved. We'll have patient follow-up with Dr. Mariano in 1 week Physician Lockstitch Zipper Setter note has been reviewed by physician. Signing provider agrees with the documented findings, assessment, and plan of care. Objective - Vital Signs Vital signs: Vital Signs Temp 99.0 F 10/14/19 09:00 Pulse 66 10/14/19 09:00 Resp 14 10/14/19 09:00 BP 135/68 10/14/19 09:00 Pulse Ox 95 10/14/19 09:00 Intake & Output 10/13/19 10/14/19 10/14/19 18:59 06:59 18:59 Intake Total 220 480 Balance 220 480 Intake: Oral 120 480 Other 100 Other: Voiding Method Bedside Commode Diaper Incontinent # Voids 1 # Bowel Movements 1 - Labs CBC & Chem 7: 10/14/19 06:28 10/14/19 06:28 Labs: Abnormal Lab Results - Last 24 Hours (Table) 10/13/19 10/13/19 10/13/19 Range/Units 11:34 16:43 20:46 RBC (3.80-5.40) m/uL Hgb (11.4-16.0) gm/dL Hct (34.0-46.0) % Potassium (3.5-5.1) mmol/L BUN (7-17) mg/dL Creatinine (0.52-1.04) mg/dL POC Glucose (mg/dL) 244 H 431 H 241 H (75-99) mg/dL Calcium (8.4-10.2) mg/dL Total Protein (6.3-8.2) g/dL Albumin (3.5-5.0) g/dL 10/14/19 10/14/19 10/14/19 Range/Units 06:21 06:28 06:28 RBC 3.29 L (3.80-5.40) m/uL Hgb 9.9 L (11.4-16.0) gm/dL Hct 31.3 L (34.0-46.0) % Potassium 3.2 L (3.5-5.1) mmol/L BUN 28 H (7-17) mg/dL Creatinine 1.50 H (0.52-1.04) mg/dL POC Glucose (mg/dL) 111 H (75-99) mg/dL Calcium 8.3 L (8.4-10.2) mg/dL Total Protein 5.0 L (6.3-8.2) g/dL Albumin 2.7 L (3.5-5.0) g/dL Microbiology - Last 24 Hours (Table) 10/12/19 17:52 Blood Culture - Preliminary Blood No Growth after 24 hours 10/12/19 17:23 Urine Culture - Final Urine,Voided
[2019-10-14 11:29] LABS: Glucose,Whole Blood 192 mg/dL (75-99)
--- NOTE | 2019-10-14 12:03 | PN ---
PROGRESS NOTE DATE OF SERVICE: 10/14/2019 REASON FOR FOLLOWUP: Left big toe cellulitis. INTERVAL HISTORY: Patient is currently afebrile, she is breathing comfortably. Overall pain and discomfort to the left big toe has decreased. Denies any chest pain or cough. No abdominal pain, no diarrhea. PHYSICAL EXAMINATION: Blood pressure 135/68 with a pulse of 66, temperature 99, she is 95% on 2 L nasal cannula. General description is an elderly female, lying in bed in no distress. RESPIRATORY SYSTEM: Unlabored breathing. Examination of the left big toe swelling, redness has decreased. No drainage was noticed. LABS: Hemoglobin 9.8, white count 7.2, BUN of 28, creatinine 1.50. DIAGNOSTIC IMPRESSION AND PLAN: Patient with left big toe cellulitis, most recent removal of the toenail. The patient has clinically responded Unasyn. She had been kept on IV Zosyn for another 24 before transition to oral. However, the patient has been switched to p.o. by the attending physician. Local care to continue with Aquacel Silver dressing. No further recommendation. MMODL / IJN: [id number] /
[2019-10-14 16:28] LABS: Glucose,Whole Blood 269 mg/dL (75-99)
[2019-10-14] MEDS: COLCHICINE 0.6 MG EACH PO SCH (21:18)
[2019-10-14] MEDS: ATORVASTATIN 40 MG TAB PO SCH (21:19)
[2019-10-14 21:21] LABS: Glucose,Whole Blood 246 mg/dL (75-99)
[2019-10-14] MEDS ORDERED: MELATONIN 3 MG TABLET PO ONE (22:30)
--- NOTE | 2019-10-14 23:11 | PN ---
PROGRESS NOTE She has been kept another 24 hours for IV Unasyn and antibiotics. We treated for gout in the right toe after she has swelling at the MTP joint of the great toe on the left foot. She has a lot amount of swelling in her legs for which she will need some Lasix to get that off. She is told to elevate her legs. Continue with broad-spectrum antibiotics. We will do a dressing change. Sodium 143, potassium 3.2, BUN is 28, creatinine 1.50, glucose mid 100s to 200s, uric acid high at 8. ASSESSMENT: 1. Acute gout right MTP joint status post toe removal. 2. Some mild cellulitis of the foot. All Colcrys, start tonight and continue with IV antibiotics. Possible discharge home tomorrow. She has acute gout attack of the great toe of the left foot. MMODL / IJN: [id number] /
[2019-10-15] MEDS: POTASSIUM CHLORIDE ER 20 MEQ TAB.ER PO SCH ×2 (00:04→09:14)
[2019-10-15] MEDS: SODIUM CHLORIDE 0.9% 1,000 ML IV SCH (04:40)
[2019-10-15] MEDS: AMPICILLIN-SULBACTAM 3 GM in SODIUM CHLORIDE 0.9% 100 ML IVPB SCH (06:19)
[2019-10-15 06:32] LABS: Glucose,Whole Blood 77 mg/dL (75-99)
[2019-10-15 06:54] LABS: Basophils % (A) 0 %; Eosinophils # (A) 0.3 k/uL (0-0.7); Eosinophils % (A) 3 %; HCT 37.3 % (34.0-46.0); HGB 11.8 gm/dL (11.4-16.0); Hypochromasia Slight; Lymphocytes # (A) 1.5 k/uL (1.0-4.8); Lymphocytes % (A) 17 %; MCH 30.3 pg (25.0-35.0); MCHC 31.7 g/dL (31.0-37.0); MCV 95.4 fL (80.0-100.0); Mean Platelet Volume 7.5; Monocytes # (A) 0.5 k/uL (0-1.0); Monocytes % (A) 6 %; Neutrophils # (A) 6.3 k/uL (1.3-7.7); Neutrophils % (A) 72 %; Platelet Count 321 k/uL (150-450); RBC 3.91 m/uL (3.80-5.40); RDW 12.8 % (11.5-15.5); WBC 8.7 k/uL (3.8-10.6)
[2019-10-15 07:24] LABS: Albumin 3.6 g/dL (3.5-5.0); Calcium 8.9 mg/dL (8.4-10.2); Potassium 3.8 mmol/L (3.5-5.1); Total Bilirubin 0.6 mg/dL (0.2-1.3); Total Protein 6.4 g/dL (6.3-8.2)
[2019-10-15 07:52] LABS: Glucose,Whole Blood 117 mg/dL (75-99)
[2019-10-15] MEDS: INSULIN ASPART (NovoLOG) 100 UNIT/ML VIAL SQ SCH (07:53)
[2019-10-15] MEDS: REPAGLINIDE 1 MG TAB PO SCH (08:10)
[2019-10-15] MEDS: carvediloL 12.5 MG TAB PO SCH (08:10)
[2019-10-15] MEDS: FUROSEMIDE 40 MG TAB PO SCH (09:14)
[2019-10-15] MEDS: PIOGLITAZONE 15 MG TAB PO SCH (09:14)
[2019-10-15] MEDS: GABAPENTIN 400 MG CAP PO SCH (09:14)
[2019-10-15] MEDS: predniSONE 10 MG TAB PO SCH (09:14)
[2019-10-15] MEDS: COLCHICINE 0.6 MG EACH PO SCH (09:15)
[2019-10-15 10:12] VITALS: BP 117/68; PULSE 64; RESP 16; TEMP 97.4
--- NOTE | 2019-10-15 10:48 | P.PN ---
Subjective Progress Note Date: 10/15/19 CHIEF COMPLAINT: Right upper quadrant abdominal pain HISTORY OF PRESENT ILLNESS: Patient being followed for chronic cholecystitis. Patient denies any abdominal pain. Denies any nausea or vomiting. Tolerating regular diet. She is afebrile. White count 8.7 PHYSICAL EXAM: VITAL SIGNS: Reviewed. GENERAL: Well-developed in no acute distress. HEENT: No sclera icterus. Extraocular movements grossly intact. Moist buccal mucosa. Head is atraumatic, normocephalic. ABDOMEN: Soft. Nondistended. Nontender. NEUROLOGIC: Alert and oriented. Cranial nerves II through XII grossly intact. ASSESSMENT: 1. Abdominal pain likely secondary to chronic cholecystitis. Pain has now improved. Patient is tolerating diet PLAN: No surgical intervention planned during this hospitalization. Patient will follow-up with Dr. Mariano for outpatient cholecystectomy once patient's toe cellulitis has improved. We'll have patient follow-up with Dr. Mariano in 1 week Physician Activities Specialist note has been reviewed by physician. Signing provider agrees with the documented findings, assessment, and plan of care. Objective - Vital Signs Vital signs: Vital Signs Temp 97.4 F L 10/15/19 09:00 Pulse 64 10/15/19 09:00 Resp 16 10/15/19 09:00 BP 117/68 10/15/19 09:00 Pulse Ox 91 L 10/15/19 09:00 Intake & Output 10/14/19 10/15/19 10/15/19 18:59 06:59 18:59 Intake Total 1320 Balance 1320 Intake: Intake, IV Titration 600 Amount Sodium Chloride 0.9% 1, 600 000 ml @ 50 mls/hr IV . Q20H JENNY Rx#:[id number] Oral 720 Other: Voiding Method Bedside Commode Bedside Commode Diaper Diaper Incontinent Incontinent # Voids 2 - Labs CBC & Chem 7: 10/15/19 06:31 10/15/19 06:31 Labs: Abnormal Lab Results - Last 24 Hours (Table) 10/14/19 10/14/19 10/14/19 Range/Units 06:28 11:28 16:25 Carbon Dioxide (22-30) mmol/L BUN (7-17) mg/dL Creatinine (0.52-1.04) mg/dL Glucose (74-99) mg/dL POC Glucose (mg/dL) 192 H 269 H (75-99) mg/dL Uric Acid 8.0 H (3.7-7.4) mg/dL 10/14/19 10/15/19 10/15/19 Range/Units 21:17 06:31 07:41 Carbon Dioxide 31 H (22-30) mmol/L BUN 29 H (7-17) mg/dL Creatinine 1.42 H (0.52-1.04) mg/dL Glucose 72 L (74-99) mg/dL POC Glucose (mg/dL) 246 H 117 H (75-99) mg/dL Uric Acid (3.7-7.4) mg/dL Microbiology - Last 24 Hours (Table) 10/12/19 17:52 Blood Culture - Preliminary Blood No Growth after 48 hours
== END 2019-10-15 10:43 | disposition home health service (06) ==
LOC: UNDOADMOB 12:42 → 1SOBS 12:42
PROVIDERS: ADMIT Family Medicine; ATTEND Family Medicine
DX: L03.031 Cellulitis of right toe (principal); L03.115 Cellulitis of right lower limb; K80.10 Calculus of gallbladder with chronic cholecystitis without obstruction; M10.9 Gout, unspecified; E11.628 Type 2 diabetes mellitus with other skin complications; R10.32 Left lower quadrant pain; R10.11 Right upper quadrant pain; E78.5 Hyperlipidemia, unspecified; I10 Essential (primary) hypertension; R41.3 Other amnesia; Z20.828 Contact with and (suspected) exposure to other viral communicable diseases; Z79.52 Long term (current) use of systemic steroids; Z79.899 Other long term (current) drug therapy; Z79.84 Long term (current) use of oral hypoglycemic drugs; Z87.2 Personal history of diseases of the skin and subcutaneous tissue; Z98.890 Other specified postprocedural states; Z87.01 Personal history of pneumonia (recurrent); Z90.710 Acquired absence of both cervix and uterus; Z90.89 Acquired absence of other organs; Z87.891 Personal history of nicotine dependence
CPT/HCPCS: 93005; 96365; 96366 ×4; 96367; 80053 ×4; 85652; 84550; 84484; 85025 ×4; 86140; 81001; 87040; 87086; 73630; 74176; G0378 ×4; G0379; U0003; J2543 ×2; J0295 ×3; J7512 ×3

== ENCOUNTER 2019-10-20 12:42 | Observation (INO) | payer MEDICARE ==
[2019-10-20 13:38] LABS: Glucose,Whole Blood 128 mg/dL (75-99)
[2019-10-20] MEDS: FUROSEMIDE 10 MG/ML 4 ML VIAL IV SCH ×2 (13:44→21:17)
[2019-10-20] MEDS: PIPERACILLIN-TAZOBACTAM 3.375 GM in SODIUM CHLORIDE 0.9% 100 ML IVPB SCH ×2 (13:47→21:17)
[2019-10-20 14:27] LABS: Basophils # (A) 0.1 k/uL (0-0.2); Basophils % (A) 1 %; Eosinophils # (A) 0.3 k/uL (0-0.7); Eosinophils % (A) 3 %; HCT 34.8 % (34.0-46.0); HGB 11.2 gm/dL (11.4-16.0); Lymphocytes # (A) 1.4 k/uL (1.0-4.8); Lymphocytes % (A) 16 %; MCH 30.2 pg (25.0-35.0); MCHC 32.2 g/dL (31.0-37.0); MCV 93.8 fL (80.0-100.0); Mean Platelet Volume 7.6; Monocytes # (A) 0.7 k/uL (0-1.0); Monocytes % (A) 8 %; Neutrophils # (A) 6.5 k/uL (1.3-7.7); Neutrophils % (A) 71 %; Platelet Count 324 k/uL (150-450); RBC 3.71 m/uL (3.80-5.40); RDW 13.3 % (11.5-15.5); WBC 9.1 k/uL (3.8-10.6)
[2019-10-20] MEDS: COLCHICINE 0.6 MG EACH PO SCH (14:42)
[2019-10-20 14:47] LABS: Albumin 3.4 g/dL (3.5-5.0); Potassium 3.3 mmol/L (3.5-5.1); Total Bilirubin 0.6 mg/dL (0.2-1.3); Total Protein 5.9 g/dL (6.3-8.2)
--- NOTE | 2019-10-20 15:57 | XR ---
EXAMINATION TYPE: XR chest 1V portable DATE OF EXAM: 10/20/2019 Comparison: 12/01/2018 Clinical History: 79 year-old female COPD Findings: Heart mildly enlarged. Atherosclerotic arch calcifications. Mild patchy right basilar opacity. Upper and mid lungs appear clear. No sizable effusion. Mild hyperinflation. Chronic full-thickness rotator cuff tear left shoulder. Impression: Mild cardiomegaly and suspected underlying COPD. There is mild patchy atelectasis versus early infilt rate at the peripheral right base.
[2019-10-20 16:57] LABS: Glucose,Whole Blood 115 mg/dL (75-99)
[2019-10-20] MEDS ORDERED: ACETAMINOPHEN TAB 500 MG TAB PO PRN (20:35)
[2019-10-20 20:40] LABS: Glucose,Whole Blood 177 mg/dL (75-99)
[2019-10-20] MEDS ORDERED: Potassium Replacement Protocol 1 EACH MISC MISCELLANE PRN (20:41)
[2019-10-20] MEDS: ATORVASTATIN 40 MG TAB PO SCH (21:16)
[2019-10-20] MEDS: GABAPENTIN 400 MG CAP PO SCH (21:16)
[2019-10-20] MEDS: POTASSIUM CHLORIDE ER 20 MEQ TAB.ER PO SCH ×2 (21:16→22:35)
[2019-10-20] MEDS: carvediloL 12.5 MG TAB PO SCH (21:16)
[2019-10-20] MEDS: INSULIN ASPART (NovoLOG) 100 UNIT/ML VIAL SQ SCH (21:17)
[2019-10-20] MEDS: HYDROcodone/APAP 5-325MG 1 EACH TAB PO PRN (22:35)
[2019-10-21 02:14] LABS: Hemoglobin A1C 8.4 % (4.0-6.0)
[2019-10-21] MEDS: POTASSIUM CHLORIDE ER 20 MEQ TAB.ER PO SCH ×2 (04:30→05:57)
[2019-10-21 06:51] LABS: Glucose,Whole Blood 114 mg/dL (75-99)
[2019-10-21] MEDS: INSULIN ASPART (NovoLOG) 100 UNIT/ML VIAL SQ SCH ×4 (07:10→20:32)
[2019-10-21] MEDS: carvediloL 12.5 MG TAB PO SCH ×2 (07:15→17:02)
[2019-10-21] MEDS: GABAPENTIN 400 MG CAP PO SCH ×3 (07:15→23:16)
[2019-10-21] MEDS: REPAGLINIDE 1 MG TAB PO SCH ×3 (07:16→17:02)
[2019-10-21] MEDS: CHOLECALCIFEROL 400 UNIT TAB PO SCH (07:16)
[2019-10-21] MEDS: COLCHICINE 0.6 MG EACH PO SCH (07:17)
[2019-10-21] MEDS: PIOGLITAZONE 15 MG TAB PO SCH (07:17)
[2019-10-21] MEDS: FUROSEMIDE 10 MG/ML 4 ML VIAL IV SCH ×2 (07:17→20:33)
[2019-10-21] MEDS: PIPERACILLIN-TAZOBACTAM 3.375 GM in SODIUM CHLORIDE 0.9% 100 ML IVPB SCH ×2 (07:18→20:32)
[2019-10-21] MEDS: HYDROcodone/APAP 5-325MG 1 EACH TAB PO PRN ×2 (07:19→17:04)
[2019-10-21 08:02] LABS: Basophils # (A) 0.1 k/uL (0-0.2); Basophils % (A) 1 %; Eosinophils # (A) 0.4 k/uL (0-0.7); Eosinophils % (A) 5 %; HGB 11.4 gm/dL (11.4-16.0); Hypochromasia Slight; Lymphocytes # (A) 1.5 k/uL (1.0-4.8); Lymphocytes % (A) 22 %; MCH 29.3 pg (25.0-35.0); MCHC 30.8 g/dL (31.0-37.0); MCV 95.3 fL (80.0-100.0); Mean Platelet Volume 7.4; Monocytes # (A) 0.6 k/uL (0-1.0); Monocytes % (A) 9 %; Neutrophils # (A) 4.2 k/uL (1.3-7.7); Neutrophils % (A) 61 %; Platelet Count 328 k/uL (150-450); RBC 3.88 m/uL (3.80-5.40); RDW 13.3 % (11.5-15.5)
[2019-10-21 08:17] LABS: Albumin 3.4 g/dL (3.5-5.0); Calcium 8.7 mg/dL (8.4-10.2); Potassium 4.4 mmol/L (3.5-5.1); Total Bilirubin 0.7 mg/dL (0.2-1.3); Total Protein 6.1 g/dL (6.3-8.2)
[2019-10-21] MEDS ORDERED: COLCHICINE 0.6 MG PO SCH (09:00)
[2019-10-21 11:31] LABS: Glucose,Whole Blood 109 mg/dL (75-99)
[2019-10-21 16:47] LABS: Glucose,Whole Blood 159 mg/dL (75-99)
--- NOTE | 2019-10-21 17:28 | HP ---
HISTORY AND PHYSICAL A 79-year-old white female who was admitted with severe diastolic CHF with worsening swelling in her legs as well as erythema in her legs and cellulitis of her legs. She is not compliant with her antibiotics that she was sent home last week, did not take her antibiotics, did not take her colchicine for her gout, did not take oral antibiotics for cellulitis of her leg. Her legs are swollen like balloons. She says she went home. Daughter does not think she has taken any of her medicines. Chest x-ray shows COPD, possible infiltrate in the peripheral right base, started on IV antibiotics, IV Lasix. White count is normal. BUN is 28, creatinine is 1.49, CO2 is 33, glucose is mid 100s. Albumin 3.4. 14 POINT REVIEW OF SYSTEMS: Negative except for as mentioned in HPI. PAST MEDICAL HISTORY: Significant for hypertension, COPD, CHF, diastolic CHF, cellulitis of the legs, gout. PHYSICAL EXAM: Blood pressure is 116 to 130s/50s to 60s, O2 is 96 on 2 L, temperature 97.8, pulse is mid 80s, respiratory is 16 to 20. CARDIOVASCULAR: S1, S2. LUNGS: Rales at the bases. HEMATOLOGY: Shows 2 to 3+ pedal edema, bilaterally, cellulitis of the knee down bilateral legs, tenderness to palpation metatarsophalangeal joint of the great toes. Daughter says she has been noncompliant with the medications. ASSESSMENT: Acute diastolic CHF, acute on chronic diastolic CHF, COPD exacerbation, cellulitis of the legs down to the great toes, diabetes mellitus, hypertension, possible dementia starting with memory loss. Please see further orders. Continue with IV Lasix, IV antibiotics, and monitor for 24 hours. MMODL / IJN: [id number] /
[2019-10-21 20:16] LABS: Glucose,Whole Blood 114 mg/dL (75-99)
[2019-10-21] MEDS: ATORVASTATIN 40 MG TAB PO SCH (20:32)
[2019-10-22] MEDS: HYDROcodone/APAP 5-325MG 1 EACH TAB PO PRN (05:37)
[2019-10-22 06:48] LABS: Glucose,Whole Blood 110 mg/dL (75-99)
[2019-10-22] MEDS: INSULIN ASPART (NovoLOG) 100 UNIT/ML VIAL SQ SCH ×2 (07:09→11:47)
[2019-10-22] MEDS: PIOGLITAZONE 15 MG TAB PO SCH (07:13)
[2019-10-22] MEDS: GABAPENTIN 400 MG CAP PO SCH (07:13)
[2019-10-22] MEDS: COLCHICINE 0.6 MG EACH PO SCH (07:14)
[2019-10-22] MEDS: CHOLECALCIFEROL 400 UNIT TAB PO SCH (07:14)
[2019-10-22] MEDS: REPAGLINIDE 1 MG TAB PO SCH ×2 (07:14→11:47)
[2019-10-22] MEDS: PIPERACILLIN-TAZOBACTAM 3.375 GM in SODIUM CHLORIDE 0.9% 100 ML IVPB SCH (07:15)
[2019-10-22] MEDS: carvediloL 12.5 MG TAB PO SCH (07:15)
[2019-10-22] MEDS: FUROSEMIDE 10 MG/ML 4 ML VIAL IV SCH (07:15)
[2019-10-22 11:29] LABS: Glucose,Whole Blood 200 mg/dL (75-99)
--- NOTE | 2019-10-22 11:58 | ECHOF ---
Referral Reason:chf MEASUREMENTS -------- HEIGHT: 157.5 cm WEIGHT: 72.1 kg BP: 113/59 RVIDd: 2.8 cm (< 3.3) IVSd: 1.5 cm (0.6 - 1.1) LVIDd: 3.9 cm (3.9 - 5.3) LVPWd: 1.3 cm (0.6 - 1.1) IVSs: 1.7 cm LVIDs: 3.2 cm LVPWs: 1.6 cm LA Diam: 3.4 cm (2.7 - 3.8) LAESV Index (A-L): 21.27 ml/m Ao Diam: 3.0 cm (2.0 - 3.7) AV Cusp: 1.6 cm (1.5 - 2.6) MV EXCURSION: 16.144 mm (> 18.000) MV EF SLOPE: 22 mm/s (70 - 150) EPSS: 0.7 cm MV E Luis: 1.05 m/s MV DecT: 290 ms MV A Luis: 1.31 m/s MV E/A Ratio: 0.81 AR PHT: 773 ms RAP: 5.00 mmHg RVSP: 30.09 mmHg FINDINGS -------- Sinus rhythm. This was a technically good study. The left ventricular size is normal. There is moderate concentric left ventricular hypertrophy. O verall left ventricular systolic function is normal with, an EF between 60 - 65 %. The right ventricle is normal in size. Normal LA size by volume 22+/-6 ml/m2. The right atrium is normal in size. Interatrial and interventricular septum intact. There is mild aortic valve sclerosis. There is mild aortic regurgitation. Mild mitral regurgitation is present. Mild tricuspid regurgitation present. Right ventricular systolic pressure is normal at < 35 mmHg. Trace/mild (physiologic) pulmonic regurgitation. The aortic root size is normal. Normal inferior vena cava with normal inspiratory collapse consistent with estimated right atrial pre ssure of 5 mmHg. There is a trivial pericardial effusion present. CONCLUSIONS -------- 1. The left ventricular size is normal. 2. There is moderate concentric left ventricular hypertrophy. 3. Overall left ventricular systolic function is normal with, an EF between 60 - 65 %. 4. There is mild aortic valve sclerosis. 5. There is mild aortic regurgitation. 6. Mild mitral regurgitation is present. 7. Mild tricuspid regurgitation present. 8. Trace/mild (physiologic) pulmonic regurgitation. 9. There is a trivial pericardial effusion present. [employer]OR: [employer]
[2019-10-22 14:32] VITALS: BP 127/60; PULSE 85; RESP 18; TEMP 97.7
--- NOTE | 2019-11-16 07:19 | DS ---
DISCHARGE SUMMARY DATE OF ADMISSION: 10/20/2019 DATE OF DISCHARGE: 10/22/2019 DISCHARGE MEDICATIONS: 1. Zocor 80 mg daily. 2. Prednisone 10 mg daily. 3. Coreg 12.5 b.i.d. 4. Vitamin D 400 units daily. 5. Actos 15 mg daily. 6. Prandin 1 mg a.c. t.i.d. 7. Neurontin 400 mg t.i.d. 8. Augmentin 875 q.12 hours. 9. Haughton 5/325 q.8. 10.Lasix 40 mg b.i.d. 11.Tylenol 500 q.6h p.r.n. 12.Trulicity 0.75 mg subcu weekly. 13.Colchicine 0.6 mg daily. The patient was admitted with diabetic wound infection of the leg. Given IV antibiotics, Zosyn, switched over to Augmentin on discharge. She was treated for gout with swelling and redness of the great toe, which improved her redness and swelling. She was stabilized from medical standpoint. Cleared by Infectious Disease at which time she was sent home in stable condition. Diabetic diet. Follow up as tolerated in a week. CONDITION: Stable. PROGNOSIS: Guarded. MMODL / IJN: [id number] /
== END 2019-10-22 15:15 | disposition home or self-care (01) ==
LOC: 4SSUR 13:01
PROVIDERS: ADMIT Family Medicine; ATTEND Family Medicine
DX: I11.0 Hypertensive heart disease with heart failure (principal); J44.1 Chronic obstructive pulmonary disease with (acute) exacerbation; I50.33 Acute on chronic diastolic (congestive) heart failure; I08.3 Combined rheumatic disorders of mitral, aortic and tricuspid valves; L03.116 Cellulitis of left lower limb; L03.115 Cellulitis of right lower limb; L03.032 Cellulitis of left toe; L03.031 Cellulitis of right toe; R41.3 Other amnesia; M10.9 Gout, unspecified; Z91.14 Patient's other noncompliance with medication regimen
CPT/HCPCS: 96376 ×3; 96365; 96366 ×3; 96375; 93306; 83880 ×2; 80053 ×2; 83605; 84132; 85025 ×2; 83036; 71045; G0378 ×3; G0379; J2543 ×3; J1940 ×3

== ENCOUNTER 2019-11-16 07:52 | Day surgery (SDC) | payer MEDICARE ==
[2019-11-11 09:38] VITALS: BMI 29.2
[~2019-11-16 07:52] MED LIST: LACTATED RINGERS 1,000 ML IV SCH
[2019-11-16 08:14] VITALS: TEMP 97.5
[2019-11-16 08:37] LABS: Glucose,Whole Blood 83 mg/dL (75-99)
[2019-11-16] MEDS ORDERED: methylPREDNISolone ACETATE 40 MG/ML 1 ML VIAL ONE (08:38)
[2019-11-16] MEDS ORDERED: MIDAZOLAM 2 MG/2 ML VIAL ONE (08:38)
[2019-11-16] MEDS ORDERED: ROPIVACAINE 5MG/ML 20ML VIAL ONE (08:38)
[2019-11-16] MEDS ORDERED: fentaNYL (PF) 50 MCG/ML 2 ML AMP ONE (08:38)
[2019-11-16] MEDS ORDERED: IV FLUID CONTINUATION 775 ML IV ONE (08:57)
--- NOTE | 2019-11-16 08:57 | P.PCN ---
Date of Procedure: 11/16/19 Procedure(s) Performed: Procedure= left sacroiliac joints steroid injection under fluoroscopy guidance (fluoroscopy image stored on file in the radiology Department ) Preoperative diagnosis= 1-left sacroiliac joint dysfunction 2-lumbar degenerative disc disease . Postoperative diagnosis=Same as preop Diagnosis . Complication = none Condition= stable Anesthesia= moderate sedation with intravenous Versed 1 mg , and fentanyl 50 micrograms . Indication for the procedure= patient complaining of low back pain , examination was positive for severe tenderness over the sacroiliac joints bilaterally and patient diagnosed with sacroiliitis, for this reason, she was good candidate for sacroiliac joint steroid injection. Description of the procedure= procedure risk and benefits discussed with the patient, including but not limited, risk of infection and bleeding, and ALLERGIC reaction to the medication and not complete pain relief and patient agreed with the preceding patient taken to the operating room, placed in prone position or standard monitors applied to the patient then after induction of anesthesia back prepped with chlorhexidine 3 times , Then the left sacroiliac joint steroid injection done under strict sterile technique local infiltration of the skin and subcu interstitial at the location of the left sacroiliac joint then a 22-gauge Quincke Needle advanced slowly under fluoroscopy time placed in the left sacroiliac joint, needle placement confirmed with AP and oblique and lateral view then after appropriate needle placement confirmed and after negative aspiration 0.5% Marcaine 3 mL and 40 mg of Depo-Medrol injected in the left sacroiliac joint after negative aspiration patient tolerated the procedure well that any complications and she will follow up in clinic 3 weeks
[2019-11-16 09:03] VITALS: RESP 16
--- NOTE | 2019-11-16 09:05 | FL ---
EXAMINATION TYPE: FL guided pain mgmt statistic DATE OF EXAM: 11/16/2019 CLINICAL HISTORY: Left sacroiliac joint pain. TECHNIQUE: Fluoroscopy. COMPARISON: None. FINDINGS: Fluoroscopic guidance was provided during pain relief procedure performed by Dr. Beltran . A total of 6 seconds of fluoroscopic time was utilized during the procedure and 1 spot image is ac quired. Single image acquired shows needle localization at level of the left sacroiliac joint inferi pio. IMPRESSION: As Above.
[2019-11-16 09:20] VITALS: BP 139/63; PULSE 54
[2019-11-16 09:28] LABS: Glucose,Whole Blood 90 mg/dL (75-99)
== END 2019-11-16 09:45 | disposition home or self-care (01) ==
LOC: ORPAIN 07:52
PROVIDERS: ATTEND Specialist
DX: M53.3 Sacrococcygeal disorders, not elsewhere classified (principal); M51.36 Other intervertebral disc degeneration, lumbar region; M46.1 Sacroiliitis, not elsewhere classified; E11.9 Type 2 diabetes mellitus without complications
CPT/HCPCS: J2250; J1030; J3010; J2795; G0260; 27096

== ENCOUNTER 2019-11-30 07:58 | Day surgery (SDC) | payer MEDICARE ==
[2019-11-30] MEDS ORDERED: LACTATED RINGERS 1,000 ML IV SCH (08:13)
[2019-11-30 08:22] VITALS: RESP 16; TEMP 97.5
[2019-11-30] MEDS ORDERED: LIDOCAINE 1% (10MG/ML) FOR IV START INTRADERMA ONE (08:50)
[2019-11-30 08:51] LABS: Glucose,Whole Blood 95 mg/dL (75-99)
[2019-11-30] MEDS ORDERED: IOPAMIDOL M200 10 ML VIAL ONE (08:54)
[2019-11-30] MEDS ORDERED: fentaNYL (PF) 50 MCG/ML 2 ML AMP ONE (08:54)
[2019-11-30] MEDS ORDERED: ROPIVACAINE 5MG/ML 20ML VIAL ONE (08:54)
[2019-11-30] MEDS ORDERED: TRIAMCINOLONE ACETONIDE 40 MG/ML 1 ML VIAL ONE (08:54)
[2019-11-30] MEDS ORDERED: MIDAZOLAM 2 MG/2 ML VIAL ONE (08:54)
--- NOTE | 2019-11-30 09:12 | P.PCN ---
Date of Procedure: 11/30/19 Description of Procedure: Procedure= left sacroiliac joints steroid injection under fluoroscopy guidance (fluoroscopy image stored on file in the radiology Department ) Preoperative diagnosis= 1-left sacroiliac joint dysfunction 2-lumbar degenerative disc disease . Postoperative diagnosis=Same as preop Diagnosis . Complication = none Condition= stable Anesthesia= moderate sedation with intravenous Versed and fentanyl. sedation time 7 min Indication for the procedure= patient complaining of low back pain , examination was positive for severe tenderness over the sacroiliac joints bilaterally and patient diagnosed with sacroiliitis, for this reason, she was good candidate for sacroiliac joint steroid injection. Description of the procedure= procedure risk and benefits discussed with the patient, including but not limited, risk of infection and bleeding, and ALLERGIC reaction to the medication and not complete pain relief and patient agreed with the preceding patient taken to the operating room, placed in prone position or standard monitors applied to the patient then after induction of anesthesia back prepped with chlorhexidine 3 times , Then the left sacroiliac joint steroid injection done under strict sterile technique local infiltration of the skin and subcu interstitial at the location of the left sacroiliac joint then a 22-gauge Quincke Needle advanced slowly under fluoroscopy time placed in the left sacroiliac joint, needle placement confirmed with AP and oblique and lateral view then after appropriate needle placement confirmed and after negative aspiration 0.5% ropivacaine 1 mL and 40 mg of Kenalog injected in the left sacroiliac joint after negative aspiration patient tolerated the procedure well that any complications and she will follow up in clinic 3 weeks
[2019-11-30] MEDS ORDERED: IV FLUID CONTINUATION 600 ML IV ONE (09:31)
[2019-11-30 09:32] LABS: Glucose,Whole Blood 100 mg/dL (75-99)
--- NOTE | 2019-11-30 09:39 | FL ---
Fluoroscopy INDICATION: Pain FINDINGS: Fluoroscopy time: 0.2 minutes Images obtained: 1. IMPRESSIONS: 1. Documentation of fluoroscopy.
[2019-11-30 09:41] VITALS: BP 148/70; PULSE 65
== END 2019-11-30 09:50 | disposition home or self-care (01) ==
LOC: ORPAIN 07:58
PROVIDERS: ATTEND Anesthesiology
DX: M53.3 Sacrococcygeal disorders, not elsewhere classified (principal); M51.36 Other intervertebral disc degeneration, lumbar region; M46.1 Sacroiliitis, not elsewhere classified; E11.9 Type 2 diabetes mellitus without complications
CPT/HCPCS: J2250; J3301; J3010; Q9966; J2795; G0260; 27096; 99152

== ENCOUNTER → 2019-12-16 | Outpatient (CLI) | payer MEDICARE ==
--- NOTE | 2019-12-16 13:21 | XR ---
EXAMINATION TYPE: XR Hip Bilateral Complete DATE OF EXAM: 12/16/2019 COMPARISON: None HISTORY: Bursitis TECHNIQUE: FINDINGS: Femoral head articulates with the acetabulum. There is some hyperostosis superior to the ri ght greater trochanter. Vascular calcification is present. There is mild narrowing of the bilateral joint spaces. No acute fractures or dislocations are evident . IMPRESSION: 1. Mild degenerative changes bilateral hips. 2. Some hyperostosis superior to the right greater trochanter.
== END | disposition home or self-care (01) ==
LOC: RADXRMAIN 09:21
PROVIDERS: ATTEND Family Medicine
DX: M16.0 Bilateral primary osteoarthritis of hip (principal); M85.88 Other specified disorders of bone density and structure, other site
CPT/HCPCS: 73521

== ENCOUNTER → 2019-12-20 | Outpatient (CLI) | payer MEDICARE ==
[2019-12-20 11:04] VITALS: BP 134/67; PULSE 82; RESP 20; TEMP 97.8
--- NOTE | 2019-12-20 11:29 | P.PN ---
Subjective Progress Note Date: 12/20/19 This is a 79-year-old lady with history of chronic lower back pain with radiation to the left lower extremity down to the left foot with numbness and tingling. The patient had lumbar epidural steroid injection which did not help her pain much however she did have a sacroiliac injection on the left side which helped her pain more. She does feel pain in both hips also and she had bilateral hip plain x-ray which showed only mild degenerative changes. The patient takes prednisone orally on a daily basis for history of arthritis and she does have history of diabetes. Patient denies new-onset weakness, bowel/bladder incontinence, or any other signs or symptoms of cauda equina syndrome. There are no signs of acute intoxication, and no indications of medication diversion or overuse. In addition to above, 13-point review of systems is also negative for chest p ain, shortness of breath, changes in vision, changes in hearing, new onset weakness, abdominal pain, diarrhea, extreme fatigue, malaise, fever, skin changes, homicidal or suicidal ideation, or bowel or bladder incontinence. Vital Signs: Reviewed in EMR Gen: AAOx3, NAD HEENT: PERRLA,hearing grossly normal Pulm: resp unlabored Neck: supple, trachea midline Neuro exam of the lower extremities: Decreased muscle strength to 4 out of 5 bilaterally in the lower extremities Positive tenderness around the left greater trochanter Neuro: CN II-XII grossly intact, Imaging: Reviewed in EMR/chart Assessment: Left lumbar radiculopathy Lumbar spondylosis without myelopathy Left greater trochanter bursitis Diabetes Chronic use of steroids Plan: 1. Explanation: Opioid and psychological risk scores were reviewed. Diagnoses, prognoses, and multiple treatment options including but not limited to physical therapy, interventional therapies, adjuvant medical therapies, narcotic medication therapies, and surgery were discussed with the patient and all questions were answered to the patient's satisfaction. 2. Opioid agreement: Signed with the patient and the patient is warned not to use opioids while driving or before driving and not to combine opioids with benzodiazepines or alcohol. 3. Counseling: The patient was counseled extensively on SMOKING CESSATION, BODY MASS INDEX, EXERCISE. Specifically, the patient was instructed regarding the importance of smoking cessation, obesity, and exercise in the context of both chronic pain and overall health. 4. Procedures: The patient may benefit from getting left greater trochanter bursa steroid injection however because of her history of diabetes and her recent steroid injections plus the daily dose of prednisone that she takes I prefer to hold off at this point on doing steroid injection. 5. Consultations: None 6. Investigations: None 7. Medications: None prescribed from our clinic 8. Disposition: Follow up in 4 weeks 9. Maps were reviewed and were appropriate. Objective - Vital Signs Vital signs: Vital Signs Temp 97.8 F 12/20/19 10:54 Pulse 82 12/20/19 10:54 Resp 20 12/20/19 10:54 BP 134/67 12/20/19 10:54 Pulse Ox 96 12/20/19 10:54
== END | disposition home or self-care (01) ==
LOC: PNWHC3 10:11
PROVIDERS: ATTEND Anesthesiology
DX: M47.26 Other spondylosis with radiculopathy, lumbar region (principal); M70.62 Trochanteric bursitis, left hip; Z79.52 Long term (current) use of systemic steroids
CPT/HCPCS: 99211

== ENCOUNTER 2020-02-17 10:13 | Inpatient (IN) | payer MEDICARE ==
[2020-02-17] MEDS ORDERED: SODIUM CHLORIDE 0.9% 1,000 ML IV ONE (10:18)
[2020-02-17] MEDS ORDERED: SODIUM CHLORIDE 0.9% 1,000 ML IV STA (10:18)
[2020-02-17 10:53] LABS: Basophils % (A) 1 %; Eosinophils # (A) 0.1 k/uL (0-0.7); Eosinophils % (A) 2 %; HCT 38.7 % (34.0-46.0); HGB 13.2 gm/dL (11.4-16.0); Lymphocytes # (A) 0.8 k/uL (1.0-4.8); Lymphocytes % (A) 10 %; MCH 31.1 pg (25.0-35.0); MCHC 34.1 g/dL (31.0-37.0); MCV 91.2 fL (80.0-100.0); Mean Platelet Volume 8.2; Monocytes # (A) 0.5 k/uL (0-1.0); Monocytes % (A) 6 %; Neutrophils # (A) 6.2 k/uL (1.3-7.7); Neutrophils % (A) 81 %; Platelet Count 192 k/uL (150-450); RBC 4.24 m/uL (3.80-5.40); RDW 13.2 % (11.5-15.5); WBC 7.7 k/uL (3.8-10.6)
[2020-02-17 11:13] LABS: Partial Thromboplastin Time 22.1 sec (22.0-30.0); Prothrombin Time 10.2 sec (9.0-12.0)
[2020-02-17 11:14] LABS: Albumin 3.4 g/dL (3.5-5.0); Potassium 3.5 mmol/L (3.5-5.1); Total Bilirubin 0.6 mg/dL (0.2-1.3); Total Protein 5.9 g/dL (6.3-8.2)
--- NOTE | 2020-02-17 11:14 | CT ---
EXAMINATION TYPE: CT brain wo con DATE OF EXAM: 02/17/2020 HISTORY: Altered mental status. CT DLP: 1113.4 mGycm. Automated Exposure Control for Dose Reduction was Utilized. TECHNIQUE: CT scan of the head is performed without contrast. COMPARISON: CT brain August 12, 2018. FINDINGS: There is no acute intracranial hemorrhage or midline shift identified. There is diffuse v entricular and sulcal prominence consistent with diffuse age-related cerebral atrophy. There is low- attenuation in the periventricular white matter consistent with chronic small vessel ischemic change. Low attenuation left parietal periventricular region axial image 37 similar to prior study. Low atte nuation higher right parietal region near image 43 redemonstrated may be slightly more prominent from prior study. The globes are intact and the visualized sinuses are clear. Vascular calcification dis horace internal carotid arteries bilaterally. IMPRESSION: No acute intracranial hemorrhage or midline shift. There is mild to moderate diffuse ag e-related cerebral atrophy and moderate to severe chronic small vessel ischemic change redemonstrated . 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 There is similar old infarct ri ght parietal lobe redemonstrated. A subacute on chronic component at this level cannot be excluded.
[2020-02-17 11:15] LABS: Magnesium 2.1 mg/dL (1.6-2.3)
--- NOTE | 2020-02-17 11:46 | XR ---
EXAMINATION TYPE: XR chest 2V DATE OF EXAM: 02/17/2020 COMPARISON: 10/20/2019 INDICATION: Altered mental status TECHNIQUE: Frontal and lateral views of the chest are obtained. FINDINGS: The heart size is likely prominent. The pulmonary vasculature is normal. Mild infiltrate may be at the right lung base. Correlate for subsegmental atelectasis. Posterior cost ophrenic angle blunting is present. Spondylosis within the thoracic spine. IMPRESSION: 1. Mild subsegmental atelectasis or infiltrate at the right lung base.
[2020-02-17 12:09] LABS: Appearance,Urine Cloudy (Clear); Bacteria,Urine Occasional /hpf; Bilirubin,Urine Negative (Negative); Blood,Urine Negative (Negative); Color,Urine Light Yellow; Glucose,Urine (UA) Negative (Negative); Ketones,Urine Negative (Negative); Leukocyte Esterase,Urine Large (Negative); Mucus,Urine Rare /hpf; Nitrite,Urine Negative (Negative); PH, Urine 6.5 (5.0-8.0); Protein,Urine Negative (Negative); RBC,Urine 2 /hpf (0-5); Specific Gravity,Urine 1.009 (1.001-1.035); Urobilinogen,Urine <2.0 mg/dL (<2.0); WBC,Urine 116 /hpf (0-5)
[2020-02-17 12:18] LABS: Amphetamine Screen,Urine Not Detected (NotDetected); Barbiturate Screen,Urine Not Detected (NotDetected); Benzodiazepines Screen,Urine Not Detected (NotDetected); Cocaine Screen,Urine Not Detected (NotDetected); Methadone Screen, Urine Not Detected (NotDetected); Opiate Screen,Urine Detected (NotDetected); Oxycodone Screen, Urine Not Detected (NotDetected); Phencyclidine Screen,Urine Not Detected (NotDetected); Tricyclic Antidepressant,Urine Not Detected (NotDetected); Urn Cannabinoid Scrn Not Detected (NotDetected)
[2020-02-17] MEDS ORDERED: cefTRIAXone IN SWFI 1,000 MG/10 ML SYRINGE IVP STA (13:47)
--- NOTE | 2020-02-17 14:22 | ED ---
General Adult HPI - General Chief complaint: Syncope Stated complaint: Syncope Time Seen by Provider: 02/17/20 10:13 Source: patient, EMS, RN notes reviewed Mode of arrival: EMS Limitations: no limitations - History of Present Illness Initial comments: 79-year-old female who was out feeding her ribs stay which he had a syncopal episode. She was brought in by EMS for evaluation she was altered initially upon arrival arrival and did respond he stated to fluids. No evidence of trauma no fevers chills nausea vomiting sweats no other history available - Related Data Home Medications Medication Instructions Recorded Confirmed Simvastatin [Zocor] 80 mg PO HS 11/29/13 02/17/20 predniSONE 10 mg PO DAILY 03/08/18 02/17/20 Carvedilol [Coreg] 12.5 mg PO BID 08/12/18 02/17/20 Pioglitazone [Actos] 15 mg PO DAILY 09/02/19 02/17/20 Repaglinide [Prandin] 1 mg PO AC-TID 09/02/19 02/17/20 Furosemide [Lasix] 40 mg PO TID 10/12/19 02/17/20 Colchicine 0.6 mg PO DAILY 10/20/19 02/17/20 Dulaglutide [Trulicity] 0.75 mg SQ TH 10/20/19 02/17/20 Gabapentin [Neurontin] 300 mg PO TID 02/17/20 02/17/20 HYDROcodone/APAP 7.5-325MG [[place] 1 tab PO BID 02/17/20 02/17/20 7.5-325] Allergies Allergy/AdvReac Type Severity Reaction Status Date / Time No Known Allergies Allergy Verified 02/17/20 13:52 Review of Systems ROS Statement: Those systems with pertinent positive or pertinent negative responses have been documented in the HPI. ROS Other: All systems not noted in ROS Statement are negative. Limitations: ROS unobtainable due to patients medical condition Past Medical History Past Medical History: Heart Failure, Diabetes Mellitus, Hyperlipidemia, Hypertension, Memory Impairment, Pneumonia Additional Past Medical History / Comment(s): hx cellulitis of michael legs, michael leg edema, gout, states recent "shot" in left knee for pain History of Any Multi-Drug Resistant Organisms: None Reported Past Surgical History: Hysterectomy, Tonsillectomy Additional Past Surgical History / Comment(s): right leg vein stripping, pain clinic procedure Past Anesthesia/Blood Transfusion Reactions: No Reported Reaction Past Psychological History: No Psychological Hx Reported Smoking Status: Former smoker Past Alcohol Use History: None Reported Past Drug Use History: None Reported - Past Family History Father Family Medical History: No Reported History Mother Family Medical History: No Reported History General Exam - General Exam Comments Initial Comments: Is a well-developed well-nourished awake though somewhat lethargic female Limitations: no limitations General appearance: alert, in no apparent distress Head exam: Present: atraumatic, normocephalic, normal inspection Eye exam: Present: normal appearance, PERRL, EOMI. Absent: scleral icterus, conjunctival injection, periorbital swelling ENT exam: Present: mucous membranes dry Neck exam: Present: normal inspection. Absent: tenderness, meningismus, lymph adenopathy Respiratory exam: Present: normal lung sounds bilaterally. Absent: respiratory distress, wheezes, rales, rhonchi, stridor Cardiovascular Exam: Present: normal rhythm, bradycardia, normal heart sounds. Absent: systolic murmur, diastolic murmur, rubs, gallop, clicks GI/Abdominal exam: Present: soft, normal bowel sounds. Absent: distended, tenderness, guarding, rebound, rigid Extremities exam: Present: normal inspection, full ROM, normal capillary refill. Absent: tenderness, pedal edema, joint swelling, calf tenderness Back exam: Present: normal inspection Neurological exam: Present: alert, oriented X3, CN II-XII intact Psychiatric exam: Present: normal affect, normal mood Skin exam: Present: warm, dry, intact, normal color. Absent: rash Course Vital Signs 02/17/20 02/17/20 02/17/20 10:19 10:21 11:17 Temperature 97.8 F Pulse Rate 49 L 54 L 79 Respiratory 18 16 18 Rate Blood Pressure 106/48 138/60 138/55 O2 Sat by Pulse 97 96 95 Oximetry - Reevaluation(s) Reevaluation #1: 02/17/20 14:24 I did reevaluate patient several occasions she is much more alert after IV fluids. EKG Findings - EKG Results: EKG: interpreted by WENDY, sinus rhythm (Sinus rhythm a 61. Interval to 16 QRS duration 84 QT/QTC 440/442 that exodeviation first-degree AV block no acute ST-T wave changes) Medical Decision Making - Medical Decision Making I did discuss findings with the patient and family member patient will be admitted she is much more responsive and awake and she was earlier today was negative for acute findings I discuss case with Dr. Coon the presentation appears to be consistent with dehydration pneumonia possible UTI - Lab Data Result diagrams: 02/17/20 10:19 02/17/20 10:19 Lab Results 02/17/20 02/17/20 02/17/20 Range/Units 10: 10: 10:19 WBC 7.7 (3.8-10.6) k/uL RBC 4.24 (3.80-5.40) m/uL Hgb 13.2 (11.4-16.0) gm/dL Hct 38.7 (34.0-46.0) % MCV 91.2 (80.0-100.0) fL MCH 31.1 (25.0-35.0) pg MCHC 34.1 (31.0-37.0) g/dL RDW 13.2 (11.5-15.5) % Plt Count 192 (150-450) k/uL MPV 8.2 Neutrophils % 81 % Lymphocytes % 10 % Monocytes % 6 % Eosinophils % 2 % Basophils % 1 % Neutrophils # 6.2 (1.3-7.7) k/uL Lymphocytes # 0.8 L (1.0-4.8) k/uL Monocytes # 0.5 (0-1.0) k/uL Eosinophils # 0.1 (0-0.7) k/uL Basophils # 0.0 (0-0.2) k/uL PT 10.2 (9.0-12.0) sec INR 1.0 (<1.2) APTT 22.1 (22.0-30.0) sec Sodium 140 (137-145) mmol/L Potassium 3.5 (3.5-5.1) mmol/L Chloride 105 (98-107) mmol/L Carbon Dioxide 29 (22-30) mmol/L Anion Gap 6 mmol/L BUN 24 H (7-17) mg/dL Creatinine 1.22 H (0.52-1.04) mg/dL Est GFR (CKD-EPI)AfAm 49 (>60 ml/min/1.73 sqM) Est GFR (CKD-EPI)NonAf 42 (>60 ml/min/1.73 sqM) Glucose 195 H (74-99) mg/dL Calcium 9.0 (8.4-10.2) mg/dL Magnesium 2.1 (1.6-2.3) mg/dL Total Bilirubin 0.6 (0.2-1.3) mg/dL AST 24 (14-36) U/L ALT 19 (4-34) U/L Alkaline Phosphatase 58 (38-126) U/L Ammonia (<30) umol/L Creatine Kinase 107 (30-135) U/L Troponin I (0.000-0.034) ng/mL Total Protein 5.9 L (6.3-8.2) g/dL Albumin 3.4 L (3.5-5.0) g/dL Urine Color Urine Appearance (Clear) Urine pH (5.0-8.0) Ur Specific [place] (1.001-1.035) Urine Protein (Negative) Urine Glucose (UA) (Negative) Urine Ketones (Negative) Urine Blood (Negative) Urine Nitrite (Negative) Urine Bilirubin (Negative) Urine Urobilinogen (<2.0) mg/dL Ur Leukocyte Esterase (Negative) Urine RBC (0-5) /hpf Urine WBC (0-5) /hpf Urine Bacteria (None) /hpf Urine Mucus (None) /hpf Urine Opiates Screen (NotDetected) Ur Oxycodone Screen (NotDetected) Urine Methadone Screen (NotDetected) Ur Propoxyphene Screen (NotDetected) Ur Barbiturates Screen (NotDetected) U Tricyclic Antidepress (NotDetected) Ur Phencyclidine Scrn (NotDetected) Ur Amphetamines Screen (NotDetected) U Methamphetamines Scrn (NotDetected) U Benzodiazepines Scrn (NotDetected) Urine Cocaine Screen (NotDetected) U Marijuana (THC) Screen (NotDetected) 02/17/20 02/17/20 02/17/20 Range/Units 10:19 10:19 11:38 WBC (3.8-10.6) k/uL RBC (3.80-5.40) m/uL Hgb (11.4-16.0) gm/dL Hct (34.0-46.0) % MCV (80.0-100.0) fL MCH (25.0-35.0) pg MCHC (31.0-37.0) g/dL RDW (11.5-15.5) % Plt Count (150-450) k/uL MPV Neutrophils % % Lymphocytes % % Monocytes % % Eosinophils % % Basophils % % Neutrophils # (1.3-7.7) k/uL Lymphocytes # (1.0-4.8) k/uL Monocytes # (0-1.0) k/uL Eosinophils # (0-0.7) k/uL Basophils # (0-0.2) k/uL PT (9.0-12.0) sec INR (<1.2) APTT (22.0-30.0) sec Sodium (137-145) mmol/L Potassium (3.5-5.1) mmol/L Chloride (98-107) mmol/L Carbon Dioxide (22-30) mmol/L Anion Gap mmol/L BUN (7-17) mg/dL Creatinine (0.52-1.04) mg/dL Est GFR (CKD-EPI)AfAm (>60 ml/min/1.73 sqM) Est GFR (CKD-EPI)NonAf (>60 ml/min/1.73 sqM) Glucose (74-99) mg/dL Calcium (8.4-10.2) mg/dL Magnesium (1.6-2.3) mg/dL Total Bilirubin (0.2-1.3) mg/dL AST (14-36) U/L ALT (4-34) U/L Alkaline Phosphatase (38-126) U/L Ammonia <9 (<30) umol/L Creatine Kinase (30-135) U/L Troponin I <0.012 (0.000-0.034) ng/mL Total Protein (6.3-8.2) g/dL Albumin (3.5-5.0) g/dL Urine Color Light Yellow Urine Appearance Cloudy H (Clear) Urine pH 6.5 (5.0-8.0) Ur Specific [place] 1.009 (1.001-1.035) Urine Protein Negative (Negative) Urine Glucose (UA) Negative (Negative) Urine Ketones Negative (Negative) Urine Blood Negative (Negative) Urine Nitrite Negative (Negative) Urine Bilirubin Negative (Negative) Urine Urobilinogen <2.0 (<2.0) mg/dL Ur Leukocyte Esterase Large H (Negative) Urine RBC 2 (0-5) /hpf Urine WBC 116 H (0-5) /hpf Urine Bacteria Occasional H (None) /hpf Urine Mucus Rare H (None) /hpf Urine Opiates Screen Detected H (NotDetected) Ur Oxycodone Screen Not Detected (NotDetected) Urine Methadone Screen Not Detected (NotDetected) Ur Propoxyphene Screen Not Detected (NotDetected) Ur Barbiturates Screen Not Detected (NotDetected) U Tricyclic Antidepress Not Detected (NotDetected) Ur Phencyclidine Scrn Not Detected (NotDetected) Ur Amphetamines Screen Not Detected (NotDetected) U Methamphetamines Scrn Not Detected (NotDetected) U Benzodiazepines Scrn Not Detected (NotDetected) Urine Cocaine Screen Not Detected (NotDetected) U Marijuana (THC) Screen Not Detected (NotDetected) - Radiology Data Radiology results: report reviewed (I did review the imaging there is evidence of right lower lobe infiltrate.), image reviewed Disposition Clinical Impression: Right lower lobe pneumonia, Syncope and collapse, Dehydration, Acute con fusional state Disposition: ADMITTED IP TO THIS [facility] Condition: Fair Referrals: Tu Coon MD [Primary Care Provider] - 1-2 days
[2020-02-17] MEDS ORDERED: PNEUMONIA PROTOCOL UTILIZED 1 EACH MISC PO PRN (14:28)
[2020-02-17] MEDS ORDERED: AZITHROMYCIN 500 MG in SODIUM CHLORIDE 0.9% 250 ML IVPB STA (14:28)
--- NOTE | 2020-02-17 14:28 | ED ---
Medical Decision Making - Lab Data Result diagrams: 02/17/20 10:19 02/17/20 10:19 Lab Results 02/17/20 02/17/20 02/17/20 Range/Units 10:19 10:19 10:19 WBC 7.7 (3.8-10.6) k/uL RBC 4.24 (3.80-5.40) m/uL Hgb 13.2 (11.4-16.0) gm/dL Hct 38.7 (34.0-46.0) % MCV 91.2 (80.0-100.0) fL MCH 31.1 (25.0-35.0) pg MCHC 34.1 (31.0-37.0) g/dL RDW 13.2 (11.5-15.5) % Plt Count 192 (150-450) k/uL MPV 8.2 Neutrophils % 81 % Lymphocytes % 10 % Monocytes % 6 % Eosinophils % 2 % Basophils % 1 % Neutrophils # 6.2 (1.3-7.7) k/uL Lymphocytes # 0.8 L (1.0-4.8) k/uL Monocytes # 0.5 (0-1.0) k/uL Eosinophils # 0.1 (0-0.7) k/uL Basophils # 0.0 (0-0.2) k/uL PT 10.2 (9.0-12.0) sec INR 1.0 (<1.2) APTT 22.1 (22.0-30.0) sec Sodium 140 (137-145) mmol/L Potassium 3.5 (3.5-5.1) mmol/L Chloride 105 (98-107) mmol/L Carbon Dioxide 29 (22-30) mmol/L Anion Gap 6 mmol/L BUN 24 H (7-17) mg/dL Creatinine 1.22 H (0.52-1.04) mg/dL Est GFR (CKD-EPI)AfAm 49 (>60 ml/min/1.73 sqM) Est GFR (CKD-EPI)NonAf 42 (>60 ml/min/1.73 sqM) Glucose 195 H (74-99) mg/dL Calcium 9.0 (8.4-10.2) mg/dL Magnesium 2.1 (1.6-2.3) mg/dL Total Bilirubin 0.6 (0.2-1.3) mg/dL AST 24 (14-36) U/L ALT 19 (4-34) U/L Alkaline Phosphatase 58 (38-126) U/L Ammonia (<30) umol/L Creatine Kinase 107 (30-135) U/L Troponin I (0.000-0.034) ng/mL Total Protein 5.9 L (6.3-8.2) g/dL Albumin 3.4 L (3.5-5.0) g/dL Urine Color Urine Appearance (Clear) Urine pH (5.0-8.0) Ur Specific [place] (1.001-1.035) Urine Protein (Negative) Urine Glucose (UA) (Negative) Urine Ketones (Negative) Urine Blood (Negative) Urine Nitrite (Negative) Urine Bilirubin (Negative) Urine Urobilinogen (<2.0) mg/dL Ur Leukocyte Esterase (Negative) Urine RBC (0-5) /hpf Urine WBC (0-5) /hpf Urine Bacteria (None) /hpf Urine Mucus (None) /hpf Urine Opiates Screen (NotDetected) Ur Oxycodone Screen (NotDetected) Urine Methadone Screen (NotDetected) Ur Propoxyphene Screen (NotDetected) Ur Barbiturates Screen (NotDetected) U Tricyclic Antidepress (NotDetected) Ur Phencyclidine Scrn (NotDetected) Ur Amphetamines Screen (NotDetected) U Methamphetamines Scrn (NotDetected) U Benzodiazepines Scrn (NotDetected) Urine Cocaine Screen (NotDetected) U Marijuana (THC) Screen (NotDetected) 02/17/20 02/17/20 02/17/20 Range/Units 10:19 10:19 11:38 WBC (3.8-10.6) k/uL RBC (3.80-5.40) m/uL Hgb (11.4-16.0) gm/dL Hct (34.0-46.0) % MCV (80.0-100.0) fL MCH (25.0-35.0) pg MCHC (31.0-37.0) g/dL RDW (11.5-15.5) % Plt Count (150-450) k/uL MPV Neutrophils % % Lymphocytes % % Monocytes % % Eosinophils % % Basophils % % Neutrophils # (1.3-7.7) k/uL Lymphocytes # (1.0-4.8) k/uL Monocytes # (0-1.0) k/uL Eosinophils # (0-0.7) k/uL Basophils # (0-0.2) k/uL PT (9.0-12.0) sec INR (<1.2) APTT (22.0-30.0) sec Sodium (137-145) mmol/L Potassium (3.5-5.1) mmol/L Chloride (98-107) mmol/L Carbon Dioxide (22-30) mmol/L Anion Gap mmol/L BUN (7-17) mg/dL Creatinine (0.52-1.04) mg/dL Est GFR (CKD-EPI)AfAm (>60 ml/min/1.73 sqM) Est GFR (CKD-EPI)NonAf (>60 ml/min/1.73 sqM) Glucose (74-99) mg/dL Calcium (8.4-10.2) mg/dL Magnesium (1.6-2.3) mg/dL Total Bilirubin (0.2-1.3) mg/dL AST (14-36) U/L ALT (4-34) U/L Alkaline Phosphatase (38-126) U/L Ammonia <9 (<30) umol/L Creatine Kinase (30-135) U/L Troponin I <0.012 (0.000-0.034) ng/mL Total Protein (6.3-8.2) g/dL Albumin (3.5-5.0) g/dL Urine Color Light Yellow Urine Appearance Cloudy H (Clear) Urine pH 6.5 (5.0-8.0) Ur Specific [place] 1.009 (1.001-1.035) Urine Protein Negative (Negative) Urine Glucose (UA) Negative (Negative) Urine Ketones Negative (Negative) Urine Blood Negative (Negative) Urine Nitrite Negative (Negative) Urine Bilirubin Negative (Negative) Urine Urobilinogen <2.0 (<2.0) mg/dL Ur Leukocyte Esterase Large H (Negative) Urine RBC 2 (0-5) /hpf Urine WBC 116 H (0-5) /hpf Urine Bacteria Occasional H (None) /hpf Urine Mucus Rare H (None) /hpf Urine Opiates Screen Detected H (NotDetected) Ur Oxycodone Screen Not Detected (NotDetected) Urine Methadone Screen Not Detected (NotDetected) Ur Propoxyphene Screen Not Detected (NotDetected) Ur Barbiturates Screen Not Detected (NotDetected) U Tricyclic Antidepress Not Detected (NotDetected) Ur Phencyclidine Scrn Not Detected (NotDetected) Ur Amphetamines Screen Not Detected (NotDetected) U Methamphetamines Scrn Not Detected (NotDetected) U Benzodiazepines Scrn Not Detected (NotDetected) Urine Cocaine Screen Not Detected (NotDetected) U Marijuana (THC) Screen Not Detected (NotDetected) Critical Care Time Critical Care Time: Yes Total Critical Care Time: 31 Critical Care Time: 31 minutes included initial presentation with history physical labs x-rays multiple reevaluation the patient to responsive therapy discussion with patient and family members discuss with the admitting physician admission orders documentation the above Disposition Clinical Impression: Right lower lobe pneumonia, Syncope and collapse, Dehydration, Acute confusional state Disposition: ADMITTED IP TO THIS [facility] Condition: Fair Referrals: Tu Coon MD [Primary Care Provider] - 1-2 days
[2020-02-17] MEDS ORDERED: DULAGLUTIDE 0.75 MG/0.5 ML SQ SCH (14:30)
[2020-02-17] MEDS: SODIUM CHLORIDE 0.9% 1,000 ML IV SCH (14:47)
[2020-02-17] MEDS: GABAPENTIN 300 MG CAP PO SCH ×2 (16:21→22:39)
[2020-02-17] MEDS: FUROSEMIDE 40 MG TAB PO SCH ×2 (16:21→22:39)
[2020-02-17 16:52] LABS: Glucose,Whole Blood 174 mg/dL (75-99)
[2020-02-17] MEDS: INSULIN ASPART (NovoLOG) 100 UNIT/ML VIAL SQ SCH ×2 (18:03→20:57)
[2020-02-17] MEDS: REPAGLINIDE 1 MG TAB PO SCH (18:04)
[2020-02-17 20:43] LABS: Glucose,Whole Blood 202 mg/dL (75-99)
[2020-02-17] MEDS: HYDROcodone/APAP 7.5-325MG 1 EACH TAB PO SCH (20:54)
[2020-02-17] MEDS: carvediloL 12.5 MG TAB PO SCH (20:54)
[2020-02-17] MEDS: ATORVASTATIN 40 MG TAB PO SCH (20:57)
[2020-02-18] MEDS: SODIUM CHLORIDE 0.9% 1,000 ML IV SCH ×2 (00:43→14:18)
[2020-02-18 07:09] LABS: Glucose,Whole Blood 125 mg/dL (75-99)
--- NOTE | 2020-02-18 07:10 | XR ---
EXAMINATION TYPE: XR chest 1V portable DATE OF EXAM: 02/18/2020 COMPARISON: 02/17/2020 INDICATION: Pneumonia TECHNIQUE: Single frontal view of the chest is obtained. FINDINGS: The heart size is enlarged. The pulmonary vasculature is normal. Minimal streak opacities at the left base are likely on the basis of atelectasis IMPRESSION: 1. Small amount of left basilar atelectasis
[2020-02-18] MEDS: INSULIN ASPART (NovoLOG) 100 UNIT/ML VIAL SQ SCH ×4 (08:11→21:12)
[2020-02-18] MEDS: GABAPENTIN 300 MG CAP PO SCH ×3 (08:44→21:12)
[2020-02-18] MEDS: predniSONE 10 MG TAB PO SCH (08:44)
[2020-02-18] MEDS: HYDROcodone/APAP 7.5-325MG 1 EACH TAB PO SCH ×2 (08:44→21:12)
[2020-02-18] MEDS: FUROSEMIDE 40 MG TAB PO SCH ×3 (08:44→21:12)
[2020-02-18] MEDS: COLCHICINE 0.6 MG EACH PO SCH (08:45)
[2020-02-18] MEDS: REPAGLINIDE 1 MG TAB PO SCH ×3 (08:45→17:51)
[2020-02-18] MEDS: carvediloL 12.5 MG TAB PO SCH ×2 (08:46→21:12)
[2020-02-18] MEDS: PIOGLITAZONE 15 MG TAB PO SCH (08:46)
--- NOTE | 2020-02-18 09:07 | CT ---
EXAMINATION TYPE: CT chest wo con DATE OF EXAM: 02/18/2020 COMPARISON: Radiograph same date HISTORY: 80-year-old female RLL pneumonia TECHNIQUE: Contiguous axial scanning of the chest without IV contrast. Coronal and sagittal reconstru ctions performed. CT DLP: 333 mGycm Automated exposure control for dose reduction was used. FINDINGS: Heart mildly enlarged without pericardial effusion. Three-vessel coronary artery calcifications are p resent. Ectatic ascending aorta 3.8 cm. Moderate atherosclerotic arch calcifications with conventional branch ing anatomy. Mildly enlarged 1.3 cm precarinal lymph node maintains its fatty hilum suggesting a benign etiology. Prominent dependent atelectasis at both lung bases. More patchy adjacent opacity at the posterior rig ht base. Band of atelectasis posterior left base. Biapical pleural parenchymal scarring. Mild centrilobular emphysema. Fusiform aneurysm of upper abdominal aorta 3.3 cm. Prominent ingested debris distending the stomach. Numerous calculi filling the gallbladder lumen. Most are very small, largest measures 1.8 cm. Tiny sp lenule. Bones: Degenerative changes left shoulder. DISH throughout the mid and lower thoracic spine. IMPRESSION: 1. COPD WITH MILD EMPHYSEMA. 2. MILD CARDIOMEGALY AND CAD WITH 3 VESSEL CORONARY ARTERY CALCIFICATIONS. 3. PATCHY POSTERIOR RIGHT BASILAR OPACITY COULD REPRESENT ATELECTASIS OR DEVELOPING PNEUMONIA. ADDITI ONAL BAND OF ATELECTASIS POSTERIOR LEFT BASE. 4. PROXIMAL ABDOMINAL AAA AT 3.3 CM. 5. CHOLELITHIASIS.
--- NOTE | 2020-02-18 09:33 | HP ---
HISTORY AND PHYSICAL DATE OF SERVICE: 02/17/2020 A 80-year-old white female who came to the hospital with a syncopal episode, generalized weakness with the legs just giving out on her. She was found to have community-acquired pneumonia and urosepsis on admission and she looks dehydrated, severely weak, fatigued. HOME MEDICATIONS: Zocor 80 daily, prednisone 10 daily, Coreg 12.5 b.i.d., Actos 15 daily, creatinine 1 mg a.c. t.i.d., Lasix 40 mg t.i.d., colchicine 0.6 mg daily, Trulicity 0.75 mg once a week, Neurontin 300 mg t.i.d., [place] 7.5 b.i.d. ALLERGIES: No known drug allergies. 14 POINT REVIEW OF SYSTEMS: As mentioned above, otherwise negative. PAST MEDICAL HISTORY: Heart failure, diabetes mellitus, dyslipidemia, hypertension, memory impairment, pneumonia, bilateral leg cellulitis. SURGICAL HISTORY: Hysterectomy, tonsillectomy. FAMILY HISTORY: Father negative. Mother negative. PHYSICAL EXAM: Pulse is 49-79, temperature 97.8, respiratory rate 16 to 18, blood pressure is 130s/60s, O2 is 95 to 97. CARDIOVASCULAR: S1, S2, GI: Soft, tender to palpation left lower quadrant. PSYCH: Fair mood and affect. NEUROLOGIC: Cranial nerves are intact. LUNGS: Scattered rhonchi, right middle lobe. HEMATOLOGY: Negative Homans. OPHTHALMOLOGIC: Pupils equal, round, reactive to light and accommodation. EKG sinus rhythm. ASSESSMENT: Community-acquired pneumonia, acute UTI with sepsis, dehydration, prerenal renal failure, acute tubular necrosis, generalized weakness, moderate protein calorie malnutrition. Prognosis guarded. Continue on Rocephin for UTI. Azithromycin for community-acquired pneumonia. Pulmonary consult. Infectious Disease consult. MMODL / IJN: [id number] /
[2020-02-18 10:55] LABS: Glucose,Whole Blood 210 mg/dL (75-99)
[2020-02-18 12:54] VITALS: BMI 29.2
--- NOTE | 2020-02-18 16:01 | P.CNPUL ---
History of Present Illness Consult date: 02/18/20 Reason for consult: dyspnea, cough, hypoxemia, pneumonia Chief complaint: Shortness of breath/pneumonia History of present illness: This is a 80-year-old female who has a syncopal episode brought into emergency department, her prior history significant for diabetes mellitus dyslipidemia and diastolic heart failure, she used to smoke heavily quit several years ago, her urine is cloudy with large leukocyte esterase trace, Paige virus PCR is negative, computed tomography scan of the head negative for acute changes ho wever old bilateral parietal lobe infarct was noted, chest x-ray significant for infiltrate in the right lower lobe, computed tomography scan of the chest negative for pulmonary embolism however cardiomegaly coronary calcification and right lower lobe pneumonia was seen, patient is currently treated with Rocephin along with Zithromax Review of Systems All systems: negative Past Medical History Past Medical History: Asthma, Heart Failure, COPD, CVA/TIA, Diabetes Mellitus, Hyperlipidemia, Hypertension, Memory Impairment, Osteoarthritis (OA), Pneumonia, Skin Disorder, Syncope Additional Past Medical History / Comment(s): NIDDM type II, neuropathy bilateral hands/legs/feet, past bilateral lower leg cellulitis/wound, bilateral lower leg edema at times, bronchitis, TIA x 2, occasional low back pain, chronic L leg pain since fall approximately one year ago-pt states physician has run tests on leg but no answer why it is painful, L foot gout. History of Any Multi-Drug Resistant Organisms: None Reported Past Surgical History: Bladder Surgery, Hysterectomy, Tonsillectomy Additional Past Surgical History / Comment(s): Cystocele, R leg vein stripping, pain clinic procedures, bilateral cataract removals, colonoscopy, teeth extracted. Past Anesthesia/Blood Transfusion Reactions: No Reported Reaction, Motion Sickness Smoking Status: Former smoker - Past Family History Father Family Medical History: No Reported History Additional Family Medical History / Comment(s): Father was healthy. He lived to be 87yrs old. Mother Family Medical History: Diabetes Mellitus Additional Family Medical History / Comment(s): Mother of diabetic complications at the age of 61 yrs. Medications and Allergies Home Medications Medication Instructions Recorded Confirmed Type Simvastatin [Zocor] 80 mg PO HS 11/29/13 02/17/20 History predniSONE 10 mg PO DAILY 03/08/18 02/17/20 History Carvedilol [Coreg] 12.5 mg PO BID 08/12/18 02/17/20 History Pioglitazone [Actos] 15 mg PO DAILY 09/02/19 02/17/20 History Repaglinide [Prandin] 1 mg PO AC-TID 09/02/19 02/17/20 History Furosemide [Lasix] 40 mg PO TID 10/12/19 02/17/20 History Colchicine 0.6 mg PO DAILY 10/20/19 02/17/20 History Dulaglutide [Trulicity] 0.75 mg SQ TH 10/20/19 02/17/20 History Gabapentin [Neurontin] 300 mg PO TID 02/17/20 02/17/20 History HYDROcodone/APAP 7.5-325MG [[place] 1 tab PO BID 02/17/20 02/17/20 History 7.5-325] Allergies Allergy/AdvReac Type Severity Reaction Status Date / Time No Known Allergies Allergy Verified 02/17/20 13:52 Physical Exam Vitals: Vital Signs Temp Pulse Resp BP Pulse Ox 02/18/20 11:00 97.8 F 51 L 17 133/67 94 L 02/18/20 05:03 97.6 F 45 L 17 109/51 91 L 02/18/20 02:55 97.9 F 60 130/65 97 02/17/20 19:37 97.5 F L 64 157/67 99 02/17/20 19:20 64 02/17/20 17:12 97.9 F 55 L 17 146/66 99 02/17/20 16:56 95 Intake and Output 02/18/20 02/18/20 02/18/20 06:59 14:59 22:59 Intake Total 1450 Balance 1450 Intake: IV 1100 Sodium Chloride 0.9% 1, 1100 000 ml @ 100 mls/hr IV . Q10H [facility] Rx#:[id number] Oral 350 Other: Voiding Method Bedside Commode # Voids 3 Weight 72.575 kg - Constitutional General appearance: average body habitus, disheveled - EENT Eyes: EOMI, PERRLA Ears: bilateral: normal - Neck Neck: normal ROM - Respiratory Respiratory: bilateral: CTA - Cardiovascular Rhythm: regular Heart sounds: normal: S1, S2 - Gastrointestinal General gastrointestinal: normal bowel sounds, soft - Neurologic Neurologic: CNII-XII intact - Musculoskeletal Musculoskeletal: gait normal, generalized weakness, strength equal bilaterally - Psychiatric Psychiatric: A&O x's 3, appropriate affect, intact judgment & insight Results - Laboratory Findings CBC and BMP: 02/17/20 10:19 02/17/20 10:19 PT/INR, D-dimer PT 10.2 sec (9.0-12.0) 02/17/20 10:19 INR 1.0 (<1.2) 02/17/20 10:19 Abnormal lab findings: Abnormal Labs 02/17/20 02/17/20 02/17/20 10:19 10:19 11:38 Lymphocytes # 0.8 L BUN 24 H Creatinine 1.22 H Glucose 195 H POC Glucose (mg/dL) Total Protein 5.9 L Albumin 3.4 L Urine Appearance Cloudy H Ur Leukocyte Esterase Large H Urine WBC 116 H Urine Bacteria Occasional H Urine Mucus Rare H Urine Opiates Screen Detected H 02/17/20 02/17/20 02/18/20 16:51 20:42 07:07 Lymphocytes # BUN Creatinine Glucose POC Glucose (mg/dL) 174 H 202 H 125 H Total Protein Albumin Urine Appearance Ur Leukocyte Esterase Urine WBC Urine Bacteria Urine Mucus Urine Opiates Screen 02/18/20 10:54 Lymphocytes # BUN Creatinine Glucose POC Glucose (mg/dL) 210 H Total Protein Albumin Urine Appearance Ur Leukocyte Esterase Urine WBC Urine Bacteria Urine Mucus Urine Opiates Screen - Diagnostic Findings Chest x-ray: report reviewed, image reviewed CT scan - chest: report reviewed, image reviewed (Finding as noted above) Assessment and Plan Assessment: Right lower lobe pneumonia Syncopal episode Urinary tract infection History of bilateral parietal lobe infarct Hypertension hypertensive cardiovascular disease Plan: Continue antibiotics Continue to monitor clinical course closely Further recommendations pending plan of care as per clinical response of the pa tient Time with Patient: Greater than 30
[2020-02-18] MEDS: AZITHROMYCIN 500 MG TAB PO SCH (16:10)
[2020-02-18 17:15] LABS: Glucose,Whole Blood 285 mg/dL (75-99)
[2020-02-18 20:46] LABS: Glucose,Whole Blood 192 mg/dL (75-99)
[2020-02-18] MEDS: ATORVASTATIN 40 MG TAB PO SCH (21:12)
[2020-02-19] MEDS: SODIUM CHLORIDE 0.9% 1,000 ML IV SCH ×4 (04:34→23:44)
[2020-02-19 07:03] LABS: Glucose,Whole Blood 111 mg/dL (75-99)
[2020-02-19] MEDS: INSULIN ASPART (NovoLOG) 100 UNIT/ML VIAL SQ SCH ×4 (07:39→20:50)
[2020-02-19] MEDS: predniSONE 10 MG TAB PO SCH (08:25)
[2020-02-19] MEDS: REPAGLINIDE 1 MG TAB PO SCH ×3 (08:25→18:01)
[2020-02-19] MEDS: GABAPENTIN 300 MG CAP PO SCH ×3 (08:25→20:49)
[2020-02-19] MEDS: FUROSEMIDE 40 MG TAB PO SCH ×3 (08:25→20:49)
[2020-02-19] MEDS: COLCHICINE 0.6 MG EACH PO SCH (08:26)
[2020-02-19] MEDS: HYDROcodone/APAP 7.5-325MG 1 EACH TAB PO SCH ×2 (08:27→20:49)
[2020-02-19] MEDS: PIOGLITAZONE 15 MG TAB PO SCH (08:27)
[2020-02-19] MEDS: carvediloL 12.5 MG TAB PO SCH ×2 (09:54→20:49)
--- NOTE | 2020-02-19 10:48 | P.PN ---
Subjective Progress Note Date: 02/19/20 Principal diagnosis: Right lower lobe pneumonia Syncopal episode Urinary tract infection History of bilateral parietal lobe infarct Hypertension hypertensive cardiovascular disease 02/19/2020, patient seen eval examined during the rounds labs reviewed medications reviewed care plan discussed mildly shortness of breath but however denies any chest pain cough congestion is improved, on room air saturation is 96%, This is a 80-year-old female who has a syncopal episode brought into emergency department, her prior history significant for diabetes mellitus dyslipidemia and diastolic heart failure, she used to smoke heavily quit several years ago, her urine is cloudy with large leukocyte esterase trace, Paige virus PCR is negative, computed tomography scan of the head negative for acute changes however old bilateral parietal lobe infarct was noted, chest x-ray significant for infiltrate in the right lower lobe, computed tomography scan of the chest negative for pulmonary embolism however cardiomegaly coronary calcification and right lower lobe pneumonia was seen, patient is currently treated with Rocephin along with Zithromax Objective - Vital Signs Vital signs: Vital Signs Temp 97.7 F 02/19/20 05:00 Pulse 69 02/19/20 08:39 Resp 18 02/19/20 05:00 BP 122/58 02/19/20 05:00 Pulse Ox 96 02/19/20 05:00 Intake & Output 02/18/20 02/19/20 02/19/20 18:59 06:59 18:59 Intake Total 1050 1200 Balance 1050 1200 Weight 72.575 kg Intake: IV 1000 1200 Sodium Chloride 0.9% 1, 1000 1200 000 ml @ 100 mls/hr IV . Q10H JENNY Rx#:[id number] Intake, IV Titration 50 Amount cefTRIAXone 2 gm In 50 Sodium Chloride 0.9% 50 ml @ 100 mls/hr IVPB Q24H JENNY Rx#:[id number] Other: Voiding Method Bedside Commode Bedside Commode # Voids 3 3 - Exam - Constitutional General appearance: average body habitus, disheveled - EENT Eyes: EOMI, PERRLA Ears: bilateral: normal - Neck Neck: normal ROM - Respiratory Respiratory: bilateral: CTA - Cardiovascular Rhythm: regular Heart sounds: normal: S1, S2 - Gastrointestinal General gastrointestinal: normal bowel sounds, soft - Neurologic Neurologic: CNII-XII intact - Musculoskeletal Musculoskeletal: gait normal, generalized weakness, strength equal bilaterally - Psychiatric Psychiatric: A&O x's 3, appropriate affect, intact judgment & insight - Labs CBC & Chem 7: 02/17/20 10:19 02/17/20 10:19 Labs: Abnormal Lab Results - Last 24 Hours (Table) 02/18/20 02/18/20 02/18/20 Range/Units 10:54 17:14 20:33 POC Glucose (mg/dL) 210 H 285 H 192 H (75-99) mg/dL 02/19/20 Range/Units 06:56 POC Glucose (mg/dL) 111 H (75-99) mg/dL Microbiology - Last 24 Hours (Table) 02/17/20 11:38 Urine Culture - Preliminary Urine,Voided Gram Neg Bacilli 02/17/20 14:30 Blood Culture - Preliminary Blood No Growth after 24 hours Assessment and Plan Assessment: Right lower lobe pneumonia Syncopal episode Urinary tract infection History of bilateral parietal lobe infarct Hypertension hypertensive cardiovascular disease Plan: Continue antibiotics, patient can be switched to oral Continue to monitor clinical course closely Further recommendations pending plan of care as per clinical response of the patient Agree with discharge planning follow-up in outpatient setting Time with Patient: Greater than 30
[2020-02-19 11:09] LABS: Glucose,Whole Blood 295 mg/dL (75-99)
[2020-02-19] MEDS: AZITHROMYCIN 500 MG TAB PO SCH (15:06)
--- NOTE | 2020-02-19 16:23 | PN ---
PROGRESS NOTE 30-year-old white female who was admitted with urosepsis. She had a CT scan that showed mildly enlarged heart. Three vessel coronary calcifications and atherosclerosis. Benign lymph node in the lung near the hilum. Mild COPD. Aneurysm about 3.3 cm. Numerous calculi in the gallbladder. She has COPD with mild emphysema on CAT scan. Cardiomegaly as mentioned above. Abdominal AAA at 3.3, gallstones, possible early pneumonia. She has been on broad-spectrum antibiotics, being treated for UTI with urosepsis. She states she is slowly getting better. Sugars have been in the mid 200s. Urine culture is gram-negative bacilli. Blood cultures negative growth for 24 hours. Awaiting for the culture and sensitivity for her to go home. Cardiovascular S1, S2. Lungs show scattered rhonchi and wheeze. Hematology: Negative Homans. Psych: Fair mood and affect. ASSESSMENT: 1. Urinary tract infection with sepsis. 2. Urosepsis. 3. Dehydration. 4. Prerenal renal insufficiency. 5. Probable community-acquired pneumonia. 6. Mild chronic obstructive pulmonary disease. 7. Syncopal episode secondary to right lower lobe pneumonia and urosepsis. 8. History of bilateral parietal occipital infarct. 9. Hypertensive cardiovascular disease. Further orders pending urine culture and clinical condition. MMODL / IJN: [id number] /
[2020-02-19 17:00] LABS: Glucose,Whole Blood 184 mg/dL (75-99)
--- NOTE | 2020-02-19 17:33 | US ---
EXAMINATION TYPE: US carotid duplex BILAT DATE OF EXAM: 02/19/2020 COMPARISON: US 2017 CLINICAL HISTORY: cva x 2. Syncope EXAM MEASUREMENTS: RIGHT: Peak Systolic Velocity (PSV) cm/sec ----- Right CCA: 53.1 ----- Right ICA: 89.0 ----- Right ECA: 79.2 ICA/CCA ratio: 1.7 RIGHT: End Diastole cm/sec ----- Right CCA: 0.0 ----- Right ICA: 18.3 ----- Right ECA: 0.0 LEFT: Peak Systolic Velocity (PSV) cm/sec ----- Left CCA: 44.5 ----- Left ICA: 99.1 ----- Left ECA: 102.5 ICA/CCA ratio: 2.2 LEFT: End Diastole cm/sec ----- Left CCA: 7.2 ----- Left ICA: 23.8 ----- Left ECA: 0.0 VERTEBRALS (direction of flow): Right Vertebral: Antegrade Left Vertebral: Antegrade Rhythm: Normal Bilateral intimal thickening, plaque bilateral CCA, bulb and proximal ICA without elevated velocities . The left ICA/CCA ratio 2.2 is borderline. IMPRESSION: No evidence of hemodynamically significant stenosis of the internal carotid arteries. Criteria for Assigning % of Stenosis / Diameter reduction (Estimation based on the indirect measurements of the internal carotid artery velocities (ICA PSV). 1. Normal (no stenosis)=ICA PSV < 125 cm/s: ratio < 2.0: ICA EDV<40 cm/s. 2. Less than 50% stenosis=ICA PSV < 125 cm/s: ratio < 2.0: ICA EDV<40 cm/s. 3. 50 to 69% stenosis=ICA PSV of 125 to 230 cm/s: ratio 2.0 ? 4.0: ICA EDV 40-100 cm/s. 4. Greater than 70% stenosis to near occlusion= ICA PSV > 230 cm/s: ratio > 4.0: ICA EDV > 100 cm/s. 5. Near occlusion= ICA PSV velocities may be low or undetectable: variable ratio and ICA EDV. 6. Total occlusion=unable to detect flow.
[2020-02-19 20:33] LABS: Glucose,Whole Blood 271 mg/dL (75-99)
[2020-02-19] MEDS: ATORVASTATIN 40 MG TAB PO SCH (20:49)
[2020-02-19 23:10] VITALS: RESP 17; TEMP 97.4
[2020-02-20 05:28] VITALS: BP 136/71; PULSE 56
[2020-02-20 06:58] LABS: Basophils % (A) 1 %; Eosinophils # (A) 0.1 k/uL (0-0.7); Eosinophils % (A) 1 %; HGB 14.5 gm/dL (11.4-16.0); Lymphocytes # (A) 1.5 k/uL (1.0-4.8); Lymphocytes % (A) 17 %; MCH 30.7 pg (25.0-35.0); MCV 93.1 fL (80.0-100.0); Mean Platelet Volume 8.5; Monocytes # (A) 0.5 k/uL (0-1.0); Monocytes % (A) 6 %; Neutrophils # (A) 6.7 k/uL (1.3-7.7); Neutrophils % (A) 74 %; Platelet Count 174 k/uL (150-450); RBC 4.72 m/uL (3.80-5.40); RDW 13.4 % (11.5-15.5)
[2020-02-20 07:08] LABS: Glucose,Whole Blood 122 mg/dL (75-99)
[2020-02-20] MEDS: INSULIN ASPART (NovoLOG) 100 UNIT/ML VIAL SQ SCH ×2 (07:21→12:09)
[2020-02-20] MEDS: carvediloL 12.5 MG TAB PO SCH (08:25)
[2020-02-20] MEDS: FUROSEMIDE 40 MG TAB PO SCH (08:25)
[2020-02-20] MEDS: COLCHICINE 0.6 MG EACH PO SCH (08:25)
[2020-02-20] MEDS: REPAGLINIDE 1 MG TAB PO SCH ×2 (08:25→12:09)
[2020-02-20] MEDS: GABAPENTIN 300 MG CAP PO SCH (08:25)
[2020-02-20] MEDS: HYDROcodone/APAP 7.5-325MG 1 EACH TAB PO SCH (08:25)
[2020-02-20] MEDS: PIOGLITAZONE 15 MG TAB PO SCH (08:25)
[2020-02-20] MEDS: predniSONE 10 MG TAB PO SCH (08:25)
[2020-02-20] MEDS ORDERED: LEVOFLOXACIN 500 MG TAB PO SCH (09:45)
[2020-02-20 10:18] LABS: African American GFR (CKD) 49.8 (60.0-200.0); Albumin 3.9 g/dL (3.80-4.90); Albumin/Globulin Ratio 2.29 (1.60-3.17); Anion Gap 8.7 mmol/L (4.00-12.00); BUN/Creat Ratio 18.33 Ratio (12.00-20.00); Carbon Dioxide 36.3 mmol/L (21.6-31.8); Globulin 1.7 g/dL (1.6-3.3); Non-African American GFR(CKD) 42.9 (60.0-200.0); Potassium 3.2 mmol/L (3.5-5.5); Total Bilirubin 0.4 mg/dL (0.2-1.2); Total Protein 5.6 g/dL (6.2-8.2)
--- NOTE | 2020-02-20 11:36 | P.PN ---
Subjective Progress Note Date: 02/20/20 Principal diagnosis: Right lower lobe pneumonia Syncopal episode E. coli Urinary tract infection History of bilateral parietal lobe infarct Hypertension hypertensive cardiovascular disease 02/20/2020, patient seen eval examined during the rounds labs reviewed medications reviewed, remains on room air saturation is 97% now afebrile, asymptomatic bradycardia is present, she underwent carotid duplex for syncopal workup no significant hemodynamic stenosis identified, urine culture positive for E. coli sensitive to Rocephin 02/19/2020, patient seen eval examined during the rounds labs reviewed medications reviewed care plan discussed mildly shortness of breath but however denies any chest pain cough congestion is improved, on room air saturation is 96%, This is a 80-year-old female who has a syncopal episode brought into emergency department, her prior history significant for diabetes mellitus dyslipidemia and diastolic heart failure, she used to smoke heavily quit several years ago, her urine is cloudy with large leukocyte esterase trace, Paige virus PCR is neg ative, computed tomography scan of the head negative for acute changes however old bilateral parietal lobe infarct was noted, chest x-ray significant for infiltrate in the right lower lobe, computed tomography scan of the chest negative for pulmonary embolism however cardiomegaly coronary calcification and right lower lobe pneumonia was seen, patient is currently treated with Rocephin along with Zithromax Objective - Vital Signs Vital signs: Vital Signs Temp 97.4 F L 02/20/20 05:00 Pulse 56 L 02/20/20 05:00 Resp 17 02/20/20 05:00 BP 136/71 02/20/20 05:00 Pulse Ox 97 02/20/20 05:00 Intake & Output 02/19/20 02/20/20 02/20/20 18:59 06:59 18:59 Intake Total 1175 Balance 1175 Weight 52 kg Intake: IV 1175 Sodium Chloride 0.9% 1, 1125 000 ml @ 100 mls/hr IV . Q10H JENNY Rx#:[id number] cefTRIAXone 2 gm In 50 Sodium Chloride 0.9% 50 ml @ 100 mls/hr IVPB Q24H JENNY Rx#:[id number] Other: Voiding Method Bedside Commode # Voids 1 4 - Exam - Constitutional General appearance: average body habitus, disheveled - EENT Eyes: EOMI, PERRLA Ears: bilateral: normal - Neck Neck: normal ROM - Respiratory Respiratory: bilateral: CTA - Cardiovascular Rhythm: regular Heart sounds: normal: S1, S2 - Gastrointestinal General gastrointestinal: normal bowel sounds, soft - Neurologic Neurologic: CNII-XII intact - Musculoskeletal Musculoskeletal: gait normal, generalized weakness, strength equal bilaterally - Psychiatric Psychiatric: A&O x's 3, appropriate affect, intact judgment & insight - Labs CBC & Chem 7: 02/20/20 06:36 02/20/20 06:36 Labs: Abnormal Lab Results - Last 24 Hours (Table) 02/19/20 02/19/20 02/20/20 Range/Units 16:56 20:31 06:36 Sodium 148 H (135-145) mmol/L Potassium 3.2 L (3.5-5.5) mmol/L Carbon Dioxide 36.3 H (21.6-31.8) mmol/L Est GFR (CKD-EPI)AfAm 49.8 L (60.0-200.0) Est GFR (CKD-EPI)NonAf 42.9 L (60.0-200.0) Glucose 138 H (70-110) mg/dL POC Glucose (mg/dL) 184 H 271 H (75-99) mg/dL Total Protein 5.6 L (6.2-8.2) g/dL 02/20/20 Range/Units 07:06 Sodium (135-145) mmol/L Potassium (3.5-5.5) mmol/L Carbon Dioxide (21.6-31.8) mmol/L Est GFR (CKD-EPI)AfAm (60.0-200.0) Est GFR (CKD-EPI)NonAf (60.0-200.0) Glucose (70-110) mg/dL POC Glucose (mg/dL) 122 H (75-99) mg/dL Total Protein (6.2-8.2) g/dL Microbiology - Last 24 Hours (Table) 02/17/20 11:38 Urine Culture - Final Urine,Voided Escherichia coli 02/17/20 14:30 Blood Culture - Preliminary Blood No Growth after 48 hours Assessment and Plan Assessment: Right lower lobe pneumonia Syncopal episode E. coli Urinary tract infection sensitive to Rocephin History of bilateral parietal lobe infarct Hypertension hypertensive cardiovascular disease Plan: Continue antibiotics, Continue to monitor clinical course closely Further recommendations pending plan of care as per clinical response of the patient Agree with discharge planning follow-up in outpatient setting
--- NOTE | 2020-02-20 11:50 | DS ---
DISCHARGE SUMMARY DISCHARGE DIAGNOSES: 1. Altered mental status. 2. Syncope. 3. Dehydration. 4. Right lower lobe pneumonia. 5. Urinary tract infection with sepsis. 6. Syncope and collapse. 7. Diabetes mellitus. 8. Dyslipidemia. 9. Prior cerebrovascular accident times two. DISCHARGE MEDICINES: Levaquin 500 mg daily for 7 days, Zocor 80 mg daily, prednisone 10 mg daily, carvedilol 12.5 b.i.d., Actos 50 mg daily, Prandin 1 mg a.c. t.i.d., Lasix 40 mg t.i.d., Trulicity 0.75 mg once a week, Colchicine 0.6 mg daily, Hertel 7.5 b.i.d., Neurontin 300 t.i.d. Follow up in office in a week. CONDITION: Stable. PROGNOSIS: Guarded. Ambulate as tolerated. HOSPITAL COURSE: Patient was admitted with right lower lobe pneumonia, UTI with sepsis, started on IV antibiotics. Azithromycin, Zosyn. Covid was ruled out. Patient sensitive to multiple antibiotics, sent home on oral Levaquin after IV antibiotics improved over the next couple days. She was stabilized and will be followed up as an outpatient next week. DISCHARGE DIET: Regular. Ambulate as tolerated. We will send home with nursing and PT for generalized weakness. MARLY / MARANDA: [id number] /
--- NOTE | 2020-02-22 08:11 | CDI ---
Documentation Clarification Form Date: 02/22/2020 08:08:00 AM From: Rosalva Oreilly Phone: Admit Date: 02/17/2020 02:28:00 PM Patient Name: Bárbara Manriquez Visit Number: [id number] Discharge Date: 02/20/2020 01:05:00 PM ATTENTION: The Clinical Documentation Specialists (CDI) and [facility] Coding Staff appreciate your assistance in clarifying documentation. Please respond to the clarification below the line at the bottom and electronically sign. The CDI & [facility] Coding staff will review the response and follow-up if needed. Please note: Queries are made part of the Legal Health Record. If you have any questions, please contact the author of this message via ITS. Dr. Tu Coon, Altered Mental Status was documented in the discharge summary. Per ED note- acute confusional state. History/Risk Factors: Heart failure, DM, HLD, HTN, Memory impairment, PNA Clinical Indicators: A 80-year-old white female who came to the hospital with a syncopal episode, generalized weakness with the legs just giving out on her. She was found to have community-acquired pneumonia and urosepsis on admission and she looks dehydrated, severely weak, fatigued. Labs: lymphocytes-0.8, BUN-4, Cr-1.22, TP-2.9, Albumin-3.4, Urine: Leukocyte Esterase-large, WBC-116, Bacteria-occasional, COVID negative Brain CT: No acute intracranial hemorrhage or midline shift. There is mild to moderate diffuse age-related cerebral atrophy and moderate to severe chronic small vessel ischemic change redemonstrated. 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 There is similar old infarct right parietal lobe redemonstrated. A subacute on chronic component at this level cannot be excluded. Treatment: IV fluids, IV antibiotics, In your professional opinion, please clarify the etiology of the Altered Mental Status, if known. Delirium (specify cause): Dementia (if know, specify Type and if with/without Behavioral Disturbance) Encephalopathy (specify Type and Underlying Medical Illness) Other condition (please specify) Unable to determine MTDD
--- NOTE | 2020-02-28 11:07 | CDI ---
Documentation Clarification Form Date: 02/22/2020 08:08:00 AM From: Rosalva Oreilly Phone: Please call Ghazal Torres at from 8-5pm for questions Admit Date: 02/17/2020 02:28:00 PM Patient Name: Bárbara Manriquez Visit Number: [id number] Discharge Date: 02/20/2020 01:05:00 PM ATTENTION: The Clinical Documentation Specialists (CDI) and [facility] Coding Staff appreciate your assistance in clarifying documentation. Please respond to the clarification below the line at the bottom and electronically sign. The CDI & [facility] Coding staff will review the response and follow-up if needed. Please note: Queries are made part of the Legal Health Record. If you have any questions, please contact the author of this message via ITS. Dr. Tu Coon, Altered Mental Status was documented in the discharge summary. Per ED note- acute confusional state. History/Risk Factors: Heart failure, DM, HLD, HTN, Memory impairment, PNA Clinical Indicators: A 80-year-old white female who came to the hospital with a syncopal episode, generalized weakness with the legs just giving out on her. She was found to have community-acquired pneumonia and urosepsis on admission and she looks dehydrated, severely weak, fatigued. Labs: lymphocytes-0.8, BUN-4, Cr-1.22, TP-2.9, Albumin-3.4, Urine: Leukocyte Esterase-large, WBC-116, Bacteria-occasional, COVID negative Brain CT: No acute intracranial hemorrhage or midline shift. There is mild to moderate diffuse age-related cerebral atrophy and moderate to severe chronic small vessel ischemic change redemonstrated. 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 There is similar old infarct right parietal lobe redemonstrated. A subacute on chronic component at this level cannot be excluded. Treatment: IV fluids, IV antibiotics, In your professional opinion, please clarify the etiology of the Altered Mental Status, if known. Delirium (specify cause): Dementia (if know, specify Type and if with/without Behavioral Disturbance) Encephalopathy (specify Type and Underlying Medical Illness) Other condition (please specify) Unable to determine MTDD
--- NOTE | 2020-03-01 18:03 | PN ---
PROGRESS NOTE ADDENDUM: Delirium secondary to infection and dehydration. MMODL / IJN: [id number] /
== END 2020-02-20 13:05 | disposition home health service (06) | DRG 871 ==
LOC: EC 10:13 → 6NMEDSUR 14:28
PROVIDERS: ADMIT Family Medicine; ATTEND Family Medicine
DX: A41.51 Sepsis due to Escherichia coli [E. coli] (principal); N17.0 Acute kidney failure with tubular necrosis; J18.9 Pneumonia, unspecified organism; E44.0 Moderate protein-calorie malnutrition; I50.32 Chronic diastolic (congestive) heart failure; N39.0 Urinary tract infection, site not specified; I11.0 Hypertensive heart disease with heart failure; E11.40 Type 2 diabetes mellitus with diabetic neuropathy, unspecified; J43.9 Emphysema, unspecified; I71.4 Abdominal aortic aneurysm, without rupture; E78.5 Hyperlipidemia, unspecified; E86.0 Dehydration; I44.0 Atrioventricular block, first degree; Z20.828 Contact with and (suspected) exposure to other viral communicable diseases; K80.20 Calculus of gallbladder without cholecystitis without obstruction; I25.10 Atherosclerotic heart disease of native coronary artery without angina pectoris; M10.9 Gout, unspecified; R09.02 Hypoxemia; G89.29 Other chronic pain; M54.5 Low back pain; Z68.21 Body mass index [BMI] 21.0-21.9, adult; M19.90 Unspecified osteoarthritis, unspecified site; Z79.84 Long term (current) use of oral hypoglycemic drugs; R41.0 Disorientation, unspecified; Z79.891 Long term (current) use of opiate analgesic; Z79.51 Long term (current) use of inhaled steroids; Z79.899 Other long term (current) drug therapy; Z87.891 Personal history of nicotine dependence; Z91.81 History of falling; Z87.01 Personal history of pneumonia (recurrent); Z86.19 Personal history of other infectious and parasitic diseases; Z90.710 Acquired absence of both cervix and uterus; Z90.89 Acquired absence of other organs; Z87.42 Personal history of other diseases of the female genital tract; Z86.73 Personal history of transient ischemic attack (TIA), and cerebral infarction without residual deficits; Z86.79 Personal history of other diseases of the circulatory system; Z98.42 Cataract extraction status, left eye; Z98.41 Cataract extraction status, right eye; Z98.818 Other dental procedure status; Z98.890 Other specified postprocedural states; Z71.3 Dietary counseling and surveillance; Z83.3 Family history of diabetes mellitus
CPT/HCPCS: 36415; 70450; 71045; 71046; 71250; 80053; 80306; 81001; 82140; 82550; 83735; 84484; 85025; 85610; 85730; 87040; 87077; 87086; 87186; 87635; 93005; 93880; 94760; 96361; 96365; 96375; 99285

== ENCOUNTER → 2020-02-23 | Outpatient (CLI) | payer MEDICARE ==
[2020-02-23 21:14] LABS: African American GFR (CKD) 35.2 (60.0-200.0); Anion Gap 7.1 mmol/L (4.00-12.00); Carbon Dioxide 33.9 mmol/L (21.6-31.8); Non-African American GFR(CKD) 30.3 (60.0-200.0); Potassium 3.4 mmol/L (3.5-5.5)
== END | disposition home or self-care (01) ==
LOC: LABWHC1 12:28
PROVIDERS: ATTEND Family Medicine
DX: N39.0 Urinary tract infection, site not specified (principal); I10 Essential (primary) hypertension; Z79.899 Other long term (current) drug therapy
CPT/HCPCS: 36415; 80051; 82565; 84520; 87086

== ENCOUNTER → 2020-03-02 | Outpatient (CLI) | payer MEDICARE ==
[2020-03-02 15:11] LABS: African American GFR (CKD) 41.3 (60.0-200.0); Anion Gap 8.5 mmol/L (4.00-12.00); Carbon Dioxide 32.5 mmol/L (21.6-31.8); Non-African American GFR(CKD) 35.6 (60.0-200.0); Potassium 4.3 mmol/L (3.5-5.5)
== END | disposition home or self-care (01) ==
LOC: LABWHC1 09:41
PROVIDERS: ATTEND Family Medicine
DX: I10 Essential (primary) hypertension (principal); B89 Unspecified parasitic disease
CPT/HCPCS: 36415; 80051; 82565; 84520; 87045; 87046

== ENCOUNTER 2020-07-26 14:03 | Inpatient (IN) | payer MEDICARE ==
[2020-07-26] MEDS ORDERED: SODIUM CHLORIDE 0.9% 500 ML 500 ML IV STA (14:58)
--- NOTE | 2020-07-26 15:00 | ED ---
General Adult HPI - General Chief complaint: Weakness Stated complaint: weakness Time Seen by Provider: 07/26/20 14:40 Source: patient, EMS, RN notes reviewed, old records reviewed Mode of arrival: EMS Limitations: physical limitation - History of Present Illness Initial comments: This is a 80-year-old female presents emergency Department with a past medical history significant for diabetes hypertension high cholesterol heart disease CVA. Patient comes in today stating that she is extremely weak and unable to ambulate today. Patient also complains of the left second toe infection. Patient states she's been on antibiotics for 4 days and is not improving. Patient denies any recent injury or trauma. Patient denies any fall. Patient states she felt like she might even pass out today. Patient denies any chest pain difficulty breathing or shortness of breath. Patient denies any recent fever chills or cough per patient denies headache patient denies numbness or focal weakness. Patient denies any abdominal pain patient denies nausea vomit ing diarrhea. - Related Data Home Medications Medication Instructions Recorded Confirmed Simvastatin [Zocor] 80 mg PO HS 11/29/13 07/26/20 Carvedilol [Coreg] 12.5 mg PO BID 08/12/18 07/26/20 Repaglinide [Prandin] 1 mg PO TID 09/02/19 07/26/20 Dulaglutide [Trulicity] 0.75 mg SQ FR 10/20/19 07/26/20 Gabapentin [Neurontin] 300 mg PO BID 02/17/20 07/26/20 Sulfamethox-Tmp 800-160Mg [Bactrim 1 tab PO BID 07/26/20 07/26/20 DS 800-160 mg] Allergies Allergy/AdvReac Type Severity Reaction Status Date / Time No Known Allergies Allergy Verified 07/26/20 16:16 Review of Systems ROS Statement: Those systems with pertinent positive or pertinent negative responses have been documented in the HPI. ROS Other: All systems not noted in ROS Statement are negative. Past Medical History Past Medical History: Asthma, Heart Failure, COPD, CVA/TIA, Diabetes Mellitus, Hyperlipidemia, Hypertension, Memory Impairment, Osteoarthritis (OA), Pneumonia, Skin Disorder, Syncope Additional Past Medical History / Comment(s): NIDDM type II, neuropathy bilateral hands/legs/feet, past bilateral lower leg cellulitis/wound, bilateral lower leg edema at times, bronchitis, TIA x 2, occasional low back pain, chronic L leg pain since fall approximately one year ago-pt states physician has run tests on leg but no answer why it is painful, L foot gout. History of Any Multi-Drug Resistant Organisms: None Reported Past Surgical History: Bladder Surgery, Hysterectomy, Tonsillectomy Additional Past Surgical History / Comment(s): Cystocele, R leg vein stripping, pain clinic procedures, bilateral cataract removals, colonoscopy, teeth extracted. Past Anesthesia/Blood Transfusion Reactions: No Reported Reaction, Motion Sickness Past Psychological History: Anxiety Smoking Status: Former smoker Past Alcohol Use History: None Reported Past Drug Use History: None Reported - Past Family History Father Family Medical History: No Reported History Additional Family Medical History / Comment(s): Father was healthy. He lived to be 87yrs old. Mother Family Medical History: Diabetes Mellitus Additional Family Medical History / Comment(s): Mother of diabetic complica tions at the age of 61 yrs. General Exam - General Exam Comments Initial Comments: GENERAL: Patient is well-developed and well-nourished. Patient is nontoxic and well- hydrated and is in mild distress. ENT: Neck is soft and supple. No significant lymphadenopathy is noted. Oropharynx is clear. Moist mucous membranes. Neck has full range of motion without eliciting any pain. EYES: The sclera were anicteric and conjunctiva were pink and moist. Extraocular movements were intact and pupils were equal round and reactive to light. Eyelids were unremarkable. PULMONARY: Unlabored respirations. Good breath sounds bilaterally. No audible rales rhonchi or wheezing was noted. CARDIOVASCULAR: There is a regular rate and rhythm without any murmurs gallops or rubs. ABDOMEN: Soft and nontender with normal bowel sounds. No palpable organomegaly was noted. There is no palpable pulsatile mass. SKIN: Patient's second left toe is very red consistent with cellulitis and tender. NEUROLOGIC: Patient is alert and oriented x3. Cranial nerves II through XII are grossly intact. Motor and sensory are also intact. Normal speech, volume and content. Symmetrical smile. MUSCULOSKELETAL: Normal extremities with adequate strength and full range of motion. LYMPHATICS: No significant lymphadenopathy is noted PSYCHIATRIC: Normal psychiatric evaluation. Limitations: physical limitation Course Vital Signs 07/26/20 14:39 Temperature 97.9 F Pulse Rate 64 Respiratory 18 Rate Blood Pressure 112/70 O2 Sat by Pulse 95 Oximetry Medical Decision Making - Medical Decision Making EKG shows sinus rhythm at a rate of 77 bpm MN interval is 246 QRS is 86 QT interval is 416 QTC is 470. Patient's EKG shows no ST segment elevation or depression. I will begin to reevaluate the patient she was still unable to ambulate on her own. Patient states she's much weaker than normal. I spoke with Dr. Coon he agreed to admit the patient admitted the patient wrote admitting orders - Lab Data Result diagrams: 07/26/20 15:12 07/26/20 15:12 Lab Results 07/26/20 07/26/20 07/26/20 Range/Units 15:12 15:12 15:12 WBC 6.2 (3.8-10.6) k/uL RBC 4.11 (3.80-5.40) m/uL Hgb 12.5 (11.4-16.0) gm/dL Hct 36.6 (34.0-46.0) % MCV 89.1 (80.0-100.0) fL MCH 30.5 (25.0-35.0) pg MCHC 34.2 (31.0-37.0) g/dL RDW 12.3 (11.5-15.5) % Plt Count 201 (150-450) k/uL MPV 7.9 Neutrophils % 66 % Lymphocytes % 19 % Monocytes % 9 % Eosinophils % 4 % Basophils % 0 % Neutrophils # 4.1 (1.3-7.7) k/uL Lymphocytes # 1.2 (1.0-4.8) k/uL Monocytes # 0.6 (0-1.0) k/uL Eosinophils # 0.3 (0-0.7) k/uL Basophils # 0.0 (0-0.2) k/uL PT 10.2 (9.0-12.0) sec INR 1.0 (<1.2) APTT 23.6 (22.0-30.0) sec Sodium (137-145) mmol/L Potassium (3.5-5.1) mmol/L Chloride (98-107) mmol/L Carbon Dioxide (22-30) mmol/L Anion Gap mmol/L BUN (7-17) mg/dL Creatinine (0.52-1.04) mg/dL Est GFR (CKD-EPI)AfAm (>60 ml/min/1.73 sqM) Est GFR (CKD-EPI)NonAf (>60 ml/min/1.73 sqM) Glucose (74-99) mg/dL Plasma Lactic Acid Alvin (0.7-2.0) mmol/L Calcium (8.4-10.2) mg/dL Magnesium (1.6-2.3) mg/dL Total Bilirubin (0.2-1.3) mg/dL AST (14-36) U/L ALT (4-34) U/L Alkaline Phosphatase (38-126) U/L Troponin I (0.000-0.034) ng/mL Total Protein (6.3-8.2) g/dL Albumin (3.5-5.0) g/dL Urine Color Light Yellow Urine Appearance Clear (Clear) Urine pH 6.5 (5.0-8.0) Ur Specific Garfield 1.006 (1.001-1.035) Urine Protein Negative (Negative) Urine Glucose (UA) Negative (Negative) Urine Ketones Negative (Negative) Urine Blood Negative (Negative) Urine Nitrite Negative (Negative) Urine Bilirubin Negative (Negative) Urine Urobilinogen <2.0 (<2.0) mg/dL Ur Leukocyte Esterase Negative (Negative) 07/26/20 07/26/20 07/26/20 Range/Units 15:12 15:12 15:12 WBC (3.8-10.6) k/uL RBC (3.80-5.40) m/uL Hgb (11.4-16.0) gm/dL Hct (34.0-46.0) % MCV (80.0-100.0) fL MCH (25.0-35.0) pg MCHC (31.0-37.0) g/dL RDW (11.5-15.5) % Plt Count (150-450) k/uL MPV Neutrophils % % Lymphocytes % % Monocytes % % Eosinophils % % Basophils % % Neutrophils # (1.3-7.7) k/uL Lymphocytes # (1.0-4.8) k/uL Monocytes # (0-1.0) k/uL Eosinophils # (0-0.7) k/uL Basophils # (0-0.2) k/uL PT (9.0-12.0) sec INR (<1.2) APTT (22.0-30.0) sec Sodium 140 (137-145) mmol/L Potassium 3.8 (3.5-5.1) mmol/L Chloride 106 (98-107) mmol/L Carbon Dioxide 27 (22-30) mmol/L Anion Gap 7 mmol/L BUN 22 H (7-17) mg/dL Creatinine 1.71 H (0.52-1.04) mg/dL Est GFR (CKD-EPI)AfAm 32 (>60 ml/min/1.73 sqM) Est GFR (CKD-EPI)NonAf 28 (>60 ml/min/1.73 sqM) Glucose 156 H (74-99) mg/dL Plasma Lactic Acid Alvin 1.2 (0.7-2.0) mmol/L Calcium 9.4 (8.4-10.2) mg/dL Magnesium 2.0 (1.6-2.3) mg/dL Total Bilirubin 0.5 (0.2-1.3) mg/dL AST 22 (14-36) U/L ALT 11 (4-34) U/L Alkaline Phosphatase 79 (38-126) U/L Troponin I <0.012 (0.000-0.034) ng/mL Total Protein 5.8 L (6.3-8.2) g/dL Albumin 3.5 (3.5-5.0) g/dL Urine Color Urine Appearance (Clear) Urine pH (5.0-8.0) Ur Specific Garfield (1.001-1.035) Urine Protein (Negative) Urine Glucose (UA) (Negative) Urine Ketones (Negative) Urine Blood (Negative) Urine Nitrite (Negative) Urine Bilirubin (Negative) Urine Urobilinogen (<2.0) mg/dL Ur Leukocyte Esterase (Negative) Disposition Clinical Impression: Cellulitis, toe, Generalized weakness Disposition: ADMITTED IP TO THIS [facility] Referrals: Tu Coon MD [Primary Care Provider] - 1-2 days Time of Disposition: 18:52
[2020-07-26 15:22] LABS: Basophils % (A) 0 %; Eosinophils # (A) 0.3 k/uL (0-0.7); Eosinophils % (A) 4 %; HCT 36.6 % (34.0-46.0); HGB 12.5 gm/dL (11.4-16.0); Lymphocytes # (A) 1.2 k/uL (1.0-4.8); Lymphocytes % (A) 19 %; MCH 30.5 pg (25.0-35.0); MCHC 34.2 g/dL (31.0-37.0); MCV 89.1 fL (80.0-100.0); Mean Platelet Volume 7.9; Monocytes # (A) 0.6 k/uL (0-1.0); Monocytes % (A) 9 %; Neutrophils # (A) 4.1 k/uL (1.3-7.7); Neutrophils % (A) 66 %; Platelet Count 201 k/uL (150-450); RBC 4.11 m/uL (3.80-5.40); RDW 12.3 % (11.5-15.5); WBC 6.2 k/uL (3.8-10.6)
[2020-07-26 15:35] LABS: Partial Thromboplastin Time 23.6 sec (22.0-30.0); Potassium 3.8 mmol/L (3.5-5.1); Prothrombin Time 10.2 sec (9.0-12.0)
[2020-07-26 15:36] LABS: Albumin 3.5 g/dL (3.5-5.0); Calcium 9.4 mg/dL (8.4-10.2); Total Bilirubin 0.5 mg/dL (0.2-1.3); Total Protein 5.8 g/dL (6.3-8.2)
--- NOTE | 2020-07-26 16:12 | XR ---
EXAMINATION TYPE: XR toes LT DATE OF EXAM: 07/26/2020 COMPARISON: 10/12/2019 HISTORY: Osteomyelitis TECHNIQUE: AP and lateral views of the toes were obtained FINDINGS: There there is diffuse narrowing of the DIP joints of the second through fifth digits. Mild hallux valgus deformity of the metacarpal phalangeal joint of the first digit. Mild hammertoe deform ities are seen. IMPRESSION: Multiple degenerative changes of the toes of the left foot mild hallux valgus deformity o f the metacarpal phalangeal joint of the first digit. Mild hammertoe deformities are seen.. No defini te evidence of fracture or dislocation of the toes of the left foot.
--- NOTE | 2020-07-26 16:13 | XR ---
EXAMINATION TYPE: XR chest 2V DATE OF EXAM: 07/26/2020 COMPARISON: 02/18/2020 HISTORY: Weakness TECHNIQUE: Frontal and lateral views of the chest are obtained. FINDINGS: Heart size is enlarged. Multiple overlying leads. Mild bibasilar airspace opacity suggesti ve of atelectasis or developing pneumonia with probable small pleural effusions. No pneumothorax. IMPRESSION: 1. Cardiomegaly. 2. Mild bibasilar airspace opacities suggestive of atelectasis or developing pneumonia. Probable smal l pleural effusions.
[2020-07-26 18:41] LABS: Appearance,Urine Clear (Clear); Bilirubin,Urine Negative (Negative); Blood,Urine Negative (Negative); Color,Urine Light Yellow; Glucose,Urine (UA) Negative (Negative); Ketones,Urine Negative (Negative); Leukocyte Esterase,Urine Negative (Negative); Nitrite,Urine Negative (Negative); PH, Urine 6.5 (5.0-8.0); Protein,Urine Negative (Negative); Specific Gravity,Urine 1.006 (1.001-1.035); Urobilinogen,Urine <2.0 mg/dL (<2.0)
[2020-07-26] MEDS ORDERED: SODIUM CHLORIDE 0.9% 1,000 ML IV ONE (18:52)
[2020-07-26] MEDS: AMPICILLIN-SULBACTAM 3 GM in SODIUM CHLORIDE 0.9% 100 ML IVPB SCH (20:28)
[2020-07-26 22:38] LABS: Glucose,Whole Blood 85 mg/dL (75-99)
[2020-07-27 00:06] LABS: Glucose,Whole Blood 145 mg/dL (75-99)
--- NOTE | 2020-07-27 00:13 | HP ---
HISTORY AND PHYSICAL This is a 80-year-old white female who was admitted, unable to move her legs, history of diabetes, hypertension, hypercholesterolemia, CVA extremely weak and unable to ambulate. Middle and 2nd toe, possibly infected. She has been on antibiotics 4 days without improvement. She feels that she might even pass out. She has no difficulty with chest pain, shortness of breath. No cough, fever or chills. No nausea, vomiting, diarrhea. Home medicines: Zocor 80 daily, Coreg 12.5 b.i.d. Prandin 1 mg t.i.d., Trulicity 0.75 mg once a week, Neurontin 300 mg b.i.d., Bactrim Double Strength b.i.d. ALLERGIES: No known drug allergies. REVIEW OF SYSTEMS: Fourteen-point review of systems negative except for mentioned in HPI. PAST MEDICAL HISTORY: Asthma, heart failure, COPD, CVA, TIA, diabetes mellitus, dyslipidemia, hypertension, memory impairment, osteoarthritis, skin disorder, pneumonia. SURGERIES: Bladder surgery, hysterectomy, tonsillectomy. FAMILY HISTORY: Mother diabetes mellitus. PHYSICAL EXAMINATION: Well-nourished, well-hydrated, white female in no acute distress. ENT: External ear canals within normal limits. Pupils equal, round, reactive to light and accommodation. LUNGS are clear. HEART S1, S2. ABDOMEN is soft, nontender. EXTREMITIES: 3 out of 5 strength bilaterally. Left 2nd toe red, consistent tender and swollen, and the left 2nd toe internal coin on inside of the foot. NEUROLOGIC: Cranial nerves appear to be intact except for leg weakness bilaterally. PSYCH: Fair mood and affect. Temperature 97.9, pulse 64, respiratory rate 16 to 18, blood pressure 112/70, O2 95. EKG sinus rhythm. LABORATORY DATA: Labs reviewed. BUN 22, creatinine 1.71. UA is negative. White count is normal. Troponins negative. ASSESSMENT: 1. Cellulitis of the foot/toe diabetic wound infection. 2. Generalized weakness, unable to move the legs. 3. Get Neurology and possibly lumbar epidural. 4. Treat with IV antibiotics. 5. PT/OT. MMODL / IJN: [id number] /
[2020-07-27] MEDS: AMPICILLIN-SULBACTAM 3 GM in SODIUM CHLORIDE 0.9% 100 ML IVPB SCH ×3 (00:29→11:59)
[2020-07-27 06:54] LABS: Glucose,Whole Blood 133 mg/dL (75-99)
[2020-07-27] MEDS: GABAPENTIN 300 MG CAP PO SCH (07:39)
[2020-07-27] MEDS: REPAGLINIDE 1 MG TAB PO SCH ×3 (07:40→23:03)
[2020-07-27] MEDS: carvediloL 12.5 MG TAB PO SCH ×2 (07:40→23:03)
[2020-07-27 11:31] LABS: Glucose,Whole Blood 69 mg/dL (75-99)
[2020-07-27 11:48] LABS: Glucose,Whole Blood 97 mg/dL (75-99)
[2020-07-27] MEDS: HYDROcodone/APAP 5-325MG 1 EACH TAB PO PRN (12:03)
[2020-07-27 13:32] VITALS: BMI 27.4
--- NOTE | 2020-07-27 14:17 | CT ---
EXAMINATION TYPE: CT lumbar spine wo con DATE OF EXAM: 07/27/2020 COMPARISON: 12/02/2018 HISTORY: Generalized bilateral leg weakness. CT DLP: 1025.[address] of the lumbar spine was performed. Bone and soft tissue window settings are submitted as well as coronal and sagittal reconstructions. L1-L2: Mild degenerative disc space narrowing. Posterior disc bulge with partially encapsulating spur . No evidence for disc herniation protrusion or central stenosis. Mild facet joint arthropathy. Ventr al spondylosis. L2-L3: Mild degenerative disc space narrowing. Posterior disc bulge with partially encapsulating spur . No evidence for disc herniation protrusion or central stenosis. Mild facet joint arthropathy. Ventr al spondylosis. L3-L4: Mild degenerative disc space narrowing. Posterior disc bulge with partially encapsulating spur . No evidence for disc herniation protrusion or central stenosis. Mild facet joint arthropathy. Ventr al spondylosis. L4-L5: Moderate degenerative disc space narrowing. Grade 1 anterolisthesis unchanged from prior study . Anterolisthesis measures 4.4 mm. There is distortion of the thecal sac with moderate central stenos is. Severe facet arthropathy. Bilateral foraminal encroachment. L5-S1: Moderate disc desiccation. Posterior disc bulge with encapsulating spur. Effacement of the margie tral thecal sac with bilateral lateral recess stenosis left greater than right. No oh central sten osis. No paraspinal masses are identified. Lumbar segments are free if fracture. IMPRESSION: 1. Stable appearance of the lumbar spine multilevel degenerative disc disease and disc endplate compl ex. Moderate central stenosis L4-5 is unchanged. Bilateral lateral recess stenosis L5-S1 unchanged as well.
--- NOTE | 2020-07-27 15:15 | P.CNNES ---
History of Present Illness Consult date: 07/27/20 Requesting physician: Tu Coon Reason for Consult: Leg weakness History of Present Illness: Patient is a 80-year-old female came to the hospital by ambulance yesterday at 2 PM came for extremely weakness and unable to ambulate. Patient also complains of left second toe infection. Patient states that she came to the hospital because her feet are messed up for good one year. It hurts all the time. However when she walks on her feet, they hurt more. She would be standing for 5 minutes and the pain gets worse. Also legs gets weak. Also has numbness in the bottom of feet. She denies any low back pain at this time. Patient states that when she is in too much pain, then she passes out, for "a few seconds". As per EMS flow sheet when they arrived, patient was under care of the neighbors stating that she may have passed out. She thinks her blood sugar might be low. Capillary blood glucose was normal at that time. The neighbors has mentioned that patient was seemingly confused and typically experiences confusion and events of "passing out" when she has a bad UTI. Patient was alert and oriented 2, confused, unable to answer questions. While patient was being transferred to the ambulance, patient came unresponsive for approximately 15 seconds. She slumps to the right side, speech is garbled and inappropriately, then regains consciousness and speaks clearly. Patient's blood pressure was 150/98, pulse rate 81, respiration 18 saturation 97% temperature 98.5. Vital signs on arrival blood pressure 112/70, pulse rate 64 temperature 97.9. Blood test shows normal CBC, PT/PTT, electrolytes are normal, BUN 22, creatinine 1.71. Hepatic panel is normal. Troponin negative. UA negative, hsu virus PCR negative. Her previous rheumatoid factor, CCP, EMELYN, RPR are negative from 2019. B12 was 606 on 12/01/2018. Hemoglobin A1c 8.4 10/20/2019. Serum protein electrophoresis shows hypogammaglobinemia, although not seen in this study, a free light chain paraprotein cannot be excluded. Chest x-ray showed cardiomegaly. Mild bibasilar airspace opacities suggestive of atelectasis or developing pneumonia. Probable small pleural effusion. EKG shows sinus rhythm with marked sinus arrhythmia with first-degree AV block. Left axis deviation. Patient had an MRI of lumbar spine on 09/03/2019 which revealed degenerative first-degree L4 5 spondylolisthesis with severe L4 5 bony spinal stenosis related to facet arthropathy and subluxation deformity. No fracture. I reviewed the films, and agree with evidence of severe lumbar spinal stenosis at L4 5 level. 2-D echo from 10/22/2019 showed normal left-ventricular size, moderate concentric LVH, EF is 60-65%. Mild aortic valve sclerosis. Mild aortic regurgitation. Carotid Doppler from 02/29/2020 was normal. Antegrade flow in vertebral arteries. Patient has been seen by neurology Dr. Burkett on 12/02/2018 for bilateral lower extremity numbness. It was felt to be related to neuropathy from diabetes, confounded by lumbar radiculopathies and stenosis. She used to walk with a cane. Patient was on Lyrica and was switched to gabapentin by Dr. Burkett. Patient states that her daughter lives with her, she uses walker sometimes, also has a cane. She uses one of the gait assistive device most of the time. Patient states her hands also hurt a lot. She believes the hand pain is due to use of hands for getting up. She has diabetes for last 4-5 years. Denies any alcohol. She smoked 3 packs per day for 50 years, quit 7 years ago. She states her neck hurts now and then when it is becomes crooked on a pillow. No significant neck pain. Review of Systems As above in detail. Patient denies any chest pain, shortness of breath wheezing or cough. Denies any double vision loss of vision, hoarseness, sore throat, dysphagia. Denies any fever or chills. Past Medical History Past Medical History: Asthma, Heart Failure, COPD, CVA/TIA, Diabetes Mellitus, Hyperlipidemia, Hypertension, Memory Impairment, Osteoarthritis (OA), Pneumonia, Skin Disorder, Syncope Additional Past Medical History / Comment(s): NIDDM type II, neuropathy bi lateral hands/legs/feet, past bilateral lower leg cellulitis/wound, bilateral lower leg edema at times, bronchitis, TIA x 2, occasional low back pain, chronic L leg pain since fall approximately one year ago-pt states physician has run tests on leg but no answer why it is painful, L foot gout. History of Any Multi-Drug Resistant Organisms: None Reported Past Surgical History: Bladder Surgery, Hysterectomy, Tonsillectomy Additional Past Surgical History / Comment(s): Cystocele, R leg vein stripping, pain clinic procedures, bilateral cataract removals, colonoscopy, teeth extracted. Past Anesthesia/Blood Transfusion Reactions: No Reported Reaction, Motion Sickness Past Psychological History: Anxiety Additional Psychological History / Comment(s): Pt has an adult daughter who resides with her. Pt uses a cane or walker to ambulate. She states she has someone from [employer] who comes and sits with her sometimes. She has difficulty with showering. She drives [employer] her brady cane take her to appointments sometimes. Smoking Status: Former smoker Past Alcohol Use History: None Reported Additional Past Alcohol Use History / Comment(s): Pt started smoking in 1962 and quit in 2011 Past Drug Use History: None Reported - Past Family History Father Family Medical History: No Reported History Additional Family Medical History / Comment(s): Father was healthy. He lived to be 87yrs old. Mother Family Medical History: Diabetes Mellitus Additional Family Medical History / Comment(s): Mother of diabetic complications at the age of 61 yrs. Medications and Allergies Home Medications Medication Instructions Recorded Confirmed Type Simvastatin [Zocor] 80 mg PO HS 11/29/13 07/26/20 History Carvedilol [Coreg] 12.5 mg PO BID 08/12/18 07/26/20 History Repaglinide [Prandin] 1 mg PO TID 09/02/19 07/26/20 History Dulaglutide [Trulicity] 0.75 mg SQ FR 10/20/19 07/26/20 History Gabapentin [Neurontin] 300 mg PO BID 02/17/20 07/26/20 History Sulfamethox-Tmp 800-160Mg [Bactrim 1 tab PO BID 07/26/20 07/26/20 History DS 800-160 mg] Allergies Allergy/AdvReac Type Severity Reaction Status Date / Time No Known Allergies Allergy Verified 07/26/20 16:16 Physical Examination - Vital Signs Vital Signs: Vital Signs Temp Pulse Pulse Resp BP BP Pulse Ox 07/27/20 04:58 98.4 F 73 18 136/60 94 L 07/26/20 22:33 97.7 F 61 16 149/75 94 L 07/26/20 22:05 98.0 F 07/26/20 21:46 18 07/26/20 19:04 60 18 130/57 94 L 07/26/20 14:39 97.9 F 64 18 112/70 95 Intake and Output 07/26/20 07/27/20 07/27/20 22:59 06:59 14:59 Intake Total 950 120 Balance 950 120 Intake: Intake, IV Titration 450 Amount Sodium Chloride 0.9% 1, 450 000 ml @ 75 mls/hr IV . [id number] Rx#:[id number] Oral 500 120 Other: Voiding Method Toilet Bedpan Diaper # Voids 2 Weight 68.039 kg Patient is an elderly female, in no acute distress. However she is very sensitive about touching her feet or toes. Patient is alert awake oriented to time place and person. Speech and language functions are normal. Attention, concentration and fund of knowledge is adequate. On cranial examination, pupils are round and reacting to light, visual melendez are full on confrontation, extraocular muscles are intact with no nystagmus. Face is symmetric, tongue protrudes to the midline. Palatal elevation and sensation normal, hearing and shoulder shrug normal, facial sensation normal. Shoulder shrug normal. On muscle strength testing, there is no pronator drift and the strength is normal in arms proximally in deltoid biceps and triceps, purchasing agent are 4+ to 5- bilaterally with decreased endurance. In the lower extremities hip flexion is 4 on the right, 5- on the left. Knee extension is normal, ankle dorsiflexion, inversion and peroneal appears normal although patient was guarding a lot because of pain. Her right first MTP joint is very swollen, tender. Left second toe is very swollen. Suspect gout. Deep tendon reflexes are 2 in the upper limbs at biceps triceps and brachioradialis,, 2+ at the knees 1+ ankles. Plantars are flat. Sensory to touch is equal with no neglect. Cerebellar function showed no ataxia for [id number] testing. No dysdiadochokinesia. Tone and bulk of muscles normal. Gait deferred. On general examination, there is no carotid bruit or murmur, S1-S2 audible. Abdomen is soft nontender. Chest is clear. No peripheral edema. Peripheral pulses could not be felt on either sides. Her first MTP joint of the right foot is very swollen. Her left PIP and DIP joint is swollen. Results - Laboratory Findings CBC and BMP: 07/26/20 15:12 07/26/20 15:12 Abnormal Lab Findings: Abnormal Labs 07/26/20 07/27/20 07/27/20 15:12 00:04 06:53 BUN 22 H Creatinine 1.71 H Glucose 156 H POC Glucose (mg/dL) 145 H 133 H Total Protein 5.8 L Assessment and Plan Assessment: * Bilateral feet pain, with evidence of swelling of right first MTP joint, and the PIP and DIP joint of the left second toe. Probable gouty arthritis with exacerbation. Rule out underlying peripheral neuropathy. * History of severe lumbar spinal stenosis at L4-5 level as per MRI from 09/03/2019. Patient has not had any back surgery. Patient does not have significant back pain or radicular symptoms at this time. * Decreased peripheral pulses, rule out PAD. * Probable Gout. Patient has elevated uric acid 8.0/7.4 on 10/14/2019. * Diabetes * X tobacco use Plan: * We will check uric acid. Suggest treatment for possible acute exacerbation of gout. * Arterial Doppler of lower extremities to rule out PAD. * Hemoglobin A1c * Increased Neurontin to 300 mg 3 times a day. * We will follow.
[2020-07-27 17:39] LABS: Glucose,Whole Blood 63 mg/dL (75-99)
[2020-07-27 18:12] LABS: Glucose,Whole Blood 82 mg/dL (75-99)
[2020-07-27 20:07] LABS: Glucose,Whole Blood 104 mg/dL (75-99)
[2020-07-27] MEDS ORDERED: AMPICILLIN-SULBACTAM 3 GM in SODIUM CHLORIDE 0.9% 100 ML IVPB SCH (21:00)
[2020-07-27] MEDS: ATORVASTATIN 40 MG TAB PO SCH (23:02)
[2020-07-28] MEDS: INDOMETHACIN 25 MG CAP PO SCH ×4 (00:21→21:16)
[2020-07-28] MEDS: GABAPENTIN 300 MG CAP PO SCH ×3 (00:21→21:16)
[2020-07-28 02:10] LABS: Hemoglobin A1C 6.2 % (4.0-6.0)
[2020-07-28] MEDS: HYDROcodone/APAP 5-325MG 1 EACH TAB PO PRN (03:09)
[2020-07-28 05:22] LABS: Basophils % (A) 1 %; Eosinophils # (A) 0.4 k/uL (0-0.7); Eosinophils % (A) 6 %; HCT 37.4 % (34.0-46.0); HGB 12.7 gm/dL (11.4-16.0); Lymphocytes # (A) 1.3 k/uL (1.0-4.8); Lymphocytes % (A) 20 %; MCH 30.6 pg (25.0-35.0); MCHC 33.8 g/dL (31.0-37.0); MCV 90.5 fL (80.0-100.0); Mean Platelet Volume 7.7; Monocytes # (A) 0.6 k/uL (0-1.0); Monocytes % (A) 9 %; Neutrophils % (A) 63 %; Platelet Count 202 k/uL (150-450); RBC 4.13 m/uL (3.80-5.40); RDW 12.3 % (11.5-15.5); WBC 6.3 k/uL (3.8-10.6)
[2020-07-28 07:11] LABS: Glucose,Whole Blood 88 mg/dL (75-99)
--- NOTE | 2020-07-28 07:22 | CONS ---
CONSULTATION DATE OF SERVICE: 07/27/2020 REASON FOR CONSULTATION: Toe cellulitis. HISTORY OF PRESENT ILLNESS: The patient is a 80-year-old female presenting to [facility] ER yesterday afternoon for evaluation of generalized weakness, no energy. The patient felt like she may even passed out today. The patient denies any history of any fall or injury to any part of the body. The patient denies any headache, no chest pain, no shortness or cough. No abdominal pain or diarrhea. The patient has been complaining of some pain to his big toe area, mostly on the right side that apparently has been going on for the last week or so. The patient has been treated with oral antibiotics in the outpatient setting without any improvement, though patient is not sure the name of the antibiotic. With these symptoms, the patient was evaluated by the ER physician. On arrival to the ER, the patient was afebrile and no fever has been recorded. Subsequently the patient did have a normal white count with no left shift. Creatinine was mildly elevated at 1.71. Uric acid was 7.8. Liver enzymes are normal. Urine was negative. Paige PCR was negative. The patient did have x-rays of the toe, which did not show any evidence of acute fracture or dislocation on the toes of the left foot, did shows changes though. Chest x-ray negative for any pneumonia. The patient was started on Unasyn with concern for possible cellulitis of the left foot. Infectious Disease was consulted for further management of antibiotic therapy. REVIEW OF SYSTEMS: Positive points have been mentioned in HPI. Rest of systems are negative. PAST MEDICAL HISTORY: Asthma, heart failure, COPD, CVA, TIA, diabetes mellitus, hyperlipidemia, hypertension, osteoarthritis, pneumonia. PAST SURGICAL HISTORY: Hysterectomy, tonsillectomy, cystocele repair, colonoscopy, bilateral cataract surgery. SOCIAL HISTORY: Remote history of smoking. No drinking or drug use. FAMILY HISTORY: Mother with history of diabetes mellitus. ALLERGIES: No known drug allergies. MEDICATIONS: The patient is currently on Unasyn 3 g q.8h. The patient is on Prandin, Trulicity, Neurontin, Coreg, Lipitor, [place]. PHYSICAL EXAMINATION: VITAL SIGNS: Blood pressure is 124/60 with a pulse of 82, temperature 98, she is 96% on room air. GENERAL DESCRIPTION: Patient is an elderly female lying in bed in no distress. No tachypnea or accessory muscles of respiration use. HEENT: Examination shows no pallor or scleral icterus. Oral mucous membrane is dry. NECK: Trachea central, no thyromegaly. LUNGS: Unlabored breathing, clear to auscultation anteriorly. No wheeze or crackle. HEART: S1-S2, regular rate and rhythm. ABDOMEN: Soft, no tenderness. No guarding or rigidity. EXTREMITIES: No edema of the feet. Examination of the left foot did have some swelling at the first metatarsophalangeal joint, slightly tender to touch with minimal redness. No significant warmth wound. NEUROLOGICAL: Patient is awake, alert, oriented times three. Mood and affect normal. LABS: Hemoglobin is 12.1, white count 6.2. Uric acid level is up at 7.8. Creatinine was 1.71. X-ray report as mentioned above. DIAGNOSTIC IMPRESSION: Patient admitted to the hospital with weakness, lethargy and almost passed out in this patient complaining of pain to the left foot, more likely related to acute gouty arthritis, clinically doubt cellulitis in the patient with no fever or elevated white count PLAN: 1. Discontinue Unasyn. 2. Ideally we could have started the patient on colchicine, however, the patient is on Coreg that is contraindicating the use of colchicine. 3. We will start the patient on Indocin and watch her kidney function closely. 4. We will follow on her clinical condition and further adjust medication if needed. Thank you for this consultation. Will follow this patient along with you. MMODL / IJN: [id number] /
[2020-07-28] MEDS: carvediloL 12.5 MG TAB PO SCH ×2 (07:43→21:16)
[2020-07-28] MEDS: REPAGLINIDE 1 MG TAB PO SCH ×3 (07:44→21:16)
[2020-07-28] MEDS ORDERED: NON FORMULARY DRUG (Dulaglutide [Trulicity] 0.75 MG/0.5 ML Pen.Injctr) SQ SCH (09:00)
[2020-07-28 09:32] LABS: African American GFR (CKD) 41.3 (60.0-200.0); Albumin 3.6 g/dL (3.80-4.90); Albumin/Globulin Ratio 1.89 (1.60-3.17); Anion Gap 9.8 mmol/L (4.00-12.00); BUN/Creat Ratio 14.29 Ratio (12.00-20.00); Calcium 9.1 mg/dL (8.7-10.3); Carbon Dioxide 24.2 mmol/L (21.6-31.8); Globulin 1.9 g/dL (1.6-3.3); Non-African American GFR(CKD) 35.6 (60.0-200.0); Total Bilirubin 0.5 mg/dL (0.3-1.2); Total Protein 5.5 g/dL (6.2-8.2)
[2020-07-28 11:39] LABS: Glucose,Whole Blood 95 mg/dL (75-99)
[2020-07-28 17:12] LABS: Glucose,Whole Blood 117 mg/dL (75-99)
--- NOTE | 2020-07-28 18:09 | P.CNPUL ---
History of Present Illness Consult date: 07/28/20 Reason for consult: dyspnea Chief complaint: Shortness of breath and abnormal chest x-ray History of present illness: This is a pleasant 76-year-old female seen evaluated examined on fifth floor, patient came into the hospital with generalized weakness unable to ambulate as well as left second toe infection, patient has been poorly responsive with oral antibiotics, because of dizziness lightheadedness and feeling weak came into the hospital, her prior history significant for dyslipidemia hypertension hypertensive cardiovascular disease and peripheral neuropathy patient has been on oral Bactrim, she used to smoke in the past quit several years ago, left foot x-ray negative for dislocation and fracture, chest x-ray significant for developing bilateral infiltrate likely pneumonia and small effusion cannot be excluded, she was noted to have a normal CBC and chemistry significant for slightly elevated creatinine of 1.4, she has been on IV Unasyn 1 dose has been given now off of Unasyn, patient is suspected to have a gout was started on colchicine and Indocin of the 4 to will check computed tomography scan of the chest noncontrast to evaluate for pneumonia versus atelectasis Review of Systems All systems: negative Past Medical History Past Medical History: Asthma, Heart Failure, COPD, CVA/TIA, Diabetes Mellitus, Hyperlipidemia, Hypertension, Memory Impairment, Osteoarthritis (OA), Pneumonia, Skin Disorder, Syncope Additional Past Medical History / Comment(s): NIDDM type II, neuropathy bilateral hands/legs/feet, past bilateral lower leg cellulitis/wound, bilateral lower leg edema at times, bronchitis, TIA x 2, occasional low back pain, chronic L leg pain since fall approximately one year ago-pt states physician has run tests on leg but no answer why it is painful, L foot gout. History of Any Multi-Drug Resistant Organisms: None Reported Past Surgical History: Bladder Surgery, Hysterectomy, Tonsillectomy Additional Past Surgical History / Comment(s): Cystocele, R leg vein stripping, pain clinic procedures, bilateral cataract removals, colonoscopy, teeth extracted. Past Anesthesia/Blood Transfusion Reactions: No Reported Reaction, Motion Sickness Past Psychological History: Anxiety Additional Psychological History / Comment(s): Pt has an adult daughter who resides with her. Pt uses a cane or walker to ambulate. She states she has s omeone from [employer] who comes and sits with her sometimes. She has difficulty with showering. She drives alittle, her brady cane take her to appointments sometimes. Smoking Status: Former smoker Past Alcohol Use History: None Reported Additional Past Alcohol Use History / Comment(s): Pt started smoking in 1962 and quit in 2011 Past Drug Use History: None Reported - Past Family History Father Family Medical History: No Reported History Additional Family Medical History / Comment(s): Father was healthy. He lived to be 87yrs old. Mother Family Medical History: Diabetes Mellitus Additional Family Medical History / Comment(s): Mother of diabetic complications at the age of 61 yrs. Medications and Allergies Home Medications Medication Instructions Recorded Confirmed Type Simvastatin [Zocor] 80 mg PO HS 11/29/13 07/26/20 History Carvedilol [Coreg] 12.5 mg PO BID 08/12/18 07/26/20 History Repaglinide [Prandin] 1 mg PO TID 09/02/19 07/26/20 History Dulaglutide [Trulicity] 0.75 mg SQ FR 10/20/19 07/26/20 History Gabapentin [Neurontin] 300 mg PO BID 02/17/20 07/26/20 History Sulfamethox-Tmp 800-160Mg [Bactrim 1 tab PO BID 07/26/20 07/26/20 History DS 800-160 mg] Allergies Allergy/AdvReac Type Severity Reaction Status Date / Time No Known Allergies Allergy Verified 07/26/20 16:16 Physical Exam Vitals: Vital Signs Temp Pulse Resp BP Pulse Ox 07/28/20 12:08 97.8 F 68 17 151/55 95 07/28/20 04:43 97.6 F 87 18 156/67 92 L 07/27/20 20:52 98 F 82 16 124/60 96 Intake and Output 07/28/20 07/28/20 07/28/20 06:59 14:59 22:59 Intake Total 480 Balance 480 Intake: Oral 480 Other: # Voids 1 4 Weight 69.5 kg - Constitutional General appearance: cooperative, disheveled - EENT Eyes: PERRLA ENT: hard of hearing Ears: bilateral: normal - Neck Carotids: bilateral: upstroke normal Thyroid: bilateral: normal size - Respiratory Respiratory: bilateral: CTA - Cardiovascular Rhythm: regular Heart sounds: normal: S1, S2 - Gastrointestinal General gastrointestinal: distended, soft - Integumentary Integumentary: decreased turgor - Neurologic Neurologic: CNII-XII intact - Musculoskeletal Musculoskeletal: gait normal, generalized weakness, strength equal bilaterally - Psychiatric Psychiatric: A&O x's 3, appropriate affect, intact judgment & insight Results - Laboratory Findings CBC and BMP: 07/28/20 05:06 07/28/20 05:06 PT/INR, D-dimer PT 10.2 sec (9.0-12.0) 07/26/20 15:12 INR 1.0 (<1.2) 07/26/20 15:12 Abnormal lab findings: Abnormal Labs 07/26/20 07/26/20 07/26/20 15:12 15:12 15:12 BUN 22 H Creatinine 1.71 H Est GFR (CKD-EPI)AfAm Est GFR (CKD-EPI)NonAf Glucose 156 H POC Glucose (mg/dL) Hemoglobin A1c 6.2 H Uric Acid 7.8 H Total Protein 5.8 L Albumin 07/27/20 07/27/20 07/27/20 00:04 06:53 11:30 BUN Creatinine Est GFR (CKD-EPI)AfAm Est GFR (CKD-EPI)NonAf Glucose POC Glucose (mg/dL) 145 H 133 H 69 L Hemoglobin A1c Uric Acid Total Protein Albumin 07/27/20 07/27/20 07/28/20 17:36 20:06 05:06 BUN Creatinine Est GFR (CKD-EPI)AfAm 41.3 L Est GFR (CKD-EPI)NonAf 35.6 L Glucose POC Glucose (mg/dL) 63 L 104 H Hemoglobin A1c Uric Acid Total Protein 5.5 L Albumin 3.60 L 07/28/20 17:10 BUN Creatinine Est GFR (CKD-EPI)AfAm Est GFR (CKD-EPI)NonAf Glucose POC Glucose (mg/dL) 117 H Hemoglobin A1c Uric Acid Total Protein Albumin - Diagnostic Findings Chest x-ray: report reviewed, image reviewed (Finding as noted above) Assessment and Plan Assessment: Bilateral basal atelectasis evaluated for pneumonia will get a computed tomography scan of the chest Chronic kidney disease Acute gout Generalized weakness Lightheadedness dizziness likely related to intravascular volume depletion dehydration Plan: Overall plan as above monitor observe off of antibiotics, gently rehydrate the patient continue to treat with agents for acute gout, computed tomography scan of the chest has been ordered without IV dye Time with Patient: Greater than 30
--- NOTE | 2020-07-28 18:33 | PN ---
PROGRESS NOTE DATE OF SERVICE: 07/28/2020 REASON FOR FOLLOWUP: Left foot pain and concern for gouty arthritis. INTERVAL HISTORY: Patient is currently afebrile. Still complaining of pain to the left area. Patient did not have any swelling or redness. Denies any chest pain or shortness of breath. Occasional cough. No abdominal pain. No diarrhea. PHYSICAL EXAMINATION: Blood pressure 151/55 with a pulse of 68, temperature 97.8. She is 95% on room air. General description: The patient is an elderly female lying in bed in no distress. Respiratory system: Unlabored breathing, clear to auscultation anteriorly. Heart S1, S2. Regular rate and rhythm. Abdomen soft, no tenderness. Left foot big toe area, joint area with slight swelling and no redness. Tender to touch though. LABS: Hemoglobin is 12.4, white count 6.3, BUN of 20, creatinine 1.4. DIAGNOSTIC IMPRESSION AND PLAN: Patient with left foot pain likely from gouty arthritis. Patient is covered with indomethacin and cannot use the Colchicine because of the Coreg the patient is on. Clinically doubt cellulitis and no need for antibiotic therapy. MMODL / IJN: [id number] /
[2020-07-28] MEDS: ATORVASTATIN 40 MG TAB PO SCH (21:15)
[2020-07-28 21:44] LABS: Glucose,Whole Blood 125 mg/dL (75-99)
[2020-07-29 02:44] LABS: Glucose,Whole Blood 113 mg/dL (75-99)
[2020-07-29 06:47] LABS: Glucose,Whole Blood 74 mg/dL (75-99)
[2020-07-29] MEDS: GABAPENTIN 300 MG CAP PO SCH ×2 (08:02→21:04)
[2020-07-29] MEDS: INDOMETHACIN 25 MG CAP PO SCH ×3 (08:10→21:04)
[2020-07-29] MEDS: carvediloL 12.5 MG TAB PO SCH ×2 (08:10→21:04)
[2020-07-29] MEDS: REPAGLINIDE 1 MG TAB PO SCH ×3 (08:11→21:05)
--- NOTE | 2020-07-29 08:33 | CT ---
EXAMINATION TYPE: CT chest wo con DATE OF EXAM: 07/29/2020 COMPARISON: Chest CT February 18, 2020 HISTORY: Atelectasis CT DLP: 347 mGycm. Automated Exposure Control for Dose Reduction was Utilized. TECHNIQUE: CT scan of the thorax is performed without IV contrast. FINDINGS: LUNGS: Mild to moderate underlying emphysematous change redemonstrated. Tiny bilateral pleural effusi ons redemonstrated. Mild to moderate bibasilar linear scarring and/or atelectasis redemonstrated. No suspicious nodules or masses. No pneumothorax seen bilaterally. MEDIASTINUM: Lack of IV contrast is noted to limit evaluation for mediastinal and especially hilar ad enopathy. There are no definitive greater than 1 cm hilar or mediastinal lymph nodes. Persistent card iomegaly. Persistent moderate to severe three-vessel coronary artery calcification. Stable tiny peric ardial effusion. Moderate to severe calcified plaque of the aorta extends into branch vessels. OTHER: Cholecystectomy clips. Large bridging osteophytes in thoracic spine redemonstrated. IMPRESSION: Mild to moderate chronic emphysematous change and cardiomegaly with tiny bilateral pleura l effusions and mild to moderate bibasilar linear scarring and/or atelectasis. No new focal infiltrat e noted.
[2020-07-29 12:09] LABS: Glucose,Whole Blood 206 mg/dL (75-99)
--- NOTE | 2020-07-29 12:49 | PN ---
PROGRESS NOTE DATE OF SERVICE: 07/28/2020 80-year-old white female with acute gout in her toes and lumbar disc disease. Generalized weakness, unable ambulate. She is started on pain medications: [place] 5/325 every 6 hours, Indocin for the gout, Neurontin for the neuropathy for her lumbar disc disease. She has poor ambulation. She needs to go the custodial. She wants to go to [facility] on the [address]. CARDIOVASCULAR: S1, S2. Lungs clear. GI soft. Musculoskeletal: She is sitting up in the bed. Her strength is 3/5 lower extremities. She has a great toe swollen and deviated on the left foot. We will get PT OT involved. Get her into [facility] [address]. Gout appears to be improving. ASSESSMENT: 1. Gout. 2. Diabetes mellitus. 3. Lumbar radiculopathy/. 4. Gait and generalized weakness. PT/OT. Get her into [facility] [address]. MMMUKUL / IJN: [id number] /
--- NOTE | 2020-07-29 13:08 | P.PN ---
Subjective Progress Note Date: 07/29/20 Principal diagnosis: Small bilateral pleural effusion Bilateral basal atelectasis evaluated for pneumonia will get a computed tomography scan of the chest Chronic kidney disease Acute gout Generalized weakness Lightheadedness dizziness likely related to intravascular volume depletion dehydration 07/29/2020, patient seen eval examined during the rounds labs reviewed medica tions reviewed care plan discussed, respiratory status remains stable denies any chest pain cough or shortness of breath, patient underwent computed tomography scan of the chest noncontrast due to atelectasis of the left lower lobe, computed tomography scan of the chest performed on 07/29/2020 shows bilateral chronic emphysematous changes along with cardiomegaly small bilateral pleural effusion and basal atelectasis no acute infiltrate identified, This is a pleasant 76-year-old female seen evaluated examined on fifth floor, patient came into the hospital with generalized weakness unable to ambulate as well as left second toe infection, patient has been poorly responsive with oral antibiotics, because of dizziness lightheadedness and feeling weak came into the hospital, her prior history significant for dyslipidemia hypertension hypertensive cardiovascular disease and peripheral neuropathy patient has been on oral Bactrim, she used to smoke in the past quit several years ago, left foot x-ray negative for dislocation and fracture, chest x-ray significant for developing bilateral infiltrate likely pneumonia and small effusion cannot be excluded, she was noted to have a normal CBC and chemistry significant for slightly elevated creatinine of 1.4, she has been on IV Unasyn 1 dose has been given now off of Unasyn, patient is suspected to have a gout was started on colchicine and Indocin of the 4 to will check computed tomography scan of the chest noncontrast to evaluate for pneumonia versus atelectasis Objective - Vital Signs Vital signs: Vital Signs Temp 97.5 F L 07/29/20 12:43 Pulse 54 L 07/29/20 12:43 Resp 17 07/29/20 12:43 BP 122/66 07/29/20 12:43 Pulse Ox 95 07/29/20 12:43 Intake & Output 07/28/20 07/29/20 07/29/20 18:59 06:59 18:59 Intake Total 480 200 Output Total 0 Balance 480 200 0 Weight 69 kg Intake: Oral 480 200 Output: Stool 0 Other: Voiding Method Toilet Toilet Bedpan Bedpan Diaper Diaper # Voids 4 1 - Exam - Constitutional General appearance: cooperative, disheveled - EENT Eyes: PERRLA ENT: hard of hearing Ears: bilateral: normal - Neck Carotids: bilateral: upstroke normal Thyroid: bilateral: normal size - Respiratory Respiratory: bilateral: CTA - Cardiovascular Rhythm: regular Heart sounds: normal: S1, S2 - Gastrointestinal General gastrointestinal: distended, soft - Integumentary Integumentary: decreased turgor - Neurologic Neurologic: CNII-XII intact - Musculoskeletal Musculoskeletal: gait normal, generalized weakness, strength equal bilaterally - Psychiatric Psychiatric: A&O x's 3, appropriate affect, intact judgment & insight - Labs CBC & Chem 7: 07/28/20 05:06 07/28/20 05:06 Labs: Abnormal Lab Results - Last 24 Hours (Table) 07/28/20 07/28/20 07/29/20 Range/Units 17:10 21:26 02:39 POC Glucose (mg/dL) 117 H 125 H 113 H (75-99) mg/dL 07/29/20 07/29/20 Range/Units 06:45 12:06 POC Glucose (mg/dL) 74 L 206 H (75-99) mg/dL Microbiology - Last 24 Hours (Table) 07/26/20 15:12 Blood Culture - Preliminary Blood No Growth after 48 hours Assessment and Plan Assessment: Small bilateral pleural effusion Bilateral basal atelectasis No evidence of active infiltrate Chronic kidney disease Acute gout Generalized weakness Lightheadedness dizziness likely related to intravascular volume depletion dehydration Plan: Continue deep breathing exercises incentive spirometry No plans for thoracentesis Observe off of antibiotics as no active pneumonia seen Further plan of care as per clinical response of the patient Time with Patient: Greater than 30
[2020-07-29 17:13] LABS: Glucose,Whole Blood 108 mg/dL (75-99)
[2020-07-29 20:56] LABS: Glucose,Whole Blood 131 mg/dL (75-99)
[2020-07-29] MEDS: ATORVASTATIN 40 MG TAB PO SCH (21:04)
[2020-07-30 00:06] LABS: Glucose,Whole Blood 104 mg/dL (75-99)
[2020-07-30 07:04] LABS: Glucose,Whole Blood 72 mg/dL (75-99)
--- NOTE | 2020-07-30 07:42 | PN ---
PROGRESS NOTE A 80-year-old white female, generalized weakness, lumbar radiculopathy, gout. Denies chest pain, shortness of breath. Vital signs are stable, afebrile. Cardiovascular S1-S2. Lungs clear. GI soft. Hematology negative Homans. ASSESSMENT: 1. Lumbar neuritis. 2. Lumbar disk disease. 3. Gout. 4. Generalized weakness. PROGNOSIS: Guarded. Continue PT, OT. MMODL / IJN: [id number] /
--- NOTE | 2020-07-30 07:49 | PN ---
PROGRESS NOTE DATE OF SERVICE: 07/29/2020 REASON FOR FOLLOWUP: Left foot pain with concern for gouty arthritis. INTERVAL HISTORY: The patient is afebrile. The patient is complaining of pain to the left foot the base of the big toe. The patient is currently not having any swelling or any redness. Patient denies having any chest pain, shortness of breath. Occasional cough. No abdominal pain. No diarrhea. PHYSICAL EXAMINATION: VITAL SIGNS: Blood pressure 94/52 with a pulse of 93, temperature 98.4. She is 95% on room air. GENERAL DESCRIPTION: An elderly female lying in bed in no distress. RESPIRATORY SYSTEM: Unlabored breathing, decreased breath sounds at the bases, no wheezes. HEART: S1, S2. Regular rate and rhythm. ABDOMEN: Soft, no tenderness. EXTREMITIES: Left foot currently with no swelling or redness, though tender to touch. LABS: The patient did have CT of the chest that was negative for any acute infiltrate. DIAGNOSTIC IMPRESSION AND PLAN: Patient with left foot pain. Concern for possible gouty arthritis elevated uric acid level. She is on Indocin as we cannot use the colchicine. Will repeat inflammatory markers and kidney function tomorrow and continue supportive care. MMODL / IJN: [id number] /
[2020-07-30] MEDS: carvediloL 12.5 MG TAB PO SCH ×2 (08:30→21:42)
[2020-07-30] MEDS: INDOMETHACIN 25 MG CAP PO SCH ×3 (08:30→21:43)
[2020-07-30] MEDS: GABAPENTIN 300 MG CAP PO SCH ×2 (08:30→21:42)
[2020-07-30] MEDS: REPAGLINIDE 1 MG TAB PO SCH ×3 (08:31→21:42)
[2020-07-30] MEDS: HYDROcodone/APAP 5-325MG 1 EACH TAB PO PRN (08:34)
[2020-07-30 09:57] LABS: Anion Gap 6.4 mmol/L (4.00-12.00); BUN/Creat Ratio 22.67 Ratio (12.00-20.00); C Reactive Protein 5.4 mg/dL (0.0-0.8); Calcium 9.2 mg/dL (8.7-10.3); Carbon Dioxide 26.6 mmol/L (21.6-31.8); Non-African American GFR(CKD) 32.8 (60.0-200.0); Potassium 4.6 mmol/L (3.5-5.5)
[2020-07-30 10:08] LABS: Basophils # (A) 0.04 X 10*3/uL (0.00-0.10); Basophils % (A) 0.7 %; Eosinophils # (A) 0.46 X 10*3/uL (0.04-0.35); Eosinophils % (A) 7.7 %; HCT 35.5 % (37.2-46.3); HGB 11.7 g/dL (12.0-15.0); Lymphocytes # (A) 1.82 X 10*3/uL (0.90-5.00); Lymphocytes % (A) 30.5 %; MCH 29.4 pg (27.0-32.0); MCV 89.2 fL (80.0-97.0); Mean Platelet Volume 10.7 fL (9.5-12.2); Monocytes # (A) 0.59 X 10*3/uL (0.20-1.00); Monocytes % (A) 9.9 %; Neutrophils # (A) 3.05 X 10*3/uL (1.80-7.70); Platelet Count 239 X 10*3/uL (140-440); RBC 3.98 X 10*6/uL (4.10-5.20); RDW 11.9 % (11.5-14.5); WBC 5.97 X 10*3/uL (4.50-10.00)
--- NOTE | 2020-07-30 10:27 | P.PN ---
Subjective Progress Note Date: 07/30/20 Principal diagnosis: Small bilateral pleural effusion Bilateral basal atelectasis evaluated for pneumonia will get a computed tomography scan of the chest Chronic kidney disease Acute gout Generalized weakness Lightheadedness dizziness likely related to intravascular volume depletion dehydration 07/30/2020, patient seen evniall examined during the rounds that was reviewed med ications reviewed, left second and big toe is still inflamed severity has improved, respiratory status stable, patient is undergoing therapy for gout, continue deep breathing exercises and incentive spirometry 07/29/2020, patient seen eval examined during the rounds labs reviewed medications reviewed care plan discussed, respiratory status remains stable denies any chest pain cough or shortness of breath, patient underwent computed tomography scan of the chest noncontrast due to atelectasis of the left lower lobe, computed tomography scan of the chest performed on 07/29/2020 shows bilateral chronic emphysematous changes along with cardiomegaly small bilateral pleural effusion and basal atelectasis no acute infiltrate identified, This is a pleasant 76-year-old female seen evaluated examined on fifth floor, patient came into the hospital with generalized weakness unable to ambulate as w ell as left second toe infection, patient has been poorly responsive with oral antibiotics, because of dizziness lightheadedness and feeling weak came into the hospital, her prior history significant for dyslipidemia hypertension hypertensive cardiovascular disease and peripheral neuropathy patient has been on oral Bactrim, she used to smoke in the past quit several years ago, left foot x-ray negative for dislocation and fracture, chest x-ray significant for developing bilateral infiltrate likely pneumonia and small effusion cannot be excluded, she was noted to have a normal CBC and chemistry significant for slightly elevated creatinine of 1.4, she has been on IV Unasyn 1 dose has been given now off of Unasyn, patient is suspected to have a gout was started on colchicine and Indocin of the 4 to will check computed tomography scan of the chest noncontrast to evaluate for pneumonia versus atelectasis Objective - Vital Signs Vital signs: Vital Signs Temp 97.9 F 07/30/20 06:29 Pulse 56 L 07/30/20 08:00 Resp 15 07/30/20 08:00 BP 138/64 07/30/20 06:29 Pulse Ox 95 07/30/20 06:29 Intake & Output 05/22/21 05/23/21 05/23/21 18:59 06:59 18:59 Intake Total 240 Output Total 0 0 Balance 240 0 Weight 67 kg Intake: Oral 240 Output: Stool 0 0 Other: Voiding Method Toilet Toilet Toilet Bedpan Bedside Commode Bedside Commode Diaper # Voids 2 2 - Exam - Constitutional General appearance: cooperative, disheveled - EENT Eyes: PERRLA ENT: hard of hearing Ears: bilateral: normal - Neck Carotids: bilateral: upstroke normal Thyroid: bilateral: normal size - Respiratory Respiratory: bilateral: CTA - Cardiovascular Rhythm: regular Heart sounds: normal: S1, S2 - Gastrointestinal General gastrointestinal: distended, soft - Integumentary Integumentary: decreased turgor - Neurologic Neurologic: CNII-XII intact - Musculoskeletal Musculoskeletal: gait normal, generalized weakness, strength equal bilaterally - Psychiatric Psychiatric: A&O x's 3, appropriate affect, intact judgment & insight - Labs CBC & Chem 7: 07/30/20 06:06 07/30/20 06:06 Labs: Abnormal Lab Results - Last 24 Hours (Table) 07/29/20 07/29/20 07/29/20 Range/Units 12:06 17:02 20:55 RBC (4.10-5.20) X 10*6/uL Hgb (12.0-15.0) g/dL Hct (37.2-46.3) % Eosinophils # (0.04-0.35) X 10*3/uL Chloride (96-109) mmol/L BUN (9.0-27.0) mg/dL Est GFR (CKD-EPI)AfAm (60.0-200.0) Est GFR (CKD-EPI)NonAf (60.0-200.0) BUN/Creatinine Ratio (12.00-20.00) Ratio POC Glucose (mg/dL) 206 H 108 H 131 H (75-99) mg/dL C-Reactive Protein (0.0-0.8) mg/dL Procalcitonin (0.02-0.09) ng/mL 07/30/20 07/30/20 07/30/20 Range/Units 00:04 06:06 06:06 RBC 3.98 L (4.10-5.20) X 10*6/uL Hgb 11.7 L (12.0-15.0) g/dL Hct 35.5 L (37.2-46.3) % Eosinophils # 0.46 H (0.04-0.35) X 10*3/uL Chloride (96-109) mmol/L BUN (9.0-27.0) mg/dL Est GFR (CKD-EPI)AfAm (60.0-200.0) Est GFR (CKD-EPI)NonAf (60.0-200.0) BUN/Creatinine Ratio (12.00-20.00) Ratio POC Glucose (mg/dL) 104 H (75-99) mg/dL C-Reactive Protein (0.0-0.8) mg/dL Procalcitonin 0.11 H (0.02-0.09) ng/mL 07/30/20 07/30/20 Range/Units 06:06 06:59 RBC (4.10-5.20) X 10*6/uL Hgb (12.0-15.0) g/dL Hct (37.2-46.3) % Eosinophils # (0.04-0.35) X 10*3/uL Chloride 110 H (96-109) mmol/L BUN 34.0 H (9.0-27.0) mg/dL Est GFR (CKD-EPI)AfAm 38.0 L (60.0-200.0) Est GFR (CKD-EPI)NonAf 32.8 L (60.0-200.0) BUN/Creatinine Ratio 22.67 H (12.00-20.00) Ratio POC Glucose (mg/dL) 72 L (75-99) mg/dL C-Reactive Protein 5.4 H (0.0-0.8) mg/dL Procalcitonin (0.02-0.09) ng/mL Microbiology - Last 24 Hours (Table) 07/26/20 15:12 Blood Culture - Preliminary Blood No Growth after 72 hours Assessment and Plan Assessment: Small bilateral pleural effusion Bilateral basal atelectasis No evidence of active infiltrate Chronic kidney disease Acute gout Generalized weakness Lightheadedness dizziness likely related to intravascular volume depletion dehydration Plan: Continue deep breathing exercises incentive spirometry No plans for thoracentesis Observe off of antibiotics as no active pneumonia seen Further plan of care as per clinical response of the patient Time with Patient: Greater than 30
[2020-07-30 11:44] LABS: Glucose,Whole Blood 92 mg/dL (75-99)
[2020-07-30 11:53] LABS: Erythrocyte Sedimentation Rate 63 mm/Hr (0-30)
[2020-07-30 17:04] LABS: Glucose,Whole Blood 92 mg/dL (75-99)
[2020-07-30 20:12] LABS: Glucose,Whole Blood 132 mg/dL (75-99)
--- NOTE | 2020-07-30 20:54 | P.PN ---
Progress Note - Text Progress Note Date: 07/30/20 presenting complaint: Tired History of presenting complaint: Admitted with feeling tired.pain in the left foot. Possible gouty arthritis. Today: Sitting up in a chair. Feeling better. Pain control. Oral intake fair. Review of systems: Was done for constitutional, cardiovascular, GI, pulmonary. relevant finding as above Active Medications Hydrocodone Bitart/Acetaminophen (Hydrocodone/Apap 5-325mg 1 Each Tab) 1 each PO Q6HR PRN PRN Reason: Pain Last Admin: 07/30/20 08:34 Dose: 1 each Documented by: Atorvastatin Calcium (Atorvastatin 40 Mg Tab) 40 mg PO HS [facility] Last Admin: 07/29/20 21:04 Dose: 40 mg Documented by: Carvedilol (Carvedilol 12.5 Mg Tab) 12.5 mg PO BID [facility] Last Admin: 07/30/20 08:30 Dose: 12.5 mg Documented by: Gabapentin (Gabapentin 300 Mg Cap) 300 mg PO BID [facility] Last Admin: 07/30/20 08:30 Dose: 300 mg Documented by: Indomethacin (Indomethacin 25 Mg Cap) 25 mg PO TID [facility] Last Admin: 07/30/20 17:29 Dose: 25 mg Documented by: Non-Formulary Medication (Dulaglutide [Trulicity]) 0.75 mg SQ Fr@0900 [facility] Last Admin: 07/28/20 07:44 Dose: Not Given Documented by: Repaglinide (Repaglinide 1 Mg Tab) 1 mg PO TID [facility] Last Admin: 07/30/20 17:28 Dose: 1 mg Documented by: On examination: VITAL SIGNS: [87.9, 56, 15, 1 38 x 64, 95% room air] GENERAL APPEARANCE: sitting up in a chair, awake comfortable. HEENT: Normal external appearance of nose and ear. Oral cavity normal EYES: Pupils equal. Conjunctiva normal. NECK: JVD not raised. Mass not palpable. RESPIRATORY: Respiratory effort normal. Lungs decreased breath sounds CARDIOVASCULAR: First and second sounds normal. No edema. ABDOMEN: Soft. Liver and spleen not palpable. No tenderness. No mass palpable. PSYCHIATRY: Alert and oriented x3. Mood and affect normal. INVESTIGATIONS, reviewed in the clinical context: WBC 5.9 hemoglobin 11.7 platelets 239creatinine 1.5 Previous testing: Creatinine 1.7 Assessment plan: -Acute kidney injury, likely prerenal IV fluids - COPD in a previous smoker -Diabetes mellitus type 2 Continue with Prandin and truliicity. Follow Accu-Cheks -Diabetic peripheral neuropathy Continue with Neurontin -lumbar spine multilevel osteoarthritis, with moderate central stenosis at L4- L5. Pain medications as needed -Cognitive impairment -Essential hypertension -hyperlipidemia Continue with Lipitor -Chronic kidney disease combination of hypertensive nephrosclerosis and diabetic nephropathy Follow renal function -Possible acute flareup of left foot gouty arthritis-improving On Indocin Care was discussed with the patient. Continue current medication and treatment plan.
--- NOTE | 2020-07-30 21:26 | PN ---
PROGRESS NOTE DATE OF SERVICE: 07/30/2020 REASON FOR FOLLOWUP: Left foot pain and question of possible gouty arthritis. INTERVAL HISTORY: Patient is currently afebrile. The patient is feeling better. Breathing comfortably. Denies having any chest pain, shortness of breath or cough. The left foot pain is currently controlled. PHYSICAL EXAMINATION: Blood pressure is 195/60 with a pulse of 80, temperature of 97.3. She is 96% on room air. General description: The patient is an elderly female up in the chair in no distress. Respiratory system: Unlabored breathing, clear to auscultation anteriorly. Heart S1, S2. Regular rate and rhythm. Abdomen soft, no tenderness. Left foot swelling and redness have improved. DIAGNOSTIC IMPRESSION AND PLAN: Patient with left foot pain, concern for possible gouty arthritis, does not behave like cellulitis or septic arthritis. Overall improvement on Indocin. No need for systemic antibiotic. Continue supportive care. MMODL / IJN: [id number] /
[2020-07-30 21:38] VITALS: RESP 16
[2020-07-30] MEDS: ATORVASTATIN 40 MG TAB PO SCH (21:42)
--- NOTE | 2020-07-31 01:37 | P.PN ---
Subjective Progress Note Date: 07/28/20 Agent for seen for a follow-up. Patient is laying comfortably in the bed. Continues to have pain in the feet. No new concerns. Objective - Vital Signs Vital signs: Vital Signs Temp 97.8 F 07/28/20 12:08 Pulse 68 07/28/20 12:08 Resp 17 07/28/20 12:08 BP 151/55 07/28/20 12:08 Pulse Ox 95 07/28/20 12:08 Intake & Output 07/28/20 07/28/20 07/29/20 06:59 18:59 06:59 Intake Total 120 480 Output Total 0 Balance 120 480 Weight 69.5 kg Intake: Oral 120 480 Output: Stool 0 Other: Voiding Method Toilet Toilet Bedpan Bedpan Diaper Diaper # Voids 1 4 - Exam Patient was somnolent, did not examine in detail. Patient not cooperating. - Labs CBC & Chem 7: 07/30/20 06:06 07/30/20 06:06 Labs: Abnormal Lab Results - Last 24 Hours (Table) 07/26/20 07/28/20 07/28/20 Range/Units 15:12 05:06 17:10 Est GFR (CKD-EPI)AfAm 41.3 L (60.0-200.0) Est GFR (CKD-EPI)NonAf 35.6 L (60.0-200.0) POC Glucose (mg/dL) 117 H (75-99) mg/dL Hemoglobin A1c 6.2 H (4.0-6.0) % Total Protein 5.5 L (6.2-8.2) g/dL Albumin 3.60 L (3.80-4.90) g/dL 07/28/20 Range/Units 21:26 Est GFR (CKD-EPI)AfAm (60.0-200.0) Est GFR (CKD-EPI)NonAf (60.0-200.0) POC Glucose (mg/dL) 125 H (75-99) mg/dL Hemoglobin A1c (4.0-6.0) % Total Protein (6.2-8.2) g/dL Albumin (3.80-4.90) g/dL Microbiology - Last 24 Hours (Table) 07/26/20 15:12 Blood Culture - Preliminary Blood No Growth after 24 hours Assessment and Plan Assessment: * Bilateral feet pain, with evidence of swelling of right first MTP joint, and the PIP and DIP joint of the left second toe. Probable gouty arthritis with exacerbation. Rule out underlying peripheral neuropathy. * History of severe lumbar spinal stenosis at L4-5 level as per MRI from 2019. Patient has not had any back surgery. Patient does not have significant back pain or radicular symptoms at this time. * Syncopal spells, unclear cause. Possibly orthostatic or vasovagal. * Decreased peripheral pulses, rule out PAD. * Probable Gout. Patient has elevated uric acid 8.0/7.4 on 10/14/2019. * Diabetes * X tobacco use Plan: * Uric acid 6.0. Suggest treatment for possible acute exacerbation of gout. Patient on indomethacin. * Arterial Doppler of lower extremities were attempted. Patient unable to tolerate blood pressure cuffs and inflation attempts on legs, this arterial Doppler study was discontinued. * Hemoglobin A1c 6.2 * Increased Neurontin to 300 mg 3 times a day. * B12, folate. * Consider EMG and nerve conductions. * Patient had a carotid Doppler on 02/19/2020, which revealed no evidence of hemodynamically significant stenosis of the ICA. Antegrade flow in both vertebral arteries. No need to repeat. * 2-D echo from 10/22/2019 revealed normal left-ventricular size. Moderate concentric LVH, EF is 60-65%. Mild aortic valve sclerosis. Mild AR. * Dr. Morteza Morton to resume neurology service from Friday.
[2020-07-31] MEDS: HYDROcodone/APAP 5-325MG 1 EACH TAB PO PRN (05:14)
[2020-07-31 06:51] LABS: Glucose,Whole Blood 89 mg/dL (75-99)
[2020-07-31] MEDS: INDOMETHACIN 25 MG CAP PO SCH (08:26)
[2020-07-31] MEDS: carvediloL 12.5 MG TAB PO SCH (08:26)
[2020-07-31] MEDS: REPAGLINIDE 1 MG TAB PO SCH (08:28)
[2020-07-31] MEDS ORDERED: GABAPENTIN 300 MG CAP PO SCH (09:00)
[2020-07-31 09:21] LABS: Folate, Serum 8.1 ng/mL
--- NOTE | 2020-07-31 11:08 | P.PN ---
Subjective Progress Note Date: 07/31/20 Principal diagnosis: Small bilateral pleural effusion Bilateral basal atelectasis evaluated for pneumonia will get a computed tomography scan of the chest Chronic kidney disease Acute gout Generalized weakness Lightheadedness dizziness likely related to intravascular volume depletion dehydration 07/31/2020, patient seen eval examined during the rounds labs reviewed medicat ions reviewed shortness of breath stable patient is denies any chest pain, patient is advised to continue deep breathing sense incentive spirometry, 07/30/2020, patient seen eval examined during the rounds that was reviewed medications reviewed, left second and big toe is still inflamed severity has improved, respiratory status stable, patient is undergoing therapy for gout, continue deep breathing exercises and incentive spirometry 07/29/2020, patient seen eval examined during the rounds labs reviewed medications reviewed care plan discussed, respiratory status remains stable denies any chest pain cough or shortness of breath, patient underwent computed tomography scan of the chest noncontrast due to atelectasis of the left lower lobe, computed tomography scan of the chest performed on 07/29/2020 shows bilateral chronic emphysematous changes along with cardiomegaly small bilateral pleural effusion and basal atelectasis no acute infiltrate identified, This is a pleasant 76-year-old female seen evaluated examined on fifth floor, patient came into the hospital with generalized weakness unable to ambulate as well as left second toe infection, patient has been poorly responsive with oral antibiotics, because of dizziness lightheadedness and feeling weak came into the hospital, her prior history significant for dyslipidemia hypertension hypertensive cardiovascular disease and peripheral neuropathy patient has been on oral Bactrim, she used to smoke in the past quit several years ago, left foot x-ray negative for dislocation and fracture, chest x-ray significant for developing bilateral infiltrate likely pneumonia and small effusion cannot be excluded, she was noted to have a normal CBC and chemistry significant for slightly elevated creatinine of 1.4, she has been on IV Unasyn 1 dose has been given now off of Unasyn, patient is suspected to have a gout was started on c olchicine and Indocin of the 4 to will check computed tomography scan of the chest noncontrast to evaluate for pneumonia versus atelectasis Objective - Vital Signs Vital signs: Vital Signs Temp 97.6 F 07/31/20 05:05 Pulse 66 07/31/20 05:05 Resp 16 05/24/21 05:05 BP 168/75 07/31/20 05:05 Pulse Ox 94 L 07/31/20 05:05 Intake & Output 07/30/20 07/31/20 07/31/20 18:59 06:59 18:59 Intake Total 680 540 Output Total 0 0 Balance 680 540 Intake: Oral 680 540 Output: Stool 0 0 Other: Voiding Method Toilet Toilet Bedside Commode Bedside Commode # Voids 3 0 - Exam - Constitutional General appearance: cooperative, disheveled - EENT Eyes: PERRLA ENT: hard of hearing Ears: bilateral: normal - Neck Carotids: bilateral: upstroke normal Thyroid: bilateral: normal size - Respiratory Respiratory: bilateral: CTA - Cardiovascular Rhythm: regular Heart sounds: normal: S1, S2 - Gastrointestinal General gastrointestinal: distended, soft - Integumentary Integumentary: decreased turgor - Neurologic Neurologic: CNII-XII intact - Musculoskeletal Musculoskeletal: gait normal, generalized weakness, strength equal bilaterally - Psychiatric Psychiatric: A&O x's 3, appropriate affect, intact judgment & insight - Labs CBC & Chem 7: 07/30/20 06:06 07/30/20 06:06 Labs: Abnormal Lab Results - Last 24 Hours (Table) 07/30/20 07/30/20 Range/Units 06:06 20:10 ESR 63 H (0-30) mm/Hr POC Glucose (mg/dL) 132 H (75-99) mg/dL Microbiology - Last 24 Hours (Table) 07/26/20 15:12 Blood Culture - Preliminary Blood No Growth after 96 hours Assessment and Plan Assessment: Small bilateral pleural effusion Bilateral basal atelectasis No evidence of active infiltrate Chronic kidney disease Acute gout Generalized weakness Lightheadedness dizziness likely related to intravascular volume depletion dehydration Plan: Continue deep breathing exercises incentive spirometry No plans for thoracentesis Observe off of antibiotics as no active pneumonia seen Further plan of care as per clinical response of the patient Time with Patient: Greater than 30
[2020-07-31 11:35] LABS: Glucose,Whole Blood 168 mg/dL (75-99)
[2020-07-31 11:52] VITALS: BP 141/57; PULSE 63; TEMP 97.5
--- NOTE | 2020-07-31 12:35 | DS ---
DISCHARGE SUMMARY CONDITION: Stable. DIET: Regular. AMBULATE: As tolerated. She needs physical therapy for generalized weakness. DATE OF DISCHARGE: 07/31/2020. MEDICINES: 1. Indocin 25 mg t.i.d. 2. Neurontin 300 t.i.d. 3. [place] 5/325 q.6 hours. 4. Zocor 80 at night. 5. Coreg 12.5 b.i.d. 6. Prandin 1 mg t.i.d. 7. Trulicity 0.75 mg once a week. DIAGNOSES: 1. Cellulitis of the toe. 2. Acute gout to the right great toe. 3. Generalized weakness. 4. Lumbar disc disease. 5. Significant spinal stenosis of the lumbar spine. 6. Hypertension. 7. Coronary artery disease. 8. Diabetic neuropathy. 9. Diabetes mellitus. The patient was admitted to the hospital due to acute gout infection and acute lumbar disc disease. Placed on Indocin 25 t.i.d. Her Neurontin for diabetic neuropathy was continued at 300 t.i.d. [place] for pain was given. She was seen by pain specialist, arthritis doctors. Medications were adjusted. She was stabilized and blood cultures were negative. She will be sent to [facility] in stable condition. Dr. Tu Coon will see her up there. MMODL / IJN: [id number] /
--- NOTE | 2020-07-31 12:59 | PN ---
PROGRESS NOTE DATE OF SERVICE: 07/31/2020 REASON FOR FOLLOW UP: Left foot pain concerning for a gouty arthritis. INTERVAL HISTORY: The patient is afebrile. The patient is feeling better, breathing comfortably. Overall pain and discomfort to the foot is improved. Patient denies having any chest pain, no shortness of breath or cough. No abdominal pain or diarrhea. PHYSICAL EXAMINATION: Blood pressure 141/57, pulse of 63, temperature 97.5. She is 97% on room air. General description is a middle-aged female up in the bed in no distress. RESPIRATORY SYSTEM: Unlabored breathing, clear to auscultation anteriorly. HEART: S1, S2. Regular rate and rhythm. ABDOMEN: Soft, no tenderness. Left foot overall swelling has improved. LABS: No new labs have been obtained today. DIAGNOSTIC IMPRESSION AND PLAN: Patient with left foot pain, concerning for possible gouty arthritis, pain has been mostly in the first metatarsal joint. No evidence of cellulitis on Unasyn continue while watching the kidney function closely. Continue supportive care. MMODL / IJN: [id number] /
--- NOTE | 2020-07-31 13:39 | CDI ---
Documentation Clarification Form Date: 07/31/2020 01:28:21 PM From: Bethany Bruno RN, CCDS Admit Date: 07/27/2020 01:05:00 PM Patient Name: Bárbara Manriquez Visit Number: [id number] ATTENTION: The Clinical Documentation Specialists (CDI) and [facility] Coding Staff appreciate your assistance in clarifying documentation. Please respond to the clarification below the line at the bottom and electronically sign. The CDI & [facility] Coding staff will review the response and follow-up if needed. Please note: Queries are made part of the Legal Health Record. If you have any questions, please contact the author of this message via ITS. Dr. Tu Coon Conflicting documentation has been found in the medical record. As attending physician, please provide clarification. 07/31 D/C Summary: "Cellulitis of the toe." 07/26 H&P: "Cellulitis of the foot/toe diabetic wound infection." 07/31 ID Progress note: "Patient with left foot pain, concerning for possible gouty arthritis, pain has been mostly in the first metatarsal joint. No evidence of cellulitis on Unasyn continue while watching the kidney function closely." 07/28 ID: "Clinically doubt cellulitis and no need for antibiotic therapy." History/Risk Factors: Gouty OA, COPD, DM2, DM peripheral neuropathy, HTN, ZULAY on CKD, CVA Clinical Indicators: 07/30 Attending Progress note: Possible acute flare-up of gouty arthritis improving Treatment: 07/26-07/27 Unasyn 3gm IVPB Q 6 hrs. Please clarify which diagnosis is most appropriate: [ ] Cellulitis is ruled out [ ] Cellulitis is present and treated [ ] Other (please specify) [ ] Unable to determine (Template Last Revised: May 2020) MTDD
--- NOTE | 2020-08-02 10:11 | P.ARTDOP ---
Arterial Doppler LOWER EXTREMITY ARTERIAL DOPPLER: DATE OF SERVICE: 07/27/2020 Reason for study: Bilateral foot pain. Doppler waveforms: Multiphasic at both femorals and atypical below. Pulse volume recording: []. Pressure gradients: Unable to record pressures in this limited study. Ankle-brachial indices: []. Toe brachial indices: [] on the right, [] on the left Impression: This is a very limited study due to patient's inability to tolerate cuffs. No pressures were done. Waveforms suggest at least moderate bilateral fem-pop disease. Cannot entirely rule out iliac component. Clinical correlation recommended with vascular specialty consults considered if symptoms warrant.
--- NOTE | 2020-08-03 20:59 | CDI ---
Documentation Clarification Form 2nd Request Date: 07/31/2020 01:28:21 PM From: Bethany Bruno RN, CCDS Admit Date: 07/27/2020 01:05:00 PM Patient Name: Bárbara Manriquez Visit Number: [id number] ATTENTION: The Clinical Documentation Specialists (CDI) and [facility] Coding Staff appreciate your assistance in clarifying documentation. Please respond to the clarification below the line at the bottom and electronically sign. The CDI & [facility] Coding staff will review the response and follow-up if needed. Please note: Queries are made part of the Legal Health Record. If you have any questions, please contact the author of this message via ITS. Dr. Tu Coon Conflicting documentation has been found in the medical record. As attending physician, please provide clarification. 07/31 D/C Summary: "Cellulitis of the toe." 07/26 H&P: "Cellulitis of the foot/toe diabetic wound infection." 07/31 ID Progress note: "Patient with left foot pain, concerning for possible gouty arthritis, pain has been mostly in the first metatarsal joint. No evidence of cellulitis on Unasyn continue while watching the kidney function closely." 07/28 ID: "Clinically doubt cellulitis and no need for antibiotic therapy." History/Risk Factors: Gouty OA, COPD, DM2, DM peripheral neuropathy, HTN, ZULAY on CKD, CVA Clinical Indicators: 07/30 Attending Progress note: Possible acute flare-up of gouty arthritis improving Treatment: 07/26-07/27 Unasyn 3gm IVPB Q 6 hrs. Please clarify which diagnosis is most appropriate: [ ] Cellulitis is ruled out [ ] Cellulitis is present and treated [ ] Other (please specify) [ ] Unable to determine (Template Last Revised: May 2020) MTDD
--- NOTE | 2020-08-14 18:12 | PN ---
PROGRESS NOTE Please add to the discharge: Cellulitis is ruled in of the foot. MMODL / IJN: [id number] /
== END 2020-07-31 13:45 | DRG 554 ==
LOC: EC 14:03 → 5NMEDONC 18:52 → OBSVTOIN 07-27 13:05
PROVIDERS: ADMIT Family Medicine; ATTEND Family Medicine
PROC: B44HZZZ Ultrasonography of Bilateral Lower Extremity Arteries (ICD-10-PCS; principal; 2020-07-27)
DX: M10.9 Gout, unspecified (principal); I13.0 Hypertensive heart and chronic kidney disease with heart failure and stage 1 through stage 4 chronic kidney disease, or unspecified chronic kidney disease; L03.116 Cellulitis of left lower limb; J98.11 Atelectasis; E11.42 Type 2 diabetes mellitus with diabetic polyneuropathy; E11.22 Type 2 diabetes mellitus with diabetic chronic kidney disease; I50.9 Heart failure, unspecified; L03.032 Cellulitis of left toe; J44.9 Chronic obstructive pulmonary disease, unspecified; Z20.822 Contact with and (suspected) exposure to COVID-19; M48.061 Spinal stenosis, lumbar region without neurogenic claudication; M47.26 Other spondylosis with radiculopathy, lumbar region; M51.16 Intervertebral disc disorders with radiculopathy, lumbar region; M43.16 Spondylolisthesis, lumbar region; G89.29 Other chronic pain; E78.5 Hyperlipidemia, unspecified; E86.0 Dehydration; N18.9 Chronic kidney disease, unspecified; I25.10 Atherosclerotic heart disease of native coronary artery without angina pectoris; I35.8 Other nonrheumatic aortic valve disorders; H91.90 Unspecified hearing loss, unspecified ear; E78.00 Pure hypercholesterolemia, unspecified; G31.84 Mild cognitive impairment of uncertain or unknown etiology; F41.9 Anxiety disorder, unspecified; Z79.84 Long term (current) use of oral hypoglycemic drugs; Z79.899 Other long term (current) drug therapy; Z87.891 Personal history of nicotine dependence; Z87.01 Personal history of pneumonia (recurrent); Z86.73 Personal history of transient ischemic attack (TIA), and cerebral infarction without residual deficits; Z91.81 History of falling; Z90.710 Acquired absence of both cervix and uterus; Z90.89 Acquired absence of other organs; Z87.448 Personal history of other diseases of urinary system; Z87.42 Personal history of other diseases of the female genital tract; Z86.79 Personal history of other diseases of the circulatory system; Z98.42 Cataract extraction status, left eye; Z98.41 Cataract extraction status, right eye; Z98.818 Other dental procedure status; Z98.890 Other specified postprocedural states; Z83.3 Family history of diabetes mellitus
CPT/HCPCS: 36415; 71046; 71250; 72131; 80048; 80053; 81003; 82607; 82746; 83036; 83605; 83735; 84145; 84484; 84550; 85025; 85610; 85652; 85730; 86140; 87040; 87635; 93005; 93922; 96360; 96361; 99285

== ENCOUNTER 2020-10-09 10:34 | Emergency (ER) | payer MEDICARE ==
[2020-10-09 10:51] VITALS: RESP 18
[2020-10-09 11:08] LABS: Glucose,Whole Blood 75 mg/dL (75-99)
[2020-10-09 11:08] LABS: Appearance,Urine Clear (Clear); Bilirubin,Urine Negative (Negative); Blood,Urine Negative (Negative); Color,Urine Yellow; Glucose,Urine (UA) Negative (Negative); Ketones,Urine Negative (Negative); Leukocyte Esterase,Urine Negative (Negative); Nitrite,Urine Negative (Negative); Protein,Urine Negative (Negative); Specific Gravity,Urine 1.013 (1.001-1.035); Urobilinogen,Urine <2.0 mg/dL (<2.0)
[2020-10-09 11:20] LABS: Basophils % (A) 1 %; Eosinophils # (A) 0.4 k/uL (0-0.7); Eosinophils % (A) 6 %; HGB 13.3 gm/dL (11.4-16.0); Lymphocytes # (A) 1.7 k/uL (1.0-4.8); Lymphocytes % (A) 27 %; MCHC 34.2 g/dL (31.0-37.0); MCV 90.7 fL (80.0-100.0); Mean Platelet Volume 8.4; Monocytes # (A) 0.5 k/uL (0-1.0); Monocytes % (A) 8 %; Neutrophils # (A) 3.4 k/uL (1.3-7.7); Neutrophils % (A) 55 %; Platelet Count 268 k/uL (150-450); RBC 4.29 m/uL (3.80-5.40); RDW 13.1 % (11.5-15.5); WBC 6.1 k/uL (3.8-10.6)
[2020-10-09 11:22] LABS: Albumin 4.1 g/dL (3.5-5.0); Calcium 9.8 mg/dL (8.4-10.2); Potassium 4.4 mmol/L (3.5-5.1); Total Bilirubin 0.6 mg/dL (0.2-1.3); Total Protein 6.6 g/dL (6.3-8.2)
[2020-10-09 11:27] LABS: Prothrombin Time 10.3 sec (9.0-12.0)
--- NOTE | 2020-10-09 11:38 | XR ---
EXAMINATION TYPE: XR chest 2V DATE OF EXAM: 10/09/2020 COMPARISON: 07/26/2020 HISTORY: 80-year-old female confusion, altered mental status TECHNIQUE: AP and lateral views FINDINGS: Heart mildly enlarged. Slight leftward patient rotation. Mild atherosclerotic calcifications througho ut the aorta. Hyperinflation. Strandy atelectasis at lung bases. No consolidation or effusion. IMPRESSION: Mild cardiomegaly. COPD. No definite acute process.
--- NOTE | 2020-10-09 11:43 | ED ---
General Adult HPI - General Chief complaint: Altered Mental Status Stated complaint: altered Time Seen by Provider: 10/09/20 10:45 Source: patient, EMS, RN notes reviewed Mode of arrival: EMS Limitations: no limitations - History of Present Illness Initial comments: This a 80-year-old female presents emergency Department for evaluation of possible episode of confusion. Patient was at home as daughter called EMS patient was having an acute panic attack, hyperventilating upon arrival EMS she is calm down and has no complaints at this time. Denies any headache, blurred vision, abdominal pain, nausea vomiting diarrhea constipation no chest pain or s hortness of breath. Patient states she feels like her usual self at this time. - Related Data Home Medications Medication Instructions Recorded Confirmed Simvastatin [Zocor] 80 mg PO HS 11/29/13 07/26/20 Carvedilol [Coreg] 12.5 mg PO BID 08/12/18 07/26/20 Repaglinide [Prandin] 1 mg PO TID 09/02/19 07/26/20 Dulaglutide [Trulicity] 0.75 mg SQ FR 10/20/19 07/26/20 Previous Rx's Medication Instructions Recorded Gabapentin [Neurontin] 300 mg PO TID cap 07/31/20 HYDROcodone/APAP 5-325MG [[place] 1 each PO Q6HR PRN tab 07/31/20 5-325] Indomethacin [Indocin] 25 mg PO TID cap 07/31/20 Allergies Allergy/AdvReac Type Severity Reaction Status Date / Time No Known Allergies Allergy Verified 07/26/20 16:16 Review of Systems ROS Statement: Those systems with pertinent positive or pertinent negative responses have been documented in the HPI. ROS Other: All systems not noted in ROS Statement are negative. Past Medical History Past Medical History: Asthma, Heart Failure, COPD, CVA/TIA, Diabetes Mellitus, Hyperlipidemia, Hypertension, Memory Impairment, Osteoarthritis (OA), Pneumonia, Skin Disorder, Syncope Additional Past Medical History / Comment(s): NIDDM type II, neuropathy bilateral hands/legs/feet, past bilateral lower leg cellulitis/wound, bilateral lower leg edema at times, bronchitis, TIA x 2, occasional low back pain, chronic L leg pain since fall approximately one year ago-pt states physician has run tests on leg but no answer why it is painful, L foot gout. History of Any Multi-Drug Resistant Organisms: None Reported Past Surgical History: Bladder Surgery, Hysterectomy, Tonsillectomy Additional Past Surgical History / Comment(s): Cystocele, R leg vein stripping, pain clinic procedures, bilateral cataract removals, colonoscopy, teeth extracted. Past Anesthesia/Blood Transfusion Reactions: No Reported Reaction, Motion S ickness Past Psychological History: Anxiety Smoking Status: Former smoker Past Alcohol Use History: None Reported Past Drug Use History: None Reported - Past Family History Father Family Medical History: No Reported History Additional Family Medical History / Comment(s): Father was healthy. He lived to be 87yrs old. Mother Family Medical History: Diabetes Mellitus Additional Family Medical History / Comment(s): Mother of diabetic complications at the age of 61 yrs. General Exam Limitations: no limitations General appearance: alert, in no apparent distress Head exam: Present: atraumatic, normocephalic, normal inspection Eye exam: Present: normal appearance, PERRL, EOMI. Absent: scleral icterus, conjunctival injection, periorbital swelling ENT exam: Present: normal exam, normal oropharynx, mucous membranes moist Neck exam: Present: normal inspection, full ROM. Absent: tenderness, meningismus, lymphadenopathy Respiratory exam: Present: normal lung sounds bilaterally. Absent: respiratory distress, wheezes, rales, rhonchi, stridor Cardiovascular Exam: Present: regular rate, normal rhythm, normal heart sounds. Absent: systolic murmur, diastolic murmur, rubs, gallop, clicks GI/Abdominal exam: Present: soft, normal bowel sounds. Absent: distended, tenderness, guarding, rebound, rigid Neurological exam: Present: alert, oriented X3, CN II-XII intact Skin exam: Present: warm, dry, intact, normal color. Absent: rash Course Vital Signs 10/09/20 10:43 Temperature 97.6 F Pulse Rate 70 Respiratory 18 Rate Blood Pressure 183/69 O2 Sat by Pulse 99 Oximetry Medical Decision Making - Medical Decision Making Labs EKG chest x-ray all unremarkable. Patient was having a panic attack upon arrival EMS. She has no complaints is awake alert and orientated family updated on results. - Lab Data Result diagrams: 10/09/20 11:00 10/09/20 11:00 Lab Results 10/09/20 10/09/20 10/09/20 Range/Units 11:00 11:00 11:00 WBC 6.1 (3.8-10.6) k/uL RBC 4.29 (3.80-5.40) m/uL Hgb 13.3 (11.4-16.0) gm/dL Hct 39.0 (34.0-46.0) % MCV 90.7 (80.0-100.0) fL MCH 31.0 (25.0-35.0) pg MCHC 34.2 (31.0-37.0) g/dL RDW 13.1 (11.5-15.5) % Plt Count 268 (150-450) k/uL MPV 8.4 Neutrophils % 55 % Lymphocytes % 27 % Monocytes % 8 % Eosinophils % 6 % Basophils % 1 % Neutrophils # 3.4 (1.3-7.7) k/uL Lymphocytes # 1.7 (1.0-4.8) k/uL Monocytes # 0.5 (0-1.0) k/uL Eosinophils # 0.4 (0-0.7) k/uL Basophils # 0.0 (0-0.2) k/uL PT 10.3 (9.0-12.0) sec INR 1.0 (<1.2) APTT 21.0 L (22.0-30.0) sec Sodium (137-145) mmol/L Potassium (3.5-5.1) mmol/L Chloride (98-107) mmol/L Carbon Dioxide (22-30) mmol/L Anion Gap mmol/L BUN (7-17) mg/dL Creatinine (0.52-1.04) mg/dL Est GFR (CKD-EPI)AfAm (>60 ml/min/1.73 sqM) Est GFR (CKD-EPI)NonAf (>60 ml/min/1.73 sqM) Glucose (74-99) mg/dL POC Glucose (mg/dL) (75-99) mg/dL POC Glu Meter Calibrator ID Calcium (8.4-10.2) mg/dL Total Bilirubin (0.2-1.3) mg/dL AST (14-36) U/L ALT (4-34) U/L Alkaline Phosphatase (38-126) U/L Troponin I (0.000-0.034) ng/mL Total Protein (6.3-8.2) g/dL Albumin (3.5-5.0) g/dL Urine Color Yellow Urine Appearance Clear (Clear) Urine pH 7.0 (5.0-8.0) Ur Specific [place] 1.013 (1.001-1.035) Urine Protein Negative (Negative) Urine Glucose (UA) Negative (Negative) Urine Ketones Negative (Negative) Urine Blood Negative (Negative) Urine Nitrite Negative (Negative) Urine Bilirubin Negative (Negative) Urine Urobilinogen <2.0 (<2.0) mg/dL Ur Leukocyte Esterase Negative (Negative) 10/09/20 10/09/20 10/09/20 Range/Units 11:00 11:00 11:07 WBC (3.8-10.6) k/uL RBC (3.80-5.40) m/uL Hgb (11.4-16.0) gm/dL Hct (34.0-46.0) % MCV (80.0-100.0) fL MCH (25.0-35.0) pg MCHC (31.0-37.0) g/dL RDW (11.5-15.5) % Plt Count (150-450) k/uL MPV Neutrophils % % Lymphocytes % % Monocytes % % Eosinophils % % Basophils % % Neutrophils # (1.3-7.7) k/uL Lymphocytes # (1.0-4.8) k/uL Monocytes # (0-1.0) k/uL Eosinophils # (0-0.7) k/uL Basophils # (0-0.2) k/uL PT (9.0-12.0) sec INR (<1.2) APTT (22.0-30.0) sec Sodium 141 (137-145) mmol/L Potassium 4.4 (3.5-5.1) mmol/L Chloride 109 H (98-107) mmol/L Carbon Dioxide 21 L (22-30) mmol/L Anion Gap 11 mmol/L BUN 27 H (7-17) mg/dL Creatinine 1.17 H (0.52-1.04) mg/dL Est GFR (CKD-EPI)AfAm 51 (>60 ml/min/1.73 sqM) Est GFR (CKD-EPI)NonAf 44 (>60 ml/min/1.73 sqM) Glucose 93 (74-99) mg/dL POC Glucose (mg/dL) 75 (75-99) mg/dL POC Glu Meter Calibrator ID Diann Jasmine Calcium 9.8 (8.4-10.2) mg/dL Total Bilirubin 0.6 (0.2-1.3) mg/dL AST 22 (14-36) U/L ALT 10 (4-34) U/L Alkaline Phosphatase 85 (38-126) U/L Troponin I <0.012 (0.000-0.034) ng/mL Total Protein 6.6 (6.3-8.2) g/dL Albumin 4.1 (3.5-5.0) g/dL Urine Color Urine Appearance (Clear) Urine pH (5.0-8.0) Ur Specific [place] (1.001-1.035) Urine Protein (Negative) Urine Glucose (UA) (Negative) Urine Ketones (Negative) Urine Blood (Negative) Urine Nitrite (Negative) Urine Bilirubin (Negative) Urine Urobilinogen (<2.0) mg/dL Ur Leukocyte Esterase (Negative) Disposition Clinical Impression: Panic attack, Anxiety Disposition: HOME SELF-CARE Condition: Stable Instructions (If sedation given, give patient instructions): Anxiety (ED) Additional Instructions: Please return to the Emergency Department if symptoms worsen or any other concerns. Is patient prescribed a controlled substance at d/c from ED?: No Referrals: Tu Coon MD [Primary Care Provider] - 1-2 days Time of Disposition: 12:40
[2020-10-09 12:54] VITALS: BP 171/62; PULSE 65; TEMP 97.1
== END 2020-10-09 12:45 | disposition home or self-care (01) ==
LOC: EC 10:34
DX: F41.0 Panic disorder [episodic paroxysmal anxiety] (principal); F41.9 Anxiety disorder, unspecified; I11.0 Hypertensive heart disease with heart failure; I50.9 Heart failure, unspecified; J44.9 Chronic obstructive pulmonary disease, unspecified; E11.40 Type 2 diabetes mellitus with diabetic neuropathy, unspecified; M19.90 Unspecified osteoarthritis, unspecified site; E78.5 Hyperlipidemia, unspecified; Z86.73 Personal history of transient ischemic attack (TIA), and cerebral infarction without residual deficits; Z87.891 Personal history of nicotine dependence; Z79.84 Long term (current) use of oral hypoglycemic drugs
CPT/HCPCS: 36415; 71046; 80053; 81003; 84484; 85025; 85610; 85730; 93005; 99285